=== PATIENT | female | born 1940 | race Caucasian/White ===

== ENCOUNTER 2019-08-22 09:25 | Emergency (ER) | payer MEDICARE, SELFPAY ==
[2019-08-22 09:26] VITALS: BP 141/68; PULSE 72; RESP 21; TEMP 36.4; O2SAT 98; BMI 25.1
[2019-08-22 10:13] LABS: Anion Gap 8 (5-15); BUN 19 mg/dL (7-18); BUN/Creat Ratio 20.7 RATIO (10-20); Calcium,Total 8.7 mg/dL (8.5-10.1); Chloride 103 mmol/L (98-107); Creatinine, Serum 0.92 mg/dL (0.55-1.02); EST Glomerular Filtration Rate 63 mL/min (>60); Est Glom Filt Rate - Afr Amer 77 mL/min (>60); Estimated Creatinine Clearance 42.36 ml/min; Glucose 95 mg/dL (74-106); Magnesium 2.3 mg/dL (1.6-2.6); Sodium Level 139 mmol/L (136-145)
--- NOTE | 2019-08-22 10:24 | ED.VIS.GEN ---
History of Present Illness Informant: Patient Narrative: 79-year-old female presents with bilateral lower extremities cramping. Patient states that today she was at a car repair store and she had cramping in her left groin. This then radiated to her right groin. She tried to stand up but was unable to. States that she laid on the ground and EMS was called. States that on transport with EMS symptoms resolved. At this time she is totally asymptomatic. She states that she does have a history of muscle cramping but this was in a new location for her. Denies any chest pain, dyspnea, nausea vomiting or diarrhea. States that she has not been drinking well recently. Does state that she has a history of chronic UTIs. She is on Bactrim daily. She was on her way to follow-up with her urologist to have a urine culture obtained. She does not want a urinalysis obtained in the ED at this time <Marcel Tapia - Last Filed: 08/22/19 16:03> <Etelvina Hall - Last Filed: 08/22/19 16:07> Chief Complaint: Dizziness Past Medical History Past Medical History: - - Gastroparesis, chronic UTIs Smoking Status: Never smoker <Marcel Tapia - Last Filed: 08/22/19 16:03> <Etelvina Hall - Last Filed: 08/22/19 16:07> - Allergies and Home Meds Allergies/Adverse Reactions: Allergies No Known Allergies Allergy (Verified 08/22/16 07:11) Primary Care Physician: Ferny Sprague III, MD [Primary Care Provider] - 3-5 Days Review of Systems General: Denies: Chills, Fever, Sweats Eyes: Denies: Visual changes - bilaterally, Diplopia ENT: Denies: Rhinorrhea, Sore throat Cardiovascular: Denies: Chest pain, Palpitations Respiratory: Denies: Dyspnea, Cough, Dyspnea on exertion Gastrointestinal: Denies: Abdominal pain, Nausea, Vomiting, Diarrhea, Melena, Hematochezia Genitourinary: Denies: Dysuria, Hematuria, Frequency Musculoskeletal: Reports: Extremity Pain - Lateral lower extremity cramping. Denies: Back pain Skin: Denies: Rash, Wounds Neurological: Denies: Headache, Weakness, Numbness <Marcel Tapia - Last Filed: 08/22/19 16:03> Physical Exam Vital Signs/Narrative: Vital Signs Temp Pulse Resp BP Pulse Ox 08/22/19 09:26 97.6 F L 72 21 H 141/68 H 98 Inital Vital Signs reviewed: Yes General: Well nourished, Well developed, No Acute Distress Head: Normocephalic, Atraumatic Eyes: Perrl, EOMI ENT: Moist mucous membranes, No rhinorrhea Neck: Supple, Nontender Cardiovascular: Regular rate, Regular rhythm, No murmurs Respiratory: No distress, CTA bilaterally, Chest nontender Abdomen: Soft, Nontender, Nondistended, Normal bowel sounds Back: Nontender, Normal Inspection Extremities: No edema, - - She has mild tenderness over the inner thigh bilaterally. No bruising or ecchymosis. Distal pulses intact, DP and PT pulses intact. Appropriate motor lower extremities bilaterally. Skin: Normal color, No rash Neurological: Alert, Oriented x3, Cranial nerves II-XII grossly intact, Normal Strength, Normal Sensation Psychological: Normal affect, Normal Mood <Marcel Tapia - Last Filed: 08/22/19 16:03> Diagnostic/Tx/Re-eval - Medical Decision Making Evaluated for bilateral lower extremity cramping. Symptoms have resolved. She is asymptomatic at this time. Also missed a recent dysuria. Urinalysis was offered but patient declined due to she was about to have an outpatient urine culture obtained today. Patient was given 1 L of IV fluid. BMP was obtained was unremarkable. Patient had a normal magnesium. Patient remained asymptomatic. Patient will be instructed to follow-up with her primary care provider. Patient agreed with the plan discharged home <Marcel Tapia - Last Filed: 08/22/19 16:03> Laboratory Results 08/22/19 09:30 Sodium 139 Potassium 4.0 Chloride 103 Carbon Dioxide 28.0 Anion Gap 8 BUN 19 H Creatinine 0.92 Estim Creat Clear Calc 42.36 Est GFR (MDRD) Af Amer 77 Est GFR (MDRD) Non-Af 63 BUN/Creatinine Ratio 20.7 H Glucose 95 Calcium 8.7 Magnesium 2.3 - Medical Decision Making Patient seen and evaluated with resident. Patient states she was at a local car repair shop this morning when she developed severe cramping in both lower extremities. She states she has had similar in the past, but never quite in this location of the severe. EMS was called and they started IV fluids. At the time of arrival to the emergency room patient states her symptoms have completely resolved. She denies any recent injury or falls. Patient sitting upright in bed no acute distress. Head and neck examination normal. Heart is regular rate and rhythm. Lung sounds are clear. Abdomen soft nontender. Neuro exam is unremarkable. She is normal strength and sensation on testing. She has strong distal pulses throughout. Chemistry studies are reviewed and unremarkable. Magnesium level is normal. Patient has had no further symptoms while in the emergency room. She will be discharged at this time will increase fluids at home. <Etelvina Hall - Last Filed: 08/22/19 16:07> ED Disposition <Marcel Tapia - Last Filed: 08/22/19 16:03> <Etelvina Hall - Last Filed: 08/22/19 16:07> - Plan for ED Patient: Disposition: Home or Assisted Living Diagnosis: Leg cramping Instructions: Muscle Spasm Referrals: Ferny Sprague III, MD [Primary Care Provider] - 3-5 Days
[2019-08-22 11:13] VITALS: BP 150/92; PULSE 75; RESP 16
== END 2019-08-22 11:14 | disposition home or self-care (01) ==
PROVIDERS: Emergency Provider Emergency Medicine; Family Provider Family Medicine; PCP Family Medicine
DX: R25.2 Cramp and spasm (principal); Z87.440 Personal history of urinary (tract) infections; Z79.2 Long term (current) use of antibiotics
CPT/HCPCS: 80048; 83735; 99284; J7030

== ENCOUNTER 2020-09-27 05:37 | Emergency (ER) | payer MEDICARE, SELFPAY ==
[2020-09-27 05:38] VITALS: BP 144/70; PULSE 77; RESP 16; TEMP 36.7; O2SAT 98; BMI 26.9
--- NOTE | 2020-09-27 05:45 | ED.VIS.GEN ---
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 She is postoperative day 6 from an ERCP where they performed a sphincterotomy and plastic biliary stent. She tells me she is not having abdominal pain. She did eat macaroni and cheese and hot chocolate yesterday. She has been having bowel movements. She states that since surgery she has been nauseated. Is not relieved with her Zofran. She states that she talk to her doctor's office the other day and they mentioned pancreatitis. She would like blood work done specifically pancreatitis testing. I informed her that be pretty odd to have a significant case of pancreatitis and not be having abdominal pain. No fevers but she states she feels warm when she gets really nauseated. She has not called her doctors and mention that the Zofran is not working. She called EMS this morning because the nausea is persisting. Her surgery was performed at [facility]. Past Medical History - Allergies and Home Meds Allergies/Adverse Reactions: Allergies cyclobenzaprine [From Flexeril] Adverse Reaction (Verified 09/27/20 05:44) Upset Stomach erythromycin base Adverse Reaction (Verified 09/27/20 05:44) Upset Stomach metoclopramide [From Reglan] Adverse Reaction (Verified 09/27/20 05:44) Upset Stomach naproxen Adverse Reaction (Verified 09/27/20 05:44) Upset Stomach nitrofurantoin [From Macrobid] Adverse Reaction (Verified 09/27/20 05:44) Upset Stomach Primary Care Physician: Ferny Sprague III, MD [Primary Care Provider] - As Needed Surgical History: cholecystectomy, - - ERCP Smoking Status: Never smoker Drugs: None Review of Systems General: Denies: Chills, Fever, Sweats Eyes: Denies: Visual changes - bilaterally, Diplopia ENT: Denies: Rhinorrhea, Sore throat Cardiovascular: Denies: Chest pain, Palpitations Respiratory: Denies: Dyspnea, Cough, Dyspnea on exertion Gastrointestinal: Reports: Nausea. Denies: Abdominal pain, Vomiting, Diarrhea, Melena, Hematochezia Genitourinary: Denies: Dysuria, Hematuria, Frequency Musculoskeletal: Denies: Back pain, Extremity Pain Skin: Denies: Rash, Wounds Neurological: Denies: Headache, Weakness, Numbness Physical Exam Vital Signs/Narrative: Vital Signs Temp Pulse Resp BP Pulse Ox 09/27/20 05:38 98.1 F 77 16 144/70 H 98 Inital Vital Signs reviewed: Yes General: Well nourished, Well developed, No Acute Distress Head: Normocephalic, Atraumatic Eyes: Perrl, EOMI ENT: Moist mucous membranes, No rhinorrhea Neck: Supple, Nontender Cardiovascular: Regular rate, Regular rhythm, No murmurs Respiratory: No distress, CTA bilaterally, Chest nontender Abdomen: Soft, Nontender, Nondistended, Normal bowel sounds Back: Nontender, Normal Inspection Extremities: Nontender, No edema Skin: Normal color, No rash Neurological: Alert, Oriented x3, Cranial nerves II-XII grossly intact, Normal Strength, Normal Sensation Psychological: - - Patient appears anxious Diagnostic/Tx/Re-eval Laboratory Last Values WBC 5.1 K/mm3 (4.4-11.0) 09/27/20 05:45 RBC 4.46 M/mm3 (4.2-5.4) 09/27/20 05:45 Hgb 13.4 g/dL (12.0-15.0) 09/27/20 05:45 Hct 40.6 % (37-47) 09/27/20 05:45 MCV 91.0 fL (81-99) 09/27/20 05:45 MCH 30.0 pg (27.0-32.0) 09/27/20 05:45 MCHC 33.0 g/dL (32-36) 09/27/20 05:45 RDW Std Deviation 42.3 fl (35.1-43.9) 09/27/20 05:45 RDW Coeff of Kirit 12.6 % (11.6-14.6) 09/27/20 05:45 Plt Count 299 K/mm3 (150-450) 09/27/20 05:45 MPV 8.8 fl (6.2-12.0) 09/27/20 05:45 Immature Gran % (Auto) 0.200 % (0.0-0.9) 09/27/20 05:45 Neut % (Auto) 53.5 % (47-70) 09/27/20 05:45 Lymph % (Auto) 35.4 % (19-41) 09/27/20 05:45 [place] % (Auto) 8.7 % (0-10) 09/27/20 05:45 Eos % (Auto) 1.4 % (0-5) 09/27/20 05:45 Baso % (Auto) 0.8 % (0-1) 09/27/20 05:45 Absolute Neuts (auto) 2.7 X10^3/uL (2.0-7.7) 09/27/20 05:45 Absolute Lymphs (auto) 1.79 X10^3/uL (0.83-4.51) 09/27/20 05:45 Nucleated RBC % 0 % (0-5) 09/27/20 05:45 Sodium 133 mmol/L (136-145) L 09/27/20 05:45 Potassium 4.2 mmol/L (3.5-5.1) 09/27/20 05:45 Chloride 101 mmol/L (98-107) 09/27/20 05:45 Carbon Dioxide 25.0 mmol/L (21.0-32.0) 09/27/20 05:45 Anion Gap 7 (5-15) 09/27/20 05:45 BUN 14 mg/dL (7-18) 09/27/20 05:45 Creatinine 0.94 mg/dL (0.55-1.02) 09/27/20 05:45 Estim Creat Clear Calc 39.01 ml/min 09/27/20 05:45 Est GFR (MDRD) Af Amer 74 mL/min (>60) 09/27/20 05:45 Est GFR (MDRD) Non-Af 61 mL/min (>60) 09/27/20 05:45 BUN/Creatinine Ratio 14.8 RATIO (10-20) 09/27/20 05:45 Glucose 130 mg/dL (74-106) H 09/27/20 05:45 Calcium 8.7 mg/dL (8.5-10.1) 09/27/20 05:45 Total Bilirubin 0.50 mg/dL (0.20-1.00) 09/27/20 05:45 Direct Bilirubin 0.11 mg/dL (0.00-0.30) 09/27/20 05:45 AST 20 U/L (15-37) 09/27/20 05:45 ALT 75 U/L (13-56) H 09/27/20 05:45 Alkaline Phosphatase 110 U/L (45-117) 09/27/20 05:45 Total Protein 7.4 g/dL (6.4-8.2) 09/27/20 05:45 Albumin 3.9 g/dL (3.2-5.0) 09/27/20 05:45 Globulin 3.5 g/dL (2.2-4.2) 09/27/20 05:45 Lipase 131 U/L (73-393) 09/27/20 05:45 - Medical Decision Making Patient received 6.25 mg of Phenergan. She ran out on her call light stating that she is feeling shaky but her nausea was better. She then called out and stated that she was going to throw up. Patient received some Benadryl. Certainly do not feel comfortable giving her Compazine or Phenergan if she is developing a potential akathisia. I went to recommend that she contact her conference translator for any further advice on nausea medicines. However she is eating and drinking. I do not see any evidence of an emergent condition. ED Disposition - Plan for ED Patient: Disposition: Home or Assisted Living Diagnosis: Nausea Instructions: After Endoscopic Retrograde Cholangiopancreatography (ERCP) Referrals: Ferny Sprague III, MD [Primary Care Provider] - As Needed Additional Instructions: Please call your doctor and discuss your nausea. You may inform them that today you had a normal white blood cell count. Your hemoglobin was normal. Your liver enzymes are normal and your lipase level is normal.
[2020-09-27] MEDS: proMETHazine 25 MG/ML Syringe 6.25 MG IV (05:50)
[2020-09-27 05:51] LABS: Absolute Lymphocyte Count 1.79 X10^3/uL (0.83-4.51); Absolute Neutrophil Count 2.7 X10^3/uL (2.0-7.7); Basophil# 0.04 X10^3/uL; Basophil% 0.8 % (0-1); Eosinophil# 0.07 X10^3/uL; Eosinophils% 1.4 % (0-5); Hematocrit 40.6 % (37-47); Hemoglobin 13.4 g/dL (12.0-15.0); Lymphocyte # 1.79 X10^3/ul (4.0); Lymphocyte % 35.4 % (19-41); Mean Platelet Vol. 8.8 fl (6.2-12.0); Monocyte# 0.44 X10^3/uL; Monocyte% 8.7 % (0-10); NRBC Flagged by Analyzer 0 % (0-5); Neutrophil % 53.5 % (47-70); Platelet Count 299 K/mm3 (150-450); RBC Distribution Width CV 12.6 % (11.6-14.6); RBC Distribution Width SD 42.3 fl (35.1-43.9); Red Blood Count 4.46 M/mm3 (4.2-5.4); White Blood Count 5.1 K/mm3 (4.4-11.0)
[2020-09-27] MEDS: 0.9% Normal Saline 1,000 ML 999 ML IV (05:51)
[2020-09-27 06:13] LABS: AST(SGOT) 20 U/L (15-37); Alanine Aminotransfer ALT/SGPT 75 U/L (13-56); Albumin, Serum 3.9 g/dL (3.2-5.0); Alkaline Phosphatase 110 U/L (45-117); Anion Gap 7 (5-15); BUN 14 mg/dL (7-18); BUN/Creat Ratio 14.8 RATIO (10-20); Bilirubin, Direct 0.11 mg/dL (0.00-0.30); Calcium,Total 8.7 mg/dL (8.5-10.1); Chloride 101 mmol/L (98-107); Creatinine, Serum 0.94 mg/dL (0.55-1.02); EST Glomerular Filtration Rate 61 mL/min (>60); Est Glom Filt Rate - Afr Amer 74 mL/min (>60); Estimated Creatinine Clearance 39.01 ml/min; Globulin 3.5 g/dL (2.2-4.2); Glucose 130 mg/dL (74-106); Lipase 131 U/L (73-393); Potassium 4.2 mmol/L (3.5-5.1); Protein, Total 7.4 g/dL (6.4-8.2); Sodium Level 133 mmol/L (136-145)
[2020-09-27] MEDS: DiphenhydrAMINE 50 MG/ML Syringe 12.5 MG IV (06:28)
[2020-09-27 07:14] VITALS: BP 131/69; PULSE 72; RESP 15; O2SAT 98
== END 2020-09-27 07:16 | disposition home or self-care (01) ==
PROVIDERS: Emergency Provider Emergency Medicine; PCP Family Medicine
DX: R11.0 Nausea (principal)
CPT/HCPCS: 80048; 80076; 83690; 85025; 96361; 96374; 96375; 99285; J7030; A4216

== ENCOUNTER 2020-10-05 17:28 | Observation (INO) | payer MEDICARE, SELFPAY ==
[2020-10-05] VITALS (7 sets, daily range): BP systolic 147–157; BP diastolic 72–88; PULSE 67–75; RESP 16–18; TEMP 35.9–36.6; O2SAT 98–99; BMI 25.7; BMI 24.7
--- NOTE | 2020-10-05 18:04 | CT_ITS ---
STUDY: CT BRAIN WITHOUT CONTRAST REASON FOR EXAM: Female, 80 years old. ACUTE OCCIPITAL HEADACHE WITH NAUSEA AND VERTIGO. RADIATION DOSAGE (If Supplied By Facility): CTDIvol = ( 44.99 ) mGy, DLP = ( 745.49 ) mGycm TECHNIQUE: Transaxial CT imaging of the brain was performed without administration of intravenous contrast material. Individualized dose optimization techniques were used for this CT. COMPARISON: No relevant priors. FINDINGS: Normal soft tissue structures. Normal calvarium. Normal size ventricles and extra-axial spaces for the patient''s age. Normal white matter tracts of the cerebral hemispheres. Normal basal ganglia and thalami. Normal brainstem. Normal cerebellum. There is no intracranial hemorrhage. There are no findings of an acute ischemic infarction. Normal visualized paranasal sinuses. CT/Brain/Head without Contrast IMPRESSION: Normal unenhanced CT scan of the brain. Electronically Signed: Regina Cardona MD at 19:08 EST , Service support ,
--- NOTE | 2020-10-05 18:08 | ED.VIS.GEN ---
History of Present Illness Chief Complaint: Headache Detail of Chief Complaint: Both occipital headache and positional vertigo Informant: Patient Onset: Hours - Onset 0900 Context: Sudden Onset Timing: Continuous Quality: Pain Location: Occiput Current Severity: Mild Maximum Severity: Severe Worsened by: Nothing Relieved by: Nothing Associated Symptoms: Chronic nausea for the past 1 to 2 weeks Narrative: Patient is a 80-year-old woman who had obstruction of her biliary duct requiring ERCP with placement of stent. She was discharged from [facility] September 20. She developed a fever with nausea and was seen at [place] emergency room. The cause of her fever was unknown. She was discharged home. On September 30 she was contacted by staff at [facility] and instructed that she needed to return because her blood cultures were positive. She was treated with IV antibiotics and discharged to home on ciprofloxacin. She denies photophobia. Denies neck pain or neck stiffness. She denies paresthesia, anesthesia or motor weakness. She denies double vision, blurred vision loss of vision. She states she has been followed by ophthalmology for increased ocular pressure. She does not have diagnosis of glaucoma. She is on no medication. She denies problems with speech or swallowing. She denies problems with walking. She states if she leans back she becomes dizzy . When asked to define what she means by dizzy she informed me that she is/room is spinning. She presently is not dizzy. The dizziness is transient and positional based on her description. Doctor sent her in to be tested for Covid. Prior similar symptoms: No Recent Illness/Hospitalization: Yes - Past Medical History (1) Biliary obstruction requiring placement Status: Resolved (2) Bacteremia Status: Acute Past Medical History - Allergies and Home Meds Allergies/Adverse Reactions: Allergies cyclobenzaprine [From Flexeril] Adverse Reaction (Verified 09/27/20 05:44) Upset Stomach erythromycin base Adverse Reaction (Verified 09/27/20 05:44) Upset Stomach metoclopramide [From Reglan] Adverse Reaction (Verified 09/27/20 05:44) Upset Stomach naproxen Adverse Reaction (Verified 09/27/20 05:44) Upset Stomach nitrofurantoin [From Macrobid] Adverse Reaction (Verified 09/27/20 05:44) Upset Stomach Primary Care Physician: Ferny Sprague III, MD [Primary Care Provider] - Prior records reviewed: No Surgical History: cholecystectomy, - - ERCP Lives: Alone Smoking Status: Never smoker Alcohol: None Drugs: None Review of Systems General: Denies: Chills, Fever, Malaise, Sweats Eyes: Reports: - - He denies photophobia.. Denies: Visual changes - bilaterally, Blurred Vision - bilaterally, Diplopia ENT: Denies: Bilateral ear pain, Rhinorrhea, Sore throat Cardiovascular: Denies: Chest pain, Palpitations Respiratory: Denies: Dyspnea, Cough, Dyspnea on exertion Gastrointestinal: Reports: Nausea. Denies: Abdominal pain, Vomiting, Diarrhea, Constipation, Melena, Hematochezia, -, - Genitourinary: Denies: Dysuria, Hematuria, Frequency Musculoskeletal: Denies: Myalgias, Arthralgias, Neck pain, Back pain, Swelling, Extremity Pain Skin: Denies: Rash Neurological: Reports: Headache, - - Dizziness as described in the HPI.. Denies: Weakness, Parasthesia, Numbness Hematologic: Denies: Easy bruising, Easy bleeding Physical Exam Vital Signs/Narrative: Vital Signs Temp Pulse Resp BP Pulse Ox 10/05/20 17:31 96.7 F L 75 16 157/88 H 99 10/05/20 17:29 96.7 F L 72 16 157/88 H 98 Inital Vital Signs reviewed: Yes General: Well nourished, Well developed, No Acute Distress Head: Normocephalic, Atraumatic Eyes: Perrl, EOMI, - - There is no APD. There is no papilledema.. Negative for: Pale conjunctiva, Scleral icterus ENT: Moist mucous membranes, No rhinorrhea Neck: Supple, Nontender, No lymphadenopathy, No JVD Cardiovascular: Regular rate, Regular rhythm, No murmurs Respiratory: No distress, CTA bilaterally, Chest nontender Abdomen: Soft, Nontender, Nondistended, Normal bowel sounds Back: Nontender, Normal Inspection. Negative for: CVA tenderness Extremities: Nontender, No edema. Negative for: Calf Tenderness Skin: Normal color, No rash, No Trauma. Negative for: Cyanosis, Diaphoresis, Jaundice, Pallor, Rash, Trauma Neurological: Alert, Oriented x3, Cranial nerves II-XII grossly intact, Normal Strength, Normal Sensation, Normal DTR, - - Cerebellar testing is normal. Psychological: Normal affect, Normal Mood Diagnostic/Tx/Re-eval Impressions Brain CT 10/05/20 18:04 IMPRESSION: Normal unenhanced CT scan of the brain. Electronically Signed: Regina Cardona MD at 19:08 EST , Service support , 10/05/20 18:04 Brain/Head without Contrast [CT] Stat 10/05/20 18:10 Mucosa - Nose SARS-CoV-2 Antigen (Rapid) - Final Laboratory Results 10/05/20 10/05/20 18:15 18:15 WBC 6.3 RBC 4.13 L Hgb 12.1 Hct 37.2 MCV 90.1 MCH 29.3 MCHC 32.5 RDW Std Deviation 39.1 RDW Coeff of Kirit 12.0 Plt Count 365 MPV 8.3 Immature Gran % (Auto) 1.000 H Neut % (Auto) 51.9 Lymph % (Auto) 34.1 [place] % (Auto) 9.4 Eos % (Auto) 2.6 Baso % (Auto) 1.0 Absolute Neuts (auto) 3.3 Absolute Lymphs (auto) 2.14 Nucleated RBC % 0 ESR 20 Sodium 134 L Potassium 3.5 Chloride 101 Carbon Dioxide 28.0 Anion Gap 5 BUN 9 Creatinine 0.72 Estim Creat Clear Calc 36.67 Est GFR (MDRD) Af Amer 101 Est GFR (MDRD) Non-Af 83 BUN/Creatinine Ratio 12.5 Glucose 102 Calcium 8.7 C-React Prot Ext Range 19.70 H Since there is no evidence of acute subarachnoid hemorrhage Lorenzo-Hallpike maneuver was performed. Patient reported symptoms with head to the left. There was no nystagmus noted. Kezia maneuver was performed. When patient was on her left side since she reported symptoms when her head was to the left during the Sutherland-Hallpike she reports diplopia. There is no nystagmus. Since patient is reporting diplopia doubt this is benign paroxysmal positional vertigo. This may represent a central process and MRI is indicated to complete her work-up. - Medical Decision Making Cute headache in an elderly woman need to evaluate for vasculitis, subarachnoid hemorrhage, viral illness. Appropriate blood work was ordered as well as CAT scan of the head. If CAT scan head does not reveal any abnormality will perform Sutherland-Hallpike maneuver and Kezia maneuver for her positional dizziness . ED Disposition - Plan for ED Patient: Disposition: Acute Care Hospital [facility] Diagnosis: Vertigo, Diplopia, Cephalgia Referrals: Ferny Sprague III, MD [Primary Care Provider] -
[2020-10-05 18:30] LABS: Absolute Lymphocyte Count 2.14 X10^3/uL (0.83-4.51); Absolute Neutrophil Count 3.3 X10^3/uL (2.0-7.7); Basophil# 0.06 X10^3/uL; Eosinophil# 0.16 X10^3/uL; Eosinophils% 2.6 % (0-5); Hematocrit 37.2 % (37-47); Hemoglobin 12.1 g/dL (12.0-15.0); Lymphocyte # 2.14 X10^3/ul (4.0); Lymphocyte % 34.1 % (19-41); Mean Corp Hgb Conc 32.5 g/dL (32-36); Mean Corpuscular Hgb 29.3 pg (27.0-32.0); Mean Corpuscular Volume 90.1 fL (81-99); Mean Platelet Vol. 8.3 fl (6.2-12.0); Monocyte# 0.59 X10^3/uL; Monocyte% 9.4 % (0-10); NRBC Flagged by Analyzer 0 % (0-5); Neutrophil # 3.26 X10^3/uL (2.7-7.7); Neutrophil % 51.9 % (47-70); Platelet Count 365 K/mm3 (150-450); RBC Distribution Width SD 39.1 fl (35.1-43.9); Red Blood Count 4.13 M/mm3 (4.2-5.4); White Blood Count 6.3 K/mm3 (4.4-11.0)
[2020-10-05 18:42] LABS: Anion Gap 5 (5-15); BUN 9 mg/dL (7-18); BUN/Creat Ratio 12.5 RATIO (10-20); Calcium,Total 8.7 mg/dL (8.5-10.1); Chloride 101 mmol/L (98-107); Creatinine, Serum 0.72 mg/dL (0.55-1.02); EST Glomerular Filtration Rate 83 mL/min (>60); Est Glom Filt Rate - Afr Amer 101 mL/min (>60); Estimated Creatinine Clearance 36.67 ml/min; Glucose 102 mg/dL (74-106); Potassium 3.5 mmol/L (3.5-5.1); Sodium Level 134 mmol/L (136-145)
[2020-10-05 18:43] LABS: Erythrocyte Sedimentation Rate 20 mm/hr (0-30)
--- NOTE | 2020-10-05 19:51 | HP.PCM_ITS ---
Problem List (1) Vertigo Status: Acute (2) Cephalgia Status: Acute Qualifiers: Headache type: unspecified Headache chronicity pattern: unspecified pattern (3) Diplopia Status: Acute (4) HTN (hypertension) Status: Chronic Qualifiers: Hypertension type: essential hypertension Qualified Code(s): I10 - Essential (primary) hypertension (5) HLD (hyperlipidemia) Status: Chronic Qualifiers: Hyperlipidemia type: unspecified Qualified Code(s): E78.5 - Hyperlipidemia, unspecified (6) Hypothyroidism Status: Chronic Qualifiers: Hypothyroidism type: unspecified Qualified Code(s): E03.9 - Hypothyroidism, unspecified (7) Biliary obstruction requiring placement Status: Resolved (8) Bacteremia Status: Chronic History of Present Illness Date of Admission: 10/05/20 Chief Complaint: Vertigo The patient is a 80 y/o F w/ PMHx: HTN, HLD, Hypothyroidism, Recent biliary stent placement (ERCP ) with history of bacteremia with recent admissi on [facility], discharged on 09/20/20 with ongoing treatment with oral ciprofloxacin started 2 days prior to current presentation with the duration of treatment for approximately 10 days per discussion with her via infectious disease who presents to the [facility] ED on with history of onset suddenly this a.m. at approximately 9 AM onset of severe diffuse headache described as a constant aching with no light or sound sensitivity specifically rated at that time a 9 of 10 in severity and upon current presentation improved to 2 out of 10 now primarily focused in the posterior occiput and neck region with then onset sensation of dizziness and when she attempted to get up and ambulate onset of a spinning vertiginous sensation, not improving with associated significant nausea without emesis with no recent fevers or chills following recent evaluation and start on antibiotic therapy for bacteremia following recent biliary stent placement prompting ED evaluation. In the ED Inez-Hallpike maneuver elicited nausea and dizziness when the head was turned to the left but there is no evident nystagmus with attempted Kezia maneuver with onset double vision specifically when turning head to the left. Double vision has resolved upon evaluation of patient following ED evaluation. Work-up in the ED included T 96.7, heart rate 72, BP 157/88, respiratory rate 16, 98% on room air, CBC with WBC 6.3, hemoglobin 12.1, platelet 365 with out marked shift however patient with immature increased granulocytes, MP with sodium 134, CRP 19.70, rapid antigen Covid testing negative, CT of the brain with no acute intracranial findings. Past Medical History Past Medical History (Chronic Problems): Chronic Problems Bacteremia (Chronic) HTN (hypertension) (Chronic) HLD (hyperlipidemia) (Chronic) Hypothyroidism (Chronic) Allergies cyclobenzaprine [From Flexeril] Adverse Reaction (Verified 09/27/20 05:44) Upset Stomach erythromycin base Adverse Reaction (Verified 09/27/20 05:44) Upset Stomach metoclopramide [From Reglan] Adverse Reaction (Verified 09/27/20 05:44) Upset Stomach naproxen Adverse Reaction (Verified 09/27/20 05:44) Upset Stomach nitrofurantoin [From Macrobid] Adverse Reaction (Verified 09/27/20 05:44) Upset Stomach Home Medications: Ambulatory Orders Medication Instructions Recorded Levothyroxine [Synthroid] 25 mcg PO DAILY 04/22/16 Estradiol 1 applicatio VAGINAL QHS 09/27/20 Lactobacillus Acidophilus 1 ea PO DAILY 09/27/20 [Probiotic] Potassium (Otc) [Potassium Otc] 2 tab PO DAILY 09/27/20 Ciprofloxacin [Cipro] 500 mg PO BID 10/05/20 Surgical History: cholecystectomy, - - ERCP with recent biliary stent placement, remote cholecystectomy, hysterectomy, appendectomy, pelvic floor surgery intervention. 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 Denies: Chills, Fever, Weight Change HEENT: Reports: Head Aches, Visual Changes. Denies: Sinus Congestion, Sinus Drainage Cardiovascular: Denies: Chest Pain, Palpitations Respiratory: Denies: Cough, Shortness of breath at rest, Sputum production Gastrointestinal: Reports: Nausea. Denies: Abdominal Pain, Vomiting Genitourinary: Denies: Dysuria Musculoskeletal: Denies: Joint Pain, Joint Tenderness Skin: Denies: Rash, Wounds Neurological: Reports: Double vision, - - Vertigo.. Denies: Focal weakness, Numbness, Tingling Psychiatric: Denies: Anxiety, Depression, Homicidal Ideations, Suicidal Ideations Hematologic/ Lymphatic: Denies: Easy Bruising, Easy Bleeding VTE Information - Inpt Only VTE Present on Admission: No VTE Mechan Device Prophylaxis: SCD's VTE Pharm Prophylaxis ordered?: Yes Patient Problems: Active and Suspected Problems Vertigo (Acute) Diplopia (Acute) Cephalgia (Acute) Subjective: Patient seated upright in the ED bed, fatigued appearance otherwise no acute distress, denies any further left sided double vision changes. Objective: Physical Examination: General: awake, alert, oriented x 3 and cooperative, seated upright in bed, fatigued appearance, notes headache has localized to the neck and occiput region but improved, 1210 in severity, no double vision currently, vertiginous symptoms only with certain positional changes to the left. Skin: normal color, turgor, no icterus, cyanosis. HEENT: AT/NC, EOMI, no obvious nystagmus even with left head turn, PERRLA, dry MM, no carotid bruits or JVD noted. Lungs: Diminished breath sounds, greater bases, moderate decrease BL bases, no rales, ronchi or wheezing. Heart: Regular rate and rhythm; no gallop, rub audible. Abdomen: soft, NTTP, ND, normal BS, no HSM. Extremities: no cyanosis, clubbing, or edema. Neurological: patient awake, alert, oriented as noted; cognitive function intact; pupils equally reactive to light and accomodation; cranial nerves II-XII grossly normal, moving all 4 extremities, no focal deficits, strength difficult to assess given significant malaise and fatigue and vertiginous symptoms, appears preserved, negative [id number] and [id number], negative Babinski, unable to elicit nystagmus with evaluation. Psychiatric: affect appears fatigued otherwise normal, no acute evidence of depressive or anxiety feelings. - Physical Exam Vitals/I&O's: Vital Signs Temp Pulse Resp BP Pulse Ox 96.7 F L 75 16 157/88 H 99 10/05/20 17:31 10/05/20 17:31 10/05/20 17:31 10/05/20 17:31 10/05/20 17:31 Oxygen Delivery Method Room Air Weight: 140 lb 10.479 oz Body Mass Index (BMI) 25.7 Microbiology Past 72 Hours 10/05/20 18:10 Mucosa - Nose SARS-CoV-2 Antigen (Rapid) - Final Laboratory Results 10/05/20 18:15: WBC 6.3, RBC 4.13 L, Hgb 12.1, Hct 37.2, MCV 90.1, MCH 29.3, MCHC 32.5, RDW Std Deviation 39.1, RDW Coeff of Kirit 12.0, Plt Count 365, MPV 8.3, Immature Gran % (Auto) 1.000 H, Neut % (Auto) 51.9, Lymph % (Auto) 34.1, Mo no % (Auto) 9.4, Eos % (Auto) 2.6, Baso % (Auto) 1.0, Absolute Neuts (auto) 3.3, Absolute Lymphs (auto) 2.14, Nucleated RBC % 0, ESR 20 10/05/20 18:15: Sodium 134 L, Potassium 3.5, Chloride 101, Carbon Dioxide 28.0, Anion Gap 5, BUN 9, Creatinine 0.72, Estim Creat Clear Calc 36.67, Est GFR (MDRD) Af Amer 101, Est GFR (MDRD) Non-Af 83, BUN/Creatinine Ratio 12.5, Glucose 102, Calcium 8.7, C-React Prot Ext Range 19.70 H Assessment/Plan All Active Problems Biliary obstruction requiring placement (Resolved) Vertigo (Acute) Diplopia (Acute) Cephalgia (Acute) The patient is a 80 y/o F w/ PMHx: HTN, HLD, Hypothyroidism, Recent biliary stent placement (ERCP ) with history of bacteremia with recent admission [facility], discharged on 09/20/20 with ongoing treatment with oral ciprofloxacin started 2 days prior to current presentation with the duration of treatment for approximately 10 days per discussion with her via infectious disease who presents to the [facility] ED on with history of onset severe headache with associated vertiginous sensation not improving. 1. Vertigo with vision changes, atypical presentation, possible BPPV versus acute CVA: Will admit to PCU, will obtain MRI Brain, MRA Head and Neck, ECHO, PT/OT/Speech/Nutrition evaluation per protocol. Will plan consultation with Neurology for evaluation once imaging obtained. Will allow permissive HTN given acute presentation pending MRI brain, maintain on asa, add statin w/ AM FLP, fall precautions. Mag, TSH, FLP, HgbA1c pending. CRP is elevated 19.70 but patient with recent infection as noted #2. 2. Recent biliary stent placement with bacteremia: Records requested, will continue ciprofloxacin regimen with noted plan for 10-day duration, currently on second day of treatment per patient discussion. 3. Hypothyroidism: Continue home synthroid regimen, TSH and free T4 pending. 4. Hypertension: As noted allowing permissive hypertension, add regimen back once appropriate, as needed agents. 5. Hyperlipidemia: Not on regimen, will add moderate dose statin given age, FLP in AM. 6. DVT prophylaxis: SCDs, Lovenox. 7. CODE status: Patient ABDIRIZAK is her daughter Siena Hay and living will is currently in place. Discussed CODE status at length including difference between FULL code, DNR-CCA and DNR-CC status. Following discussions about the differences in these status, requested DNR-CCA, no intubation status. Advanced Care Planning Face to Face Time: 16 minutes. OBSV E&M: 72129 Initial observation care L3 Procedures: 19686 Advncd Care Plan 30 Min
--- NOTE | 2020-10-05 20:48 | ECHOD_ITS ---
Reason For Study: CVA Procedure This was a 2D Doppler, Color Flow transthoracic echocardiogram. Exam performed portable in patient room. Left Ventricle Normal LV size. The estimated ejection fraction is 70 %. No evidence for diastolic dysfunction. No regional wall motion abnormalities noted. Right Ventricle Normal RV size. Normal systolic function. Atria Normal left atrium. Normal right atrium. No doppler evidence for ASD. Bubble contrast study negative for right to left interatrial shunt. Mitral Valve There is no mitral valve stenosis. No mitral valve insufficiency. Tricuspid Valve There is no tricuspid stenosis. Trivial tricuspid valve insufficiency. Pulmonary artery systolic pressure is 25-30 mmHg. Aortic Valve Trisinus/trileaflet aortic valve. There is no aortic stenosis. No aortic valve insufficiency. Pulmonic Valve There is no pulmonic valvular stenosis. No pulmonic valve insufficiency. Medication Performed a rapid injection of agitated mix of 9 cc saline and 1cc air to assess for atrial septal defect. MMode/2D Measurements & Calculations LVIDd: 4.0 cm IVSd: 0.68 cm Ao root diam: 2.5 cm LVIDs: 2.5 cm LVPWd: 0.63 cm RVDd: 2.7 cm FS: 37.4 % LAV(MOD-bp): 41.4 ml LVAd ap4: 23.9 cm2 SV(MOD-sp4): 38.7 ml LAV(MOD-bp) Indexed: 25.4 ml/m2 EDV(MOD-sp4): 60.1 ml LAV(MOD-sp2): 41.8 ml EDV(sp4-el): 61.8 ml LAV(MOD-sp4): 31.9 ml LVAs ap4: 12.4 cm2 ESV(MOD-sp4): 21.4 ml ESV(sp4-el): 21.5 ml EF(MOD-sp4): 64.4 % EF(sp4-el): 65.3 % SV(sp4-el): 40.3 ml LA dimension(2D): 3.0 cm LA A4 area: 12.7 cm2 RA A4 area: 12.8 cm2 Time Measurements MV dec time: 0.21 sec Doppler Measurements & Calculations MV E max jung: 79.0 cm/sec Lat Peak E' Jung: 10.3 cm/sec Med Peak E' Jung: 6.4 cm/sec MV A max jung: 88.8 cm/sec E/E' lat: 7.6 E/E' med: 12.4 MV E/A: 0.89 Ao V2 max: 130.9 cm/sec LV V1 max: 102.3 cm/sec PA V2 max: 103.8 cm/sec Ao max P.9 mmHg LV V1 max P.2 mmHg TR max jung: 243.5 cm/sec TR max P.7 mmHg Interpretation Summary The estimated ejection fraction is 70 %. No evidence for diastolic dysfunction. Ordering Physician: Gisele Victor Referring Physician: JILL VILLEGAS III Performed By: Shayla Swanson, KOREY, RVT
[2020-10-05 21:16] LABS: Magnesium 2.1 mg/dL (1.6-2.6)
[2020-10-05] MEDS: Ondansetron 4 MG/2 ML Vial IV (22:10)
[2020-10-05] MEDS: Acetaminophen 325 MG Tablet 650 MG PO (22:10)
[2020-10-05] MEDS: Ciprofloxacin 500 MG Tablet PO (22:10)
[2020-10-05] MEDS: 0.9% Saline Lock 10 ML Syringe IV (22:11)
[2020-10-05] MEDS: Meclizine 12.5 MG Tablet PO (22:11)
[2020-10-05] MEDS: 0.9% Normal Saline 1,000 ML 100 ML IV (22:11)
[2020-10-06] VITALS (17 sets, daily range): BP systolic 115–160; BP diastolic 56–103; PULSE 65–81; RESP 14–19; TEMP 36.3–36.9; O2SAT 95–100
[2020-10-06] MEDS: proCHLORPERazine 10 MG/2 ML Vial 5 MG IV (01:19)
[2020-10-06] MEDS: Levothyroxine 25 MCG TABLET PO (04:59)
[2020-10-06] MEDS: Meclizine 12.5 MG Tablet PO ×3 (04:59→22:29)
[2020-10-06 05:39] LABS: Absolute Lymphocyte Count 1.71 X10^3/uL (0.83-4.51); Absolute Neutrophil Count 2.8 X10^3/uL (2.0-7.7); Basophil# 0.06 X10^3/uL; Basophil% 1.1 % (0-1); Eosinophil# 0.14 X10^3/uL; Eosinophils% 2.6 % (0-5); Hematocrit 35.8 % (37-47); Hemoglobin 11.6 g/dL (12.0-15.0); Lymphocyte # 1.71 X10^3/ul (4.0); Lymphocyte % 31.8 % (19-41); Mean Corp Hgb Conc 32.4 g/dL (32-36); Mean Corpuscular Volume 89.5 fL (81-99); Mean Platelet Vol. 8.1 fl (6.2-12.0); Monocyte# 0.61 X10^3/uL; Monocyte% 11.3 % (0-10); NRBC Flagged by Analyzer 0 % (0-5); Neutrophil # 2.82 X10^3/uL (2.7-7.7); Neutrophil % 52.5 % (47-70); Platelet Count 364 K/mm3 (150-450); RBC Distribution Width SD 39.5 fl (35.1-43.9); White Blood Count 5.4 K/mm3 (4.4-11.0)
[2020-10-06 06:06] LABS: ALB/GLOB Ratio 0.9 RATIO (0.9-2.4); AST(SGOT) 12 U/L (15-37); Alanine Aminotransfer ALT/SGPT 24 U/L (13-56); Albumin, Serum 3.1 g/dL (3.2-5.0); Alkaline Phosphatase 91 U/L (45-117); Anion Gap 6 (5-15); BUN 10 mg/dL (7-18); BUN/Creat Ratio 13.2 RATIO (10-20); Calcium,Total 8.4 mg/dL (8.5-10.1); Chloride 106 mmol/L (98-107); Cholesterol 174 mg/dL (200); Creatinine, Serum 0.76 mg/dL (0.55-1.02); EST Glomerular Filtration Rate 79 mL/min (>60); Est Glom Filt Rate - Afr Amer 95 mL/min (>60); Estimated Creatinine Clearance 36.67 ml/min; Globulin 3.3 g/dL (2.2-4.2); Glucose 102 mg/dL (74-106); High Density Lipoprotein 41 mg/dL; Protein, Total 6.4 g/dL (6.4-8.2); Sodium Level 138 mmol/L (136-145); T4 Free Direct 1.02 ng/dL (0.76-1.46); Triglycerides 92 mg/dL; Very Low Density Lipoprotein 18 mg/dL (5-40)
[2020-10-06 07:09] LABS: Hemoglobin A1c 5.9 % (3.8-5.6)
--- NOTE | 2020-10-06 08:10 | RAD_ITS ---
STUDY: X-RAY CHEST REASON FOR EXAM: Female, 80 years old. SCREENING FOR MRI, SANCHEZ, VERTIGO TECHNIQUE: Single AP portable view of the chest. COMPARISON: None. FINDINGS: The lungs are clear and expanded. There is no demonstrated pleural abnormality. Normal size heart. Normal mediastinum and saurabh. Normal visualized pulmonary arteries. Normal visualized aortic arch and descending thoracic aorta. Normal visualized thoracic spine. There is degenerative osteoarthritis of the bilateral shoulders. There is no demonstrated abnormality of the visualized soft tissue structures of the upper abdomen. RAD/Chest 1 View (Portable) IMPRESSION: Degenerative changes, as described above. No demonstrated acute cardiopulmonary process. Electronically Signed: Brissa Goddard, at 8:21 EST Tel , Service support ,
[2020-10-06] MEDS: Aspirin 81 MG TAB.CHEW PO (08:26)
[2020-10-06] MEDS: LORazepam 2 MG/ML Syringe 0.5 MG IV (08:51)
[2020-10-06] MEDS: 0.9% Saline Lock 10 ML Syringe IV (08:52)
--- NOTE | 2020-10-06 09:00 | MRI_ITS ---
STUDY: MRA OF THE HEAD WITHOUT CONTRAST REASON FOR EXAM: Female, 80 years old. vertigo, diplopia,h/a TECHNIQUE: 3-D [id number] (TOF) imaging was performed with MIPs. The study was performed unenhanced. COMPARISON: None. FINDINGS: Normal bilateral petrous carotid arteries. Normal right cavernous carotid artery with a normal supraclinoid bifurcation. Normal left cavernous carotid artery with a normal supraclinoid bifurcation. Normal right A1 segments of the anterior cerebral artery. Normal left A1 segments of the anterior cerebral artery. Normal intact anterior communicating artery (ACOM). Normal bilateral A2 segments of the anterior cerebral arteries. Normal right M1 and M2 segments of the middle cerebral arteries, with a normal M1 bifurcation. Normal left M1 and M2 segments of the middle cerebral arteries, with a normal M1 bifurcation. There is non-visualization of the right posterior communicating artery (PCOM). 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 Normal bilateral vertebral arteries. Normal basilar artery with a normal basilar bifurcation. The visualized bilateral superior cerebellar (SCA) arteries are normal. Normal bilateral P1, P2 and visualized P3 segments of the posterior cerebral arteries. There is no demonstrated aneurysm of the ione of Matta. There is no major vessel occlusion or hemodynamically significant stenosis. There is no demonstrated abnormality of the visualized brain. MRI/MRA Head ONLY without Contrast IMPRESSION: Normal MRA of the head Electronically Signed: Brissa Goddard, at 11:24 EST Tel , Service support ,
--- NOTE | 2020-10-06 09:00 | MRI_ITS ---
We are attempting to reach an attending provider to discuss findings. An addendum with communication details will be sent when the communication is complete. STUDY: MRI BRAIN WITHOUT CONTRAST REASON FOR EXAM: Female, 80 years old. cva, diplopia, vertigo TECHNIQUE: Standardized multiplanar fat and water weighted pulse sequences were obtained. COMPARISON: 10/05/2020 FINDINGS: Normal size of the ventricles and extra-axial spaces for the patient''s age. There are a limited number of small white matter hyperintensities, distributed throughout the deep white matter tracts of the cerebral hemispheres, consistent with mild chronic white matter ischemic changes. There is a small new right subdural hematoma measuring 3 mm in maximum thickness overlying the right cerebellar hemisphere. Normal bilateral basal ganglia. Normal thalami. There is no extra-axial fluid accumulation. Normal flow voids within the major intracranial circulation suggesting patency by spin echo criteria. Normal sella turcica, pituitary gland, infundibular stalk, optic chiasm and hypothalamus. Normal tectal plate and pineal gland. Normal midbrain, filomena and medulla. Normal cerebellum. Normal basal cisterns. Normal bilateral temporal bones. Normal bilateral internal auditory canals. No demonstrated orbital abnormality, within the constraints of a routine brain study. Normal visualized paranasal sinuses. Normal calvarium and skull base. Normal visualized soft tissue structures. Normal visualized upper cervical spine. MRI/Brain without Contrast IMPRESSION: There is a small new right subdural hematoma measuring 3 mm in maximum thickness overlying the right cerebellar hemisphere. Electronically Signed: Brissa Goddard, at 11:23 EST Tel , Service support ,
--- NOTE | 2020-10-06 09:00 | MRI_ITS ---
STUDY: MRA NECK WITHOUT CONTRAST REASON FOR EXAM: Female, 80 years old. cva, diplopia, vertigo TECHNIQUE: Source images were obtained, MIPs were performed. The study was performed unenhanced. COMPARISON: None. FINDINGS: RIGHT CAROTID ARTERIES: Normal right common carotid artery (CCA). Normal right common carotid bulb. Normal origin of the right internal carotid (ICA) artery without a hemodynamically significant stenosis. Normal visualized cervical portion of the right internal carotid artery. Normal origin of the right external carotid artery (ECA). LEFT CAROTID ARTERIES: Normal left common carotid artery (CCA). Normal left common carotid bulb. Normal origin of the left internal carotid (ICA) artery without a hemodynamically significant stenosis. Normal visualized cervical portion of the left internal carotid artery. Normal origin of the left external carotid artery (ECA). VERTEBRAL ARTERIES: Normal antegrade flow within the bilateral vertebral artery without a hemodynamically significant stenosis. MRI/MRA Neck without Contrast IMPRESSION: Normal bilateral cervical carotid and vertebral arteries. Electronically Signed: Brissa Goddard, at 11:25 EST Tel , Service support ,
[2020-10-06] MEDS: Famotidine 20 MG Tablet PO (10:56)
[2020-10-06] MEDS: Ciprofloxacin 500 MG Tablet PO ×2 (10:56→22:29)
--- NOTE | 2020-10-06 12:11 | TELEMED_ITS ---
[facility] Telemed has confirmed receipt of a request for visit. This document confirms receipt of the order initiating the consult. To find the results of the consultation, please view the patient's reports for the scanned Telemed Consult.
--- NOTE | 2020-10-06 12:15 | CASEMGMT ---
Pt Living will and HCPOA is in pt echart. Documents printed and placed on chart. SW spoke with pt who states first listed HCPOA Steve Santana is and the second and third alternates Aileen Lau and Siena Weber are the HCPOA. GIA Francois
--- NOTE | 2020-10-06 12:20 | CASEMGMT ---
Social Work SW to room to meet with patient for initial transition planning/care coordination assessment. SW introduced self and role at [facility]. Pt voices understanding and consents to assessment at this time. Pt resting in bed in no distress at this time. Pt is A/O x3 and answers all questions appropriately. PCP: Ferny Sprague III Specialists: Blades - gastro, Gopar - ID, Poraso - hardware engineering manager/urologist Preferred Pharmacy: [facility] Insurance: [employer] [facility] Prescription Benefit: Yes Living Will/HPOA: Pt spouse Steve listed as HCPOA however he is . Alternates listed are Aileen Lau and Siena Hay and pt confirms they are the HCPOA. Pt does have a living will. Documents printed from [facility] and placed on chart. LNOK: Daughters Aileen Lau, Siena Hay and Aletha Santana Living Arrangements: Pt lives home alone in a split level home. Pt has had no difficulty navigating steps in home and is independent with all care needs and IADLS. Pt dgt is available for assistance if needed, however pt has been completely independent and active. Transportation: Pt states drives self and states no transportation concerns at this time. Dgt Aileen to transport home. DME: Denies using any DME and denies needs. HHC/SNF: No Pt wishes to return home and states has no concerns with going home at time of discharge. Pt is independent and does not feel she will need any assitance at home. Pt MRI was positive for stroke. SW completed PHQ9 depression screen. Pt score of 0/29 indicating no depression at this time. SW will remain available should any needs arise. GIA Marie
--- NOTE | 2020-10-06 12:29 | PN_ITS ---
Patient Problems: Active and Suspected Problems Vertigo (Acute) Diplopia (Acute) Cephalgia (Acute) Subjective: Feels much better today, dizziness has resolved. She does relate episodes of feeling like she has head pressure and her blood pressure is not sure why. CT scan on admission was normal. Vitals/I&O's: Vital Signs Temp Pulse Resp BP Pulse Ox 98.1 F 70 16 137/96 H 95 10/06/20 12:23 10/06/20 12:23 10/06/20 12:23 10/06/20 12:23 10/06/20 12:23 Oxygen Delivery Method Room Air Weight: 136 lb 10.986 oz Body Mass Index (BMI) 24.7 Intake and Output for Last 24 Hours 10/04/20 10/05/20 10/06/20 23:59 23:59 23:59 Intake Total 1360 / 1360 Balance 1360 / 1360 General: Alert, Oriented x3, Cooperative, No apparent distress HEENT: Atraumatic, PERRLA, EOMI, Normocephalic Oral: Moist Mucosa Neck: Supple, No JVD Lungs: Normal air movement, No rhonchi, No wheeze, No rales, Diminished Cardiovascular: Regular rate, Regular Rhythm, Normal S1, Normal S2, No murmurs Abdomen: Soft, Non Tender, Non-Distended, No Hepato-splenomegaly Extremities: No edema, Capillary Refill Less than 3 Seconds Skin: No rashes, No breakdown Neurological: Cranial nerves II-XII grossly intact, Neuro grossly intact, Motor Exam 5/5 strength throughout, Sensory exam intact to light touch and pain, - - No nystagmus or ataxia Psych/Mental Status: Normal Affect, Appropriate Microbiology Past 72 Hours 10/05/20 18:10 Mucosa - Nose SARS-CoV-2 Antigen (Rapid) - Final Laboratory Results 10/05/20 18:15: WBC 6.3, RBC 4.13 L, Hgb 12.1, Hct 37.2, MCV 90.1, MCH 29.3, MCHC 32.5, RDW Std Deviation 39.1, RDW Coeff of Kirit 12.0, Plt Count 365, MPV 8.3, Immature Gran % (Auto) 1.000 H, Neut % (Auto) 51.9, Lymph % (Auto) 34.1, Wheeler % (Auto) 9.4, Eos % (Auto) 2.6, Baso % (Auto) 1.0, Absolute Neuts (auto) 3.3, Absolute Lymphs (auto) 2.14, Nucleated RBC % 0, ESR 20 10/05/20 18:15: Sodium 134 L, Potassium 3.5, Chloride 101, Carbon Dioxide 28.0, Anion Gap 5, BUN 9, Creatinine 0.72, Estim Creat Clear Calc 36.67, Est GFR (MDRD) Af Amer 101, Est GFR (MDRD) Non-Af 83, BUN/Creatinine Ratio 12.5, Glucose 102, Calcium 8.7, C-React Prot Ext Range 19.70 H 10/05/20 18:15: Magnesium 2.1 10/06/20 05:15: WBC 5.4, RBC 4.00 L, Hgb 11.6 L, Hct 35.8 L, MCV 89.5, MCH 29.0, MCHC 32.4, RDW Std Deviation 39.5, RDW Coeff of Kirit 12.0, Plt Count 364, MPV 8.1, Immature Gran % (Auto) 0.700, Neut % (Auto) 52.5, Lymph % (Auto) 31.8, Wheeler % (Auto) 11.3 H, Eos % (Auto) 2.6, Baso % (Auto) 1.1 H, Absolute Neuts (auto) 2.8, Absolute Lymphs (auto) 1.71, Nucleated RBC % 0 10/06/20 05:15: Sodium 138, Potassium 4.0, Chloride 106, Carbon Dioxide 26.0, Anion Gap 6, BUN 10, Creatinine 0.76, Estim Creat Clear Calc 36.67, Est GFR (MDRD) Af Amer 95, Est GFR (MDRD) Non-Af 79, BUN/Creatinine Ratio 13.2, Glucose 102, Calcium 8.4 L, Total Bilirubin 0.30, AST 12 L, ALT 24, Alkaline Phosphatase 91, Total Protein 6.4, Albumin 3.1 L, Globulin 3.3, Albumin/Globulin Ratio 0.9, Triglycerides 92, Cholesterol 174, LDL Cholesterol 115, VLDL Cholesterol 18, HDL Cholesterol 41, TSH 3.70, Free T4 1.02 10/06/20 05:15: Hemoglobin A1c 5.9 H Current Medications Acetaminophen (Acetaminophen 325 Mg Tablet) 650 mg PO Q6H PRN PRN PRN Reason: Pain Score 1-10/Temp > 100.7 F Last Admin: 10/05/20 22:10 Dose: 650 mg Documented by: Al Hydroxide/Mg Hydroxide (Mag Hydrox/Al Hydrox/Simeth 30 Ml Udc) 30 ml PO Q6H PRN PRN PRN Reason: Gastric Burning Albuterol Sulfate (Albuterol 2.5 Mg/3 Ml Vial.Neb.) 2.5 mg INHALATION Q2H PRN PRN PRN Reason: Dyspnea, wheezing Atorvastatin Calcium (Atorvastatin Calcium 40 Mg Tablet) 40 mg PO QHS [facility] Last Admin: 10/05/20 22:11 Dose: Not Given Documented by: Ciprofloxacin HCl (Ciprofloxacin 500 Mg Tablet) 500 mg PO BID [facility] Last Admin: 10/06/20 10:56 Dose: 500 mg Documented by: Famotidine (Famotidine 20 Mg Tablet) 20 mg PO DAILY [facility] Last Admin: 10/06/20 10:56 Dose: 20 mg Documented by: Guaifenesin (Guaifenesin 10 Ml Udc (200mg/10ml)) 20 ml PO Q4H PRN PRN PRN Reason: COUGH Hydralazine HCl (Hydralazine 20 Mg/Ml Vial) 5 mg IV Q30M PRN PRN Reason: to maintain BP goals Sodium Chloride () 1,000 mls @ 100 mls/hr IV .Q10H [facility] Last Admin: 10/06/20 08:30 Dose: Not Given Documented by: Labetalol HCl (Labetalol (Prefilled) 20 Mg/4 Ml) 10 - 20 mg IV Q10M PRN PRN PRN Reason: to Maintain BP Goals Levothyroxine Sodium (Levothyroxine 25 Mcg Tablet) 25 mcg PO DAILY@0600 [facility] Last Admin: 10/06/20 04:59 Dose: 25 mcg Documented by: Magnesium Hydroxide (Magnesium Hydroxide 30 Ml Udc) 30 ml PO DAILY PRN PRN PRN Reason: Constipation Meclizine HCl (Meclizine 12.5 Mg Tablet) 12.5 mg PO Q8 [facility] Last Admin: 10/06/20 04:59 Dose: 12.5 mg Documented by: Melatonin (Melatonin 3 Mg Tablet) 3 mg PO QHS PRN PRN PRN Reason: INSOMNIA Nitroglycerin (Nitroglycerin (Inpatient Use) 0.4 Mg Tab.Subl) 0.4 mg SUBLINGUAL Q5M PRN PRN Reason: CARDIAC/CHEST PAIN Ondansetron HCl (Ondansetron 4 Mg/2 Ml Vial) 4 mg IV Q8H PRN PRN PRN Reason: NAUSEA/VOMITING Last Admin: 10/05/20 22:10 Dose: 4 mg Documented by: Prochlorperazine Edisylate (Prochlorperazine 10 Mg/2 Ml Vial) 5 mg IV Q4H PRN PRN PRN Reason: Breakthrough Nausea/Vomiting Last Admin: 10/06/20 01:19 Dose: 5 mg Documented by: Psyllium Hydrophilic Mucilloid (Psyllium 1 Packet) 1 packet PO DAILY PRN PRN PRN Reason: Constipation Senna/Docusate Sodium (Senna/Docusate Sodium 1 Tablet) 2 tablet PO BID PRN PRN PRN Reason: Constipation Sodium Chloride (0.9% Saline Lock 10 Ml Syringe) 10 - 40 ml IV UD PRN PRN Reason: SALINE FLUSH Last Admin: 10/06/20 08:52 Dose: 10 ml Documented by: Throat Lozenges (Benzocaine/Menthol 1 Lozenge) 1 lozenge MUCOUS MEM Q2H PRN PRN PRN Reason: SORE THROAT STROKE Vital Signs/Narrative: Vital Signs Temp Pulse Resp BP Pulse Ox 10/06/20 12:23 98.1 F 70 16 137/96 H 95 10/06/20 11:11 68 10/06/20 10:30 75 17 157/68 H 99 10/06/20 10:18 69 15 153/67 H 98 10/06/20 10:03 67 14 142/68 H 97 10/06/20 09:46 71 16 141/69 H 96 10/06/20 09:30 73 17 160/79 H 98 Medical Necessity - Tobacco Use Smoking Status: Never smoker Tobacco Use: Non-smoker Assessment/Plan All Active Problems Biliary obstruction requiring placement (Resolved) Vertigo (Acute) Diplopia (Acute) Cephalgia (Acute) 1. Vertigo versus CVA/subdural hematoma -Symptoms are completely resolved today, denies headache -MRI was negative for stroke however it did show a right cerebellar 3 mm subdural hematoma. This was new from the brain CT -We will consult teleneurology and discontinue her aspirin and Lovenox. She is asymptomatic from this and did not have any trauma. The MRIs of her head and neck were unremarkable, she will likely need be monitored for another 12 to [address] of the brain in the morning and if that is unchanged can be discharged home 2. Gram-negative luis bacteremia secondary to biliary stent placement -She had biliary stent placed on 09/20/2020 and then had gone to the hospital because she was not feeling well at [place], and was found to have a gram- negative luis bacteremia and started on ciprofloxacin. Which will be continued. -We will continue on Cipro here as well on discharge 3. HTN/HLD -Blood pressure is stable, will continue to monitor closely secondary to her subdural hematoma -Her hyperlipidemia and hypertension are both diet controlled, and she is active walks about 3 miles a day -We will discontinue her aspirin and Lovenox secondary to the head bleed and will monitor -LDL is 115 given her age would recommend continuing Lipitor on discharge 4. Hypothyroidism -Stable -Continue with Synthroid DVT: SCDs Inpatient E&M: 80008 Subs Hosp L2
--- NOTE | 2020-10-06 16:41 | CASEMGMT ---
Introduced role of CM to patient and ROBERTS form explained re: Observation status for treatment of vertigo. Explained hospitalization will be paid per insurance policy for outpatient billing and condition will continue to be evaluated for inpt necessity. Also provided pt with contact information for [facility] if questions arise. Discussed pharmacy section and self-administered medication guideline. Pt verbalizes understanding and does not have further questions. Form signed and placed in chart, copy to patient. Priyank Mosley RN CM
--- NOTE | 2020-10-06 17:04 | CASEMGMT ---
Addendum entered and electronically signed by Verna Mosley RN 10/07/20 08:03: [facility] is also an in-network facility. Original Note: In-network tertiary facilities in case of transfer: [facility] main and including [place] and [facility]; facilities; and [facility]. Priyank Mosley RN CM
--- NOTE | 2020-10-06 19:00 | PCS.PANDOC ---
PANDEMIC DOCUMENTATION INITIATED: Date: 10/05/20 Time: 20:38
[2020-10-07] VITALS (10 sets, daily range): BP systolic 125–154; BP diastolic 70–78; PULSE 63–84; RESP 15–17; TEMP 36.5–36.9; O2SAT 97–100
[2020-10-07] MEDS: Acetaminophen 325 MG Tablet 650 MG PO ×2 (04:59→11:59)
[2020-10-07] MEDS: Levothyroxine 25 MCG TABLET PO (05:10)
[2020-10-07] MEDS: Meclizine 12.5 MG Tablet PO ×2 (05:10→14:21)
--- NOTE | 2020-10-07 05:55 | MRI_ITS ---
STUDY: EXAMINATION - MRV BRAIN WITHOUT CONTRAST REASON FOR EXAM: Female, 80 years old. F/U ABNORMAL MRI BRAIN TECHNIQUE: 3D [id number] (TOF) imaging was performed in a 1.5 mamadou MRI scanner. COMPARISON: MRI 10/06/2020 FINDINGS: Normal flow within the superior sagittal sinus. Normal flow within the superficial cortical veins. Normal flow within the paired internal cerebral veins, vein of Jaswinder and straight sinus. Normal flow within the bilateral transverse and sigmoid sinuses. Normal flow within the bilateral jugular bulbs. MRI/MRV Head Without Contrast IMPRESSION: Normal unenhanced MRV of the brain. Electronically Signed: Roosevelt Tran MD at 13:54 EST Tel , Service support ,
[2020-10-07] MEDS: Famotidine 20 MG Tablet PO (10:18)
[2020-10-07] MEDS: Ciprofloxacin 500 MG Tablet PO (10:18)
[2020-10-07] MEDS: Ondansetron 4 MG/2 ML Vial IV (10:23)
[2020-10-07] MEDS: 0.9% Saline Lock 10 ML Syringe IV (10:24)
[2020-10-07] MEDS: LORazepam 2 MG/ML Syringe 0.5 MG IV (10:25)
--- NOTE | 2020-10-07 15:36 | NURSING ---
SPoke with Dr Rousseau, asked for this RN to cancel SOC consult because he was able to speak with radiologist. Called SOC and spoke with Rep who cancelled consult. Dr Rousseau plans to d/c patient today.
--- NOTE | 2020-10-07 16:20 | DCINST_ITS ---
- Discharge Diagnoses Current Active Problems: Current Active and Chronic Problems Bacteremia (Chronic) Vertigo (Acute) Diplopia (Acute) Cephalgia (Acute) HTN (hypertension) (Chronic) HLD (hyperlipidemia) (Chronic) Hypothyroidism (Chronic) You will use the following diet at home:: Regular Your food should be the consistency of: Regular Your liquids should be the consistency of: Regular/Thin Discharge Activity: Return to Normal Activity Call your doctor if you observe: Fever of 101 or Higher, Shortness of breath, Dizziness, Fainting spells, Swelling in the ankles, Chest pain, Increased palpitations (irregular heartbeat) Instructions: ED Vertigo, Unspecified Allergies/Adverse Reactions: Allergies cyclobenzaprine [From Flexeril] Adverse Reaction (Verified 10/05/20 20:17) Upset Stomach erythromycin base Adverse Reaction (Verified 10/05/20 20:17) Upset Stomach metoclopramide [From Reglan] Adverse Reaction (Verified 10/05/20 20:17) Upset Stomach naproxen Adverse Reaction (Verified 10/05/20 20:17) Upset Stomach nitrofurantoin [From Macrobid] Adverse Reaction (Verified 10/05/20 20:17) Upset Stomach Medications to take at Discharge Levothyroxine [Synthroid] 25 mcg PO DAILY 04/22/16 Estradiol 1 applicatio VAGINAL QHS 09/27/20 Lactobacillus Acidophilus [Probiotic] 1 ea PO DAILY 09/27/20 Potassium (Otc) [Potassium Otc] 2 tab PO DAILY 09/27/20 Ciprofloxacin [Cipro] 500 mg PO BID 10/05/20 Primary Care Physician: Ferny Sprague III, MD [Primary Care Provider] - Please follow up with your Primary Care Physician in: 3-5 days Test Results: Test results from this visit will be discussed in further detail at your follow- up appointment, if applicable. Please Follow Up With: Neurology
--- NOTE | 2020-10-07 16:42 | PCM.DC.SUM ---
Discharge Date and Diagnosis - Problem List Patient Problems: Active and Suspected Problems Vertigo (Acute) Diplopia (Acute) Cephalgia (Acute) Date of Admission: 10/05/20 Date of Discharge: 10/07/20 - Primary Discharge Diagnosis Acute Problems: Active Problems Vertigo (Acute) Diplopia (Acute) Cephalgia (Acute) - Secondary Discharge Diagnosis Chronic Problems: Chronic Problems Bacteremia (Chronic) HTN (hypertension) (Chronic) HLD (hyperlipidemia) (Chronic) Hypothyroidism (Chronic) Hospital Course and Treatment Imaging Results: Clinical Impression(s) from Imaging Studies Brain CT 10/05/20 18:04 IMPRESSION: Normal unenhanced CT scan of the brain. Electronically Signed: Regina Cardona MD at 19:08 EST , Service support , Chest X-Ray 10/06/20 08:10 IMPRESSION: Degenerative changes, as described above. No demonstrated acute cardiopulmonary process. Electronically Signed: Brissa Goddard, at 8:21 EST Tel , Service support , Brain MRI 10/06/20 09:00 IMPRESSION: There is a small new right subdural hematoma measuring 3 mm in maximum thickness overlying the right cerebellar hemisphere. Electronically Signed: Brissa Goddard, at 11:23 EST Tel , Service support , ADDENDUM: 10/06/20 1838 IMPRESSION: There is a small new right subdural hematoma measuring 3 mm in maximum thickness overlying the right cerebellar hemisphere. N.B. : The above information has been verbally conveyed by Brissa Goddard to Dr. Ralph MD, on 10/06/2020 18:31:46 (ET). Electronically Signed: Brissa Goddard at 11:23 EST Tel , Service support , Head MRA 10/06/20 09:00 IMPRESSION: Normal MRA of the head Electronically Signed: Brissa Goddard at 11:24 EST Tel , Service support , Neck MRA 10/06/20 09:00 IMPRESSION: Normal bilateral cervical carotid and vertebral arteries. Electronically Signed: Brissa Goddard, at 11:25 EST Tel , Service support , Brain MRI 10/07/20 05:55 IMPRESSION: Normal unenhanced MRV of the brain. Electronically Signed: Roosevelt Tran MD at 13:54 EST Tel , Service support , ADDENDUM: 10/07/20 1542 COMPARISON: MRI of the brain without contrast 10/06/2020. FINDINGS: 1. 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 2. When correlated with the MRI of the brain done yesterday, there is no evidence of magnetic susceptibility on the gradient echo sequence. This is not subdural hematoma and there are no mass effects. Etiology of meningeal thickening of the dura overlying the cerebral hemispheres is unknown at this time. Baseline MRI of the brain with intravenous contrast will be helpful for further evaluation. Echo: Interpretation Summary The estimated ejection fraction is 70 %. No evidence for diastolic dysfunction. Consults: Neurology Operations: None Procedures: None Summary of Care Provided: PEr HPI:The patient is a 80 y/o F w/ PMHx: HTN, HLD, Hypothyroidism, Recent biliary stent placement (ERCP ) with history of bacteremia with recent admission [facility], discharged on 09/20/20 with ongoing treatment with oral ciprofloxacin started 2 days prior to current presentation with the duration of treatment for approximately 10 days per discussion with her via infectious disease who presents to the [facility] ED on with history of onset suddenly this a.m. at approximately 9 AM onset of severe diffuse headache described as a constant aching with no light or sound sensitivity specifically rated at that time a 9 of 10 in severity and upon current presentation improved to 2 out of 10 now primarily focused in the posterior occiput and neck region with then onset sensation of dizziness and when she attempted to get up and ambulate onset of a spinning vertiginous sensation, not improving with associated significant nausea without emesis with no recent fevers or chills following recent evaluation and start on antibiotic therapy for bacteremia following recent biliary stent placement prompting ED evaluation. In the ED Hope Hull-Hallpike maneuver elicited nausea and dizziness when the head was turned to the left but there is no evident nystagmus with attempted Kezia maneuver with onset double vision specifically when turning head to the left. Double vision has resolved upon evaluation of patient following ED evaluation. Work-up in the ED included T 96.7, heart rate 72, BP 157/88, respiratory rate 16, 98% on room air, CBC with WBC 6.3, hemoglobin 12.1, platelet 365 with out marked shift however patient with immature increased granulocytes, MP with sodium 134, CRP 19.70, rapid antigen Covid testing negative, CT of the brain with no acute intracranial findings. Hospital Course: 1. Vertigo versus CVA/subdural hematoma -Symptoms are completely resolved today, though she did have another headache today -MRI was negative for stroke however it did show a right cerebellar 3 mm subdural hematoma. This was new from the brain CT -Telemetry neurology was consulted, and recommended a follow-up MRV of the brain since she had an atraumatic mechanism if felt that this would be able to elicit if she had a arteriovenous malformation. MRV of the brain was negative. In discussion with radiology second opinion from radiology was that she does not have a subdural hematoma but just a subdural thickening and at the otherwise MRV was normal. -I discussed these results with neurological recommendation from yesterday with the patient today. We discussed specifically that she has a continued headache but otherwise her vertigo has resolved, she did not have any blurry vision or neck pain or stiffness, or decreased mentation. She is afebrile without a leukocytosis therefore any type of meningitis is extremely unlikely. She has been on antibiotics for over a week now. I discussed with her that she will need to complete her outpatient antibiotics as well when she is discharged and follow-up with her PCP in 3 to 5 days. If she has any worsening of her symptoms, worsening headache, photophobia, neck pain or stiffness, or decreased mentation, she is to return to the hospital for further evaluation. Radiology did recommend an outpatient MRI of the brain with contrast to evaluate baseline brain scan for her dural thickening and to follow-up with neurology as an outpatient which was also discussed with her. She will follow-up with her PCP in 3 to 5 days and obtain a referral at that time. She expressed understanding of the risk and benefits of going home and would like to go home today. She [place] and would be more than willing to come back to the hospital if it was necessary. 2. Gram-negative luis bacteremia secondary to biliary stent placement -She had biliary stent placed on 09/20/2020 and then had gone to the hospital because she was not feeling well at [place], and was found to have a gram-negative luis bacteremia and started on ciprofloxacin. Which will be continued. -We will continue on Cipro here as well on discharge 3. HTN/HLD -Blood pressure is stable, will continue to monitor closely secondary to her subdural hematoma -Her hyperlipidemia and hypertension are both diet controlled, and she is active walks about 3 miles a day -We will discontinue her aspirin and Lovenox secondary to the head bleed and will monitor -LDL is 115 given her age would recommend continuing Lipitor on discharge 4. Hypothyroidism -Stable -Continue with Synthroid Patient Problems: Active and Suspected Problems Vertigo (Acute) Diplopia (Acute) Cephalgia (Acute) - Physical Exam Vitals/I&O's: Vital Signs Temp Pulse Resp BP Pulse Ox 97.8 F 73 16 133/78 H 100 10/07/20 12:55 10/07/20 16:30 10/07/20 12:55 10/07/20 12:55 10/07/20 12:55 Oxygen Delivery Method Room Air Weight: 139 lb 5.314 oz Body Mass Index (BMI) 24.7 Intake and Output for Last 24 Hours 10/05/20 10/06/20 10/07/20 23:59 23:59 23:59 Intake Total 1600 / 1720 570 / 570 Balance 1599 / 1720 570 / 570 General: Alert, Oriented x3, Cooperative, No apparent distress HEENT: Atraumatic, PERRLA, EOMI, Normocephalic Oral: Moist Mucosa Neck: Supple, No JVD Lungs: Normal air movement, No rhonchi, No wheeze, No rales, Diminished Cardiovascular: Regular rate, Regular Rhythm, Normal S1, Normal S2, No murmurs Abdomen: Soft, Non Tender, Non-Distended, No Hepato-splenomegaly Extremities: No edema, Capillary Refill Less than 3 Seconds Skin: No rashes, No breakdown Neurological: Cranial nerves II-XII grossly intact, Neuro grossly intact, Motor Exam 5/5 strength throughout, Sensory exam intact to light touch and pain, - - No nystagmus or ataxia Psych/Mental Status: Normal Affect, Appropriate Microbiology Past 72 Hours 10/05/20 18:10 Mucosa - Nose SARS-CoV-2 Antigen (Rapid) - Final Current Medications Acetaminophen (Acetaminophen 325 Mg Tablet) 650 mg PO Q6H PRN PRN PRN Reason: Pain Score 1-10/Temp > 100.7 F Last Admin: 10/07/20 11:59 Dose: 650 mg Documented by: Al Hydroxide/Mg Hydroxide (Mag Hydrox/Al Hydrox/Simeth 30 Ml Udc) 30 ml PO Q6H PRN PRN PRN Reason: Gastric Burning Albuterol Sulfate (Albuterol 2.5 Mg/3 Ml Vial.Neb.) 2.5 mg INHALATION Q2H PRN PRN PRN Reason: Dyspnea, wheezing Atorvastatin Calcium (Atorvastatin Calcium 40 Mg Tablet) 40 mg PO QHS [facility] Last Admin: 10/06/20 22:29 Dose: Not Given Documented by: Ciprofloxacin HCl (Ciprofloxacin 500 Mg Tablet) 500 mg PO BID [facility] Last Admin: 10/07/20 10:18 Dose: 500 mg Documented by: Famotidine (Famotidine 20 Mg Tablet) 20 mg PO DAILY [facility] Last Admin: 10/07/20 10:18 Dose: 20 mg Documented by: Guaifenesin (Guaifenesin 10 Ml Udc (200mg/10ml)) 20 ml PO Q4H PRN PRN PRN Reason: COUGH Hydralazine HCl (Hydralazine 20 Mg/Ml Vial) 5 mg IV Q30M PRN PRN Reason: to maintain BP goals Labetalol HCl (Labetalol (Prefilled) 20 Mg/4 Ml) 10 - 20 mg IV Q10M PRN PRN PRN Reason: to Maintain BP Goals Levothyroxine Sodium (Levothyroxine 25 Mcg Tablet) 25 mcg PO DAILY@0600 [facility] Last Admin: 10/07/20 05:10 Dose: 25 mcg Documented by: Magnesium Hydroxide (Magnesium Hydroxide 30 Ml Udc) 30 ml PO DAILY PRN PRN PRN Reason: Constipation Meclizine HCl (Meclizine 12.5 Mg Tablet) 12.5 mg PO Q8 [facility] Last Admin: 10/07/20 14:21 Dose: 12.5 mg Documented by: Melatonin (Melatonin 3 Mg Tablet) 3 mg PO QHS PRN PRN PRN Reason: INSOMNIA Nitroglycerin (Nitroglycerin (Inpatient Use) 0.4 Mg Tab.Subl) 0.4 mg SUBLINGUAL Q5M PRN PRN Reason: CARDIAC/CHEST PAIN Ondansetron HCl (Ondansetron 4 Mg/2 Ml Vial) 4 mg IV Q8H PRN PRN PRN Reason: NAUSEA/VOMITING Last Admin: 10/07/20 10:23 Dose: 4 mg Documented by: Prochlorperazine Edisylate (Prochlorperazine 10 Mg/2 Ml Vial) 5 mg IV Q4H PRN PRN PRN Reason: Breakthrough Nausea/Vomiting Last Admin: 10/06/20 01:19 Dose: 5 mg Documented by: Psyllium Hydrophilic Mucilloid (Psyllium 1 Packet) 1 packet PO DAILY PRN PRN PRN Reason: Constipation Senna/Docusate Sodium (Senna/Docusate Sodium 1 Tablet) 2 tablet PO BID PRN PRN PRN Reason: Constipation Sodium Chloride (0.9% Saline Lock 10 Ml Syringe) 10 - 40 ml IV UD PRN PRN Reason: SALINE FLUSH Last Admin: 10/07/20 10:24 Dose: 10 ml Documented by: Throat Lozenges (Benzocaine/Menthol 1 Lozenge) 1 lozenge MUCOUS MEM Q2H PRN PRN PRN Reason: SORE THROAT Discharge Activity: Return to Normal Activity Call your doctor if you observe: Fever of 101 or Higher, Shortness of breath, Dizziness, Fainting spells, Swelling in the ankles, Chest pain, Increased palpitations (irregular heartbeat) Home Medications: Medications to take at Discharge Levothyroxine [Synthroid] 25 mcg PO DAILY 04/22/16 Estradiol 1 applicatio VAGINAL QHS 09/27/20 Lactobacillus Acidophilus [Probiotic] 1 ea PO DAILY 09/27/20 Potassium (Otc) [Potassium Otc] 2 tab PO DAILY 09/27/20 Ciprofloxacin [Cipro] 500 mg PO BID 10/05/20 Primary Care Physician: Ferny Sprague III, MD [Primary Care Provider] - Please follow up with your Primary Care Physician in: 3-5 days Please Follow Up With: Neurology Patient Instructions: ED Vertigo, Unspecified Disposition: Home Minutes spent on discharge:: 35 Patient Condition:: Stable Medical Necessity - Tobacco Use Smoking Status: Never smoker Tobacco Use: Non-smoker Meaningful Use Info Meaningful Use Diagnoses (Choose all that apply): None applicable OBSV E&M: 60748 Observation care discharge
== END 2020-10-07 16:21 | disposition home or self-care (01) ==
LOC: ED 19:53 → PCU 20:08
PROVIDERS: Admitting Provider Family Medicine; Emergency Provider Emergency Medicine; PCP Family Medicine; Visit Provider Family Medicine
DX: R42 Dizziness and giddiness (principal); R51.9 Headache, unspecified; H53.2 Diplopia; Z79.899 Other long term (current) drug therapy; I10 Essential (primary) hypertension; E78.5 Hyperlipidemia, unspecified; E03.9 Hypothyroidism, unspecified; R78.81 Bacteremia; Z98.890 Other specified postprocedural states; I07.1 Rheumatic tricuspid insufficiency
CPT/HCPCS: 70450; 70544; 70547; 70551; 71045; 80048; 80053; 80061; 83036; 83735; 84439; 84443; 85025; 85652; 86140; 87426; 92610; 93306; 94762; 96361; 96374; 96375; 96376; 99218; 99284; J7030; A4216; G0378; J2405

== ENCOUNTER 2020-10-21 06:42 | Emergency (ER) | payer MEDICARE, SELFPAY ==
[2020-10-05 20:54] VITALS: BMI 24.7
[2020-10-21 06:45] VITALS: BP 166/82; PULSE 90; RESP 13; TEMP 36.7; O2SAT 98; BMI 27.1
--- NOTE | 2020-10-21 07:21 | ED.VISSUMM ---
- ER Visit Summary Date of Service: 10/21/20 Chief Complaint: Nausea, vomiting, headache History of Present Illness: The patient is a 80 F who presents with nausea, vomiting, and headache that has been constant over the past 3 days. Patient states she has some discomfort in her epigastric area. Patient describes it as a pounding. Patient states this has been constant. Patient has a pancreatic stent in place that she is scheduled to have removed next week. Patient states that this is stimulating her vagus nerve which is causing her to have the heart pounding and her blood pressure to go up. Patient states she did take her lisinopril this morning. Patient states she also took a Zofran this morning. Patient also states she took Lomotil this morning. Patient has had no relief with any of these. Physical Examination: Vital signs are stable except for slightly elevated blood pressure of 166/82. Patient is afebrile. Patient is in no acute distress. Oral mucosa is pink and moist. Neck is supple. Trachea is midline. There is no JVD. Heart was regular rate and rhythm. Lungs are clear and equal bilaterally. Abdomen is soft. Bowel sounds are normal. There is no tenderness. There is no rebound or guarding noted. Cranial nerves II through XII are intact. There are no focal motor or sensory deficits noted. Test Results: CBC and comprehensive metabolic profile were within normal limits. Lipase was normal. Urinalysis shows evidence of urinary tract infection with 25-50 white blood cells, positive nitrates, and leukocyte esterase of 500. This was unchanged from yesterday's results. Emergency Department Course and Treatment: Patient was given a dose of Ativan here. Patient is feeling better on reevaluation. Patient was given a prescription for a short-term course of Ativan. Patient was instructed to follow-up with her primary care physician in 3 to 5 days. Patient was instructed to follow-up with her stent removal as scheduled. Patient understood and was agreeable with the plan. All questions were answered. Disposition: Discharge home Impression: Nausea This note was generated with [employer] dictation software. It may contain incorrect words, spelling, and punctuation that were not noted in review of the chart prior to signing ED Disposition - Plan for ED Patient: Disposition: Home or Assisted Living Diagnosis: Nausea Instructions: ED Vomiting (Adult) Prescriptions: Lorazepam [Ativan] 0.5 mg PO TID #10 tab Prescription Printed Referrals: Ferny Sprague III, MD [Primary Care Provider] - 3-5 Days
[2020-10-21 07:29] LABS: Absolute Lymphocyte Count 1.36 X10^3/uL (0.83-4.51); Absolute Neutrophil Count 8.7 X10^3/uL (2.0-7.7); Basophil# 0.04 X10^3/uL; Basophil% 0.4 % (0-1); Eosinophil# 0.05 X10^3/uL; Eosinophils% 0.5 % (0-5); Hematocrit 38.1 % (37-47); Hemoglobin 12.4 g/dL (12.0-15.0); Lymphocyte # 1.36 X10^3/ul (4.0); Lymphocyte % 12.7 % (19-41); Mean Corp Hgb Conc 32.5 g/dL (32-36); Mean Corpuscular Hgb 29.7 pg (27.0-32.0); Mean Corpuscular Volume 91.1 fL (81-99); Monocyte# 0.51 X10^3/uL; Monocyte% 4.8 % (0-10); NRBC Flagged by Analyzer 0 % (0-5); Neutrophil # 8.65 X10^3/uL (2.7-7.7); Platelet Count 321 K/mm3 (150-450); RBC Distribution Width CV 12.8 % (11.6-14.6); RBC Distribution Width SD 41.9 fl (35.1-43.9); Red Blood Count 4.18 M/mm3 (4.2-5.4); White Blood Count 10.7 K/mm3 (4.4-11.0)
[2020-10-21] MEDS: LORazepam 2 MG/ML Syringe 0.5 MG IV (07:31)
[2020-10-21 07:37] LABS: Mucous, Urine 0 SEEN /hpf (<or=2+)
[2020-10-21 07:39] LABS: AST(SGOT) 21 U/L (15-37); Alanine Aminotransfer ALT/SGPT 28 U/L (13-56); Albumin, Serum 3.8 g/dL (3.2-5.0); Alkaline Phosphatase 103 U/L (45-117); Anion Gap 4 (5-15); BUN 11 mg/dL (7-18); BUN/Creat Ratio 14.1 RATIO (10-20); Calcium,Total 9.2 mg/dL (8.5-10.1); Chloride 105 mmol/L (98-107); Creatinine, Serum 0.78 mg/dL (0.55-1.02); EST Glomerular Filtration Rate 76 mL/min (>60); Est Glom Filt Rate - Afr Amer 92 mL/min (>60); Estimated Creatinine Clearance 36.67 ml/min; Globulin 3.8 g/dL (2.2-4.2); Glucose 116 mg/dL (74-106); Lipase 131 U/L (73-393); Potassium 3.8 mmol/L (3.5-5.1); Protein, Total 7.6 g/dL (6.4-8.2); Sodium Level 137 mmol/L (136-145)
[2020-10-21 07:45] LABS: Color, Urine Straw (Yellow); Glucose, Dipstick Normal (Normal); Ketone-Dipstick Negative (Negative); Leukocyte Esterase-Dipstick 500 /ul (Negative); Nitrite-Dipstick Positive (Negative); Occult Blood-Urine 10 /ul (Negative); Protein-Dipstick Negative (Negative); Specific Gravity, Urine 1.005 (1.002-1.030); Urine Bilirubin Dipstick Negative (Negative); Urine Clarity Clear (Clear); Urine Urobilinogen Normal (Normal)
[2020-10-21 07:52] LABS: Bacteria 1+ /hpf (None Seen); Red Blood Cells-Urine 0-5 SEEN /hpf (0-5); Squamous Epithelial Cells - UA 0-5 SEEN /hpf (5-10); White Blood Cells 25-50 SEEN /hpf (0-5)
[2020-10-21 09:02] VITALS: BP 132/76; PULSE 79; RESP 15; O2SAT 96
--- NOTE | 2020-10-21 10:47 | ED.RN ---
PT WAS DISCHARGED. WENT TO THE BR AND WAS LEANING OVER PULLING HER PANTS DOWN WHEN SHE JUST FELL OVER. STATED SHE DID NOT HAVE LOC AND GOT HER SELF UP OFF THE FLOOR. PT DOES HAVE A LAC ABOVE RIGHT UPPER EYE. VS ARE STABLE AND PT DENIES ANY OTHER INJURY. DR GAMEZ ASSESSED PT AND DERMABOND WAS USED TO CLOSE LAC. PT WAS OBSERVED AND ENSURED SHE IS STEADY ON HER FEET PRIOR TO BEING DC'D WITH HER DIL.
== END 2020-10-21 09:53 | disposition home or self-care (01) ==
PROVIDERS: Emergency Provider Emergency Medicine; PCP Family Medicine
DX: R11.2 Nausea with vomiting, unspecified (principal); I10 Essential (primary) hypertension; Z79.899 Other long term (current) drug therapy
CPT/HCPCS: 80053; 81001; 83690; 85025; 96374; 99285

== ENCOUNTER 2020-10-22 21:39 | Emergency (ER) | payer MEDICARE, SELFPAY ==
[2020-10-21 06:45] VITALS: BMI 27.1
[2020-10-22 21:40] VITALS: BP 136/71; PULSE 79; RESP 16; TEMP 36.2; O2SAT 97; BMI 25.4
--- NOTE | 2020-10-22 22:09 | ED.RN ---
PT ANXIOUS AND TEARFUL DURING TRIAGE, STATES I JUST KEEP HAVING THESE EPISODES AND NOBODY CAN FIX ME. REASSURANCE PROVIDED, PT STATED MAYBE I SHOULD JUST GO HOME SINCE MY BLOOD PRESSURE IS FINE. ENCOURAGED TO AT LEAST GO BACK TO ED ROOM AND SPEAK TO MD, COULD DECLINE TREATMENT AT ANY TIME. PT VOICED UNDERSTANDING.
--- NOTE | 2020-10-22 22:22 | CT_ITS ---
STUDY: CT FACIAL BONES WITHOUT CONTRAST REASON FOR EXAM: Female, 80 years old. FALL 10/21/20/ELEV BP/LARGE BRUISE RT ORBIT AND FRONTAL RADIATION DOSAGE (If Supplied By Facility): CTDIvol = ( 29.38 ) mGy, DLP = ( 4871.34 ) mGycm TECHNIQUE: The patient was scanned in a multi detector CT scanner. Sagittal and coronal images were reconstructed. Individualized dose optimization techniques were used for this CT. COMPARISON: None. FINDINGS: Nonspecific soft tissue swelling of the right face with bruising over the right cheek and focal 1.5 cm hematoma over the right supraorbital ridge. Normal orbital cadena and orbital contents. Normal nasal bones and anterior nasal spine. Normal facial bones. There is no demonstrated fracture. Normal visualized paranasal sinuses. CT/Sinus/Facial Bone IMPRESSION: Right facial swelling and bruising. No fractures are seen. Electronically Signed: Baltazar Cardoza MD at 23:06 EST , Service support ,
--- NOTE | 2020-10-22 22:22 | CT_ITS ---
STUDY: CT BRAIN WITHOUT CONTRAST REASON FOR EXAM: Female, 80 years old. FALL 10/21//ELEV BP/LARGE BRUISE RT ORBIT AND FRONTAL. Previous small subdural hematoma. RADIATION DOSAGE (If Supplied By Facility): CTDIvol = ( 44.99 ) mGy, DLP = ( 728.62 ) mGycm TECHNIQUE: Transaxial CT imaging of the brain was performed without administration of intravenous contrast material. Individualized dose optimization techniques were used for this CT. COMPARISON: 10/05/2020, also compared to MRI of 10/06/2020 which showed a small right subdural hematoma FINDINGS: Focal 1.5 cm scalp hematoma over the right supraorbital ridge. No fractures. As is best seen on coronal images, the patient has bilateral small subdural hygromas were not present on the CT of 10/05/2020, but can be seen beginning on the MRI of 10/06/2020. There is intermediate density fluid in these subdural bleeding that they are subacute. They are not causing significant mass effect on the underlying cerebral hemispheres. No midline shift. As example, and coronal images 24-52. No other changes or acute abnormalities. Normal size ventricles and extra-axial spaces for the patient''s age. Normal white matter tracts of the cerebral hemispheres. Normal basal ganglia and thalami. Normal brainstem. Normal cerebellum. There are no findings of an acute ischemic infarction. Normal visualized paranasal sinuses. CT/Brain/Head without Contrast IMPRESSION: Right upper facial swelling and scalp hematoma. No fractures. 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 Electronically Signed: Baltazar Cardoza MD at 23:03 EST , Service support ,
--- NOTE | 2020-10-22 22:28 | ED.DCSUM_ITS ---
- ER Visit Summary Date of Service: 10/22/20 Chief Complaint: Elevated blood pressure History of Present Illness: The patient is a 80 F presenting with elevated blood pressure. Patient states she has had blood pressure at home with systolic 170s- 190s. She was seen in the ED yesterday as well. While in the ED she was given Ativan. She states she tried to go to the bathroom, had unsteady gait and fell while in the emergency department. She denies loss of consciousness. She is not currently on anticoagulants. States she has had trouble with her vagus nerve. She is currently being worked up at [facility]. She has a biliary stent in place that is scheduled to be removed this coming Saturday. She is currently on Cipro for UTI. She denies fever. Denies chest pain or shortness of breath. She has mild nausea. She has had headache which is controlled with Tylenol and is currently mild. Denies other complaints. Physical Examination: Vitals are stable. Blood pressure 136/71. Patient is afebrile. Alert no acute distress. Pulse ox 97% on room air HEENT exam right periorbital ecchymosis and hematoma, PERRL, EOMI Neck is nontender Lungs are clear and equal bilaterally. Heart is regular rate and rhythm. Abdomen is soft nontender nondistended. Extremities are unremarkable. Skin is warm and dry. No focal neurologic deficit. Remainder of exam is unremarkable. Emergency Department Course and Treatment: CT head and facial bones was obtained and shows right upper facial swelling and scalp hematoma. No fractures. 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 Repeat BP 168/89. Patient is resting comfortably and is asymptomatic on re-evaluation. She will follow up with her primary care physician and her GI physician. She will monitor BP at home. Advised to return to the ED for worsening complaints. Disposition: Discharge home Impression: Hypertension, recent fall This note was generated with [employer] dictation software. It may contain incorrect words, spelling, and punctuation that were not noted in review of the chart prior to signing ED Disposition - Plan for ED Patient: Disposition: Home or Assisted Living Instructions: ED Facial Contusion, ED Hypertension, Established Referrals: Ferny Sprague III, MD [Primary Care Provider] -
[2020-10-22 23:05] VITALS: BP 168/89; PULSE 78; RESP 18; O2SAT 95
--- NOTE | 2020-10-22 23:47 | ED.DEP ---
ED Disposition - Plan for ED Patient: Instructions: ED Hypertension, Established, ED Facial Contusion Referrals: Ferny Sprague III, MD [Primary Care Provider] -
== END 2020-10-23 00:04 | disposition home or self-care (01) ==
LOC: ED 22:43
PROVIDERS: Emergency Provider Emergency Medicine; PCP Family Medicine
DX: I10 Essential (primary) hypertension (principal); W18.30XD Fall on same level, unspecified, subsequent encounter
CPT/HCPCS: 70450; 70486; 99282

== ENCOUNTER 2020-10-26 09:23 | Emergency (ER) | payer MEDICARE, SELFPAY ==
[2020-10-26 09:23] VITALS: BP 194/93; PULSE 85; RESP 22; TEMP 36.2; O2SAT 100; BMI 25.9
--- NOTE | 2020-10-26 09:48 | CT_ITS ---
STUDY: CT BRAIN WITHOUT CONTRAST REASON FOR EXAM: Female, 80 years old. SEVERE PERSISTENT HEADACHE AFTER FALL INJURY SATURDAY, NAUSEA. RADIATION DOSAGE (If Supplied By Facility): CTDIvol = ( 44.99 ) mGy, DLP = ( 728.62 ) mGycm TECHNIQUE: Transaxial CT imaging of the brain was performed without administration of intravenous contrast material. Individualized dose optimization techniques were used for this CT. COMPARISON: Comparison is made with prior study dated 10/22/2020. FINDINGS: Stable small scalp hematoma overlying the right supraorbital ridge. Normal calvarium. There is mild cerebral atrophy with widening of the extra-axial spaces and ventricular dilatation. Stable bilateral small subdural hygromas. I suspect a tiny residual subdural hematoma underlying the right frontal parietal bone as seen on axial image #23. This as improved as compared to prior study dated October 22 2020. Normal white matter tracts of the cerebral hemispheres. Normal basal ganglia and thalami. Normal brainstem. Normal cerebellum. There are no findings of an acute ischemic infarction. Normal visualized paranasal sinuses. CT/Brain/Head without Contrast IMPRESSION: Stable small bilateral subdural hygromas. I suspect a resolving tiny subdural hematoma overlying the right frontal parietal bone as seen on axial image #23. This has improved as compared to prior study. Stable small scalp hematoma overlying the right supraorbital ridge. Electronically Signed: Luis Toure MD at 10:43 EST , Service support ,
[2020-10-26] MEDS: Ondansetron 4 MG/2 ML Vial IV (10:13)
[2020-10-26] MEDS: Morphine 2 MG/ML Syringe IV (10:13)
[2020-10-26 10:26] LABS: Absolute Lymphocyte Count 1.28 X10^3/uL (0.83-4.51); Absolute Neutrophil Count 2.7 X10^3/uL (2.0-7.7); Basophil# 0.04 X10^3/uL; Basophil% 0.9 % (0-1); Eosinophil# 0.05 X10^3/uL; Eosinophils% 1.1 % (0-5); Hemoglobin 12.6 g/dL (12.0-15.0); Lymphocyte # 1.28 X10^3/ul (4.0); Mean Corp Hgb Conc 32.3 g/dL (32-36); Mean Corpuscular Hgb 29.2 pg (27.0-32.0); Mean Corpuscular Volume 90.3 fL (81-99); Mean Platelet Vol. 8.6 fl (6.2-12.0); Monocyte# 0.37 X10^3/uL; Monocyte% 8.4 % (0-10); NRBC Flagged by Analyzer 0 % (0-5); Neutrophil # 2.66 X10^3/uL (2.7-7.7); Neutrophil % 60.4 % (47-70); Platelet Count 289 K/mm3 (150-450); RBC Distribution Width CV 12.6 % (11.6-14.6); RBC Distribution Width SD 41.5 fl (35.1-43.9); Red Blood Count 4.32 M/mm3 (4.2-5.4); White Blood Count 4.4 K/mm3 (4.4-11.0)
[2020-10-26 10:33] LABS: Anion Gap 5 (5-15); BUN 9 mg/dL (7-18); BUN/Creat Ratio 12.1 RATIO (10-20); Calcium,Total 9.1 mg/dL (8.5-10.1); Chloride 105 mmol/L (98-107); Creatinine, Serum 0.74 mg/dL (0.55-1.02); EST Glomerular Filtration Rate 80 mL/min (>60); Est Glom Filt Rate - Afr Amer 97 mL/min (>60); Estimated Creatinine Clearance 36.67 ml/min; Glucose 100 mg/dL (74-106); Potassium 3.7 mmol/L (3.5-5.1); Sodium Level 137 mmol/L (136-145)
--- NOTE | 2020-10-26 10:51 | ED.DCSUM_ITS ---
History of Present Illness Chief Complaint: Headache Informant: Patient Onset: Weeks Context: Sudden Onset Timing: Intermittent, Waxes and wanes Quality: Pain throbbing Location: Bilateral predominantly central frontal area Current Severity: Moderate Maximum Severity: Severe Worsened by: Nothing Relieved by: Nothing Associated Symptoms: Nausea Narrative: Patient is an elderly woman who was seen the end of September for vertigo. Because she had diplopia with Kezia maneuver she was admitted to the hospital. MRI revealed bilateral frontal subdural/hygroma with subacute bleed noted. She was seen after visit that required admission for vertigo. She had a fall. CT at that time revealed revealed no apparent abnormality. Per my review patient had evidence of bilateral subdural hygromas with question of a subacute/acute bleed. MRI revealed subacute subdural with bilateral small hygromas. Patient presents today because of headache and nausea. She is taken Tylenol with no benefit. 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 She had recent removal of biliary stent. She tolerated procedure and had no complications. She denies double vision, blurred vision loss of vision. She denies ringing or ears. Denies trouble with speech or swallowing. She denies paresthesia, anesthesia medics. She denies problems with balance. Prior similar symptoms: Yes Recent Illness/Hospitalization: Yes - Read HPI - Past Medical History (1) Subdural hygroma Status: Acute (2) Vertigo Status: Acute (3) HLD (hyperlipidemia) Status: Chronic (4) HTN (hypertension) Status: Chronic (5) Hypothyroidism Status: Chronic (6) Biliary obstruction requiring placement Status: Resolved Past Medical History - Allergies and Home Meds Allergies/Adverse Reactions: Allergies cyclobenzaprine [From Flexeril] Adverse Reaction (Verified 10/22/20 21:44) Upset Stomach erythromycin base Adverse Reaction (Verified 10/22/20 21:44) Upset Stomach metoclopramide [From Reglan] Adverse Reaction (Verified 10/22/20 21:44) Upset Stomach naproxen Adverse Reaction (Verified 10/22/20 21:44) Upset Stomach nitrofurantoin [From Macrobid] Adverse Reaction (Verified 10/22/20 21:44) Upset Stomach Primary Care Physician: Ferny Sprague III, MD [Primary Care Provider] - Prior records reviewed: Yes Surgical History: cholecystectomy, - - ERCP with recent biliary stent placement, remote cholecystectomy, hysterectomy, appendectomy, pelvic floor surgery intervention. Lives: Alone Smoking Status: Never smoker Alcohol: None Drugs: None - Family History Maternal Family History: Reports: Heart Disease Paternal Family History: Reports: Heart Disease Review of Systems General: Denies: Chills, Fever, Malaise, Subjective, Sweats Eyes: Denies: Visual changes - bilaterally, Blurred Vision - bilaterally ENT: Denies: Rhinorrhea, Sore throat Cardiovascular: Denies: Chest pain, Palpitations Respiratory: Denies: Dyspnea, Cough, Dyspnea on exertion Gastrointestinal: Reports: Nausea. Denies: Abdominal pain, Vomiting, Diarrhea, Melena, Hematochezia Musculoskeletal: Denies: Myalgias, Arthralgias, Neck pain, Back pain, Swelling, Extremity Pain Skin: Denies: Rash, Wounds Neurological: Reports: Headache. Denies: Weakness, Parasthesia Psych: Denies: Depression, Anxiety Endocrine: Denies: Polyuria, Polydipsia Hematologic: Denies: Easy bruising, Easy bleeding Physical Exam Vital Signs/Narrative: Vital Signs Temp Pulse Resp BP Pulse Ox 10/26/20 09:23 97.2 F L 85 22 H 194/93 H 100 Inital Vital Signs reviewed: Yes General: Well nourished, Well developed, No Acute Distress Head: Normocephalic, Trauma - Prior trauma noted with ecchymosis and subcutaneous hematoma superior and lateral right brow Eyes: Perrl, EOMI. Negative for: Pale conjunctiva, Scleral icterus ENT: Moist mucous membranes, No rhinorrhea, TM's clear. Negative for: Sinus tenderness Neck: Supple, Nontender, No lymphadenopathy Cardiovascular: Regular rate, Regular rhythm, No murmurs, Normal S1, Normal S2 Respiratory: No distress, CTA bilaterally, Chest nontender Abdomen: Soft, Nontender, Nondistended, Normal bowel sounds Rectal: Deferred Back: Nontender, Normal Inspection Extremities: Nontender, No edema Skin: Normal color, No rash, Trauma Neurological: Alert, Oriented x3, Cranial nerves II-XII grossly intact, Normal Strength, Normal Sensation, Normal DTR Psychological: Depressed Diagnostic/Tx/Re-eval Impressions Brain CT 10/26/20 09:48 IMPRESSION: Stable small bilateral subdural hygromas. I suspect a resolving tiny subdural hematoma overlying the right frontal parietal bone as seen on axial image #23. This has improved as compared to prior study. Stable small scalp hematoma overlying the right supraorbital ridge. Electronically Signed: Luis Toure MD at 10:43 EST , Service support , 10/26/20 09:48 Brain/Head without Contrast [CT] Stat Laboratory Results 10/26/20 10/26/20 10:10 10:10 WBC 4.4 RBC 4.32 Hgb 12.6 Hct 39.0 MCV 90.3 MCH 29.2 MCHC 32.3 RDW Std Deviation 41.5 RDW Coeff of Kirit 12.6 Plt Count 289 MPV 8.6 Immature Gran % (Auto) 0.200 Neut % (Auto) 60.4 Lymph % (Auto) 29.0 [place] % (Auto) 8.4 Eos % (Auto) 1.1 Baso % (Auto) 0.9 Absolute Neuts (auto) 2.7 Absolute Lymphs (auto) 1.28 Nucleated RBC % 0 Sodium 137 Potassium 3.7 Chloride 105 Carbon Dioxide 27.0 Anion Gap 5 BUN 9 Creatinine 0.74 Estim Creat Clear Calc 36.67 Est GFR (MDRD) Af Amer 97 Est GFR (MDRD) Non-Af 80 BUN/Creatinine Ratio 12.1 Glucose 100 Calcium 9.1 - Medical Decision Making With history of subdural hygromas with subacute bleed noted earlier this month and report of nausea with worsening headache will obtain CT to evaluate for acute bleed. Patient was medicated with Zofran. CBC was obtained to assess white count and platelet count. Basic metabolic panel was obtained to assess electrolytes and renal function. CT was reviewed and agree there is bifrontal hygromas and agree with radiologist interpretation of resolving subacute subdural noted on image 23. It is my belief and professional opinion that patient's headache and nausea is due to the bifrontal hygromas with resolving subacute subdural hematoma. Since patient is elderly and has contraindication to NSAIDs and allergic do not recommend. Will treat with opiate analgesia. Patient requested a disc of her CAT scan. ED Disposition - Plan for ED Patient: Disposition: Home or Assisted Living Diagnosis: Subacute subdural hematoma, Cephalgia Instructions: ED Head Injury (Adult) Prescriptions: Lorazepam [Ativan] 0.5 mg PO TID 3 Days #10 tablet Transmission Status: Received by [facility]/pharmacy #[id number] Ondansetron [Zofran Odt] 4 mg PO Q8H PRN PRN #10 tab PRN Reason: Nausea Transmission Status: Pending to [facility]/pharmacy #[id number] Referrals: Ferny Sprague III, MD [Primary Care Provider] - 10-14 Days if not better
[2020-10-26 11:07] VITALS: BP 166/86; PULSE 74; RESP 16; O2SAT 96
--- NOTE | 2020-10-28 14:57 | ED.RN ---
Speaking to pt as patient advocate and she requested I add blood thinners and aspirin to her allergy list as an adverse reaction.
== END 2020-10-26 11:24 | disposition home or self-care (01) ==
PROVIDERS: Emergency Provider Emergency Medicine; PCP Family Medicine
DX: I62.00 Nontraumatic subdural hemorrhage, unspecified (principal); G96.08 Other cranial cerebrospinal fluid leak; E78.5 Hyperlipidemia, unspecified; I10 Essential (primary) hypertension; E03.9 Hypothyroidism, unspecified; Z79.899 Other long term (current) drug therapy
CPT/HCPCS: 70450; 80048; 85025; 96374; 96375; 99284; A4216; J2405

== ENCOUNTER 2020-12-11 09:02 | Emergency (ER) | payer MEDICARE, SELFPAY ==
[2020-12-11 09:02] VITALS: BP 164/102; PULSE 96; RESP 16; TEMP 36.6; BMI 25.4
--- NOTE | 2020-12-11 09:23 | CT_ITS ---
STUDY: CT BRAIN WITHOUT CONTRAST REASON FOR EXAM: Female, 80 years old. Pain RADIATION DOSAGE (If Supplied By Facility): CTDIvol = ( 44.99 ) mGy, DLP = ( 728.62 ) mGycm TECHNIQUE: Transaxial CT imaging of the brain was performed without administration of intravenous contrast material. Individualized dose optimization techniques were used for this CT. COMPARISON: 10/26/2020 FINDINGS: Normal soft tissue structures. Normal calvarium. Normal size ventricles and extra-axial spaces for the patient''s age. Normal white matter tracts of the cerebral hemispheres. Normal basal ganglia and thalami. Normal brainstem. Normal cerebellum. There is no intracranial hemorrhage. There are no findings of an acute ischemic infarction. Normal visualized paranasal sinuses. CT/Brain/Head without Contrast IMPRESSION: Normal unenhanced CT scan of the brain. Electronically Signed: Roosevelt Tran MD at 10:53 EST Tel , Service support ,
--- NOTE | 2020-12-11 09:29 | CT_ITS ---
STUDY: CT CERVICAL SPINE WITHOUT CONTRAST REASON FOR EXAM: Female, 80 years old. neck pain RADIATION DOSAGE (If Supplied By Facility): CTDIvol = ( 12.89 ) mGy, DLP = ( 242.28 ) mGycm TECHNIQUE: High resolution transaxial imaging was performed without contrast material. Sagittal and coronal images were reconstructed. Individualized dose optimization techniques were used for this CT. COMPARISON: None FINDINGS: Normal craniovertebral junction. There are degenerative changes of the anterior atlantoaxial articulation. Normal odontoid process. Normal cervical lordosis. Normal vertebral bodies and posterior osseous elements. C2-3: Moderate right facet hypertrophy and right uncovertebral hypertrophy produces moderate right neural foraminal stenosis. No central spinal stenosis. C3-4: Moderate left facet hypertrophy and left uncovertebral hypertrophy produces moderate left neural foraminal stenosis. No central spinal stenosis. C4-5: Mild bilobed disc osteophyte complex and bilateral uncovertebral hypertrophy produces mild spinal stenosis and mild bilateral neural foraminal stenosis. C5-6: Mild broad disc osteophyte complex produces mild spinal stenosis and mild bilateral neural foraminal stenosis. C6-7: Mild broad disc osteophyte complex and bilateral uncovertebral hypertrophy produces mild spinal stenosis and mild bilateral neural foraminal stenosis. C7-T1: Normal endplates. Normal disc height and morphology. Normal central canal and intervertebral neuroforamina. Normal visualized soft tissue structures. CT/Spine Cervical without Contras IMPRESSION: Multilevel degenerative changes, as described above. Electronically Signed: Roosevelt Tran MD at 10:57 EST Tel , Service support ,
--- NOTE | 2020-12-11 09:29 | ED.VIS.GEN ---
History of Present Illness Chief Complaint: Headache Informant: Patient Narrative: 80-year-old female presenting with headache. She states she has a history of elevated intracranial pressure. She also has history of subdural hematomas. She states currently she was told that she has a CSF leak and she is scheduled for an MRI. She sees a neurosurgeon at [facility]. She states that nothing helps her headache pain. She is not had a fever. She does complain of some posterior occipital pain and neck pain. She denies any new trauma since October. She is not lightheaded or dizzy. She has some mild intermittent nausea. Patient also states she has recurrent UTI. She is currently be treated with Keflex outpatient from her primary care doctor. 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 (3) HLD (hyperlipidemia) Status: Chronic (4) HTN (hypertension) Status: Chronic (5) Hypothyroidism Status: Chronic Past Medical History - Allergies and Home Meds Allergies/Adverse Reactions: Allergies cyclobenzaprine [From Flexeril] Adverse Reaction (Verified 12/11/20 09:42) Upset Stomach erythromycin base Adverse Reaction (Verified 12/11/20 09:42) Upset Stomach metoclopramide [From Reglan] Adverse Reaction (Verified 12/11/20 09:42) Upset Stomach naproxen Adverse Reaction (Verified 12/11/20 09:42) Upset Stomach nitrofurantoin [From Macrobid] Adverse Reaction (Verified 12/11/20 09:42) Upset Stomach No blood thinners or aspirin Adverse Reaction (Uncoded 12/11/20 09:42) Bleeding Primary Care Physician: Ferny Sprague III, MD [Primary Care Provider] - Prior records reviewed: Yes Past Medical History: - - Reviewed in problem list Surgical History: cholecystectomy, - - ERCP with recent biliary stent placement, remote cholecystectomy, hysterectomy, appendectomy, pelvic floor surgery intervention. Lives: Alone Smoking Status: Never smoker - Family History Maternal Family History: Reports: Heart Disease Paternal Family History: Reports: Heart Disease Review of Systems General: Denies: Chills, Fever, Sweats Eyes: Denies: Visual changes - bilaterally, Diplopia ENT: Denies: Rhinorrhea, Sore throat Cardiovascular: Denies: Chest pain, Palpitations Respiratory: Denies: Dyspnea, Cough, Dyspnea on exertion Gastrointestinal: Reports: Nausea. Denies: Abdominal pain, Vomiting Genitourinary: Reports: Dysuria. Denies: Hematuria Musculoskeletal: Reports: Neck pain. Denies: Back pain, Extremity Pain Skin: Denies: Rash, Wounds Neurological: Reports: Headache. Denies: Weakness, Parasthesia, Numbness Psych: Denies: Depression, Anxiety Endocrine: Denies: Polyuria, Polydipsia Physical Exam Vital Signs/Narrative: Vital Signs Temp Pulse Resp BP 12/11/20 09:02 97.9 F 96 16 164/102 H Inital Vital Signs reviewed: Yes General: Well nourished, No Acute Distress Head: Normocephalic, Atraumatic Eyes: Perrl, EOMI ENT: Moist mucous membranes, Sinus tenderness Cardiovascular: Regular rate, Regular rhythm Respiratory: No distress, CTA bilaterally Extremities: Nontender, No edema Skin: Normal color, No rash Neurological: Alert, Oriented x3, Cranial nerves II-XII grossly intact Psychological: Normal affect, Normal Mood Diagnostic/Tx/Re-eval Clinical Impression(s) from Imaging Studies Brain CT 12/11/20 09:23 IMPRESSION: Normal unenhanced CT scan of the brain. Electronically Signed: Roosevelt Tran MD at 10:53 EST Tel , Service support , Cervical Spine CT 12/11/20 09:29 IMPRESSION: Multilevel degenerative changes, as described above. Electronically Signed: Roosevelt Tran MD at 10:57 EST Tel , Service support , Laboratory Data 12/11/20 12/11/20 12/11/20 09:35 09:35 10:25 WBC 5.4 RBC 4.72 Hgb 14.2 Hct 41.9 MCV 88.8 MCH 30.1 MCHC 33.9 RDW Std Deviation 39.3 RDW Coeff of Kirit 12.1 Plt Count 293 MPV 8.7 Immature Gran % (Auto) 0.600 Neut % (Auto) 59.2 Lymph % (Auto) 30.3 [place] % (Auto) 8.4 Eos % (Auto) 0.6 Baso % (Auto) 0.9 Absolute Neuts (auto) 3.2 Absolute Lymphs (auto) 1.62 Nucleated RBC % 0 Sodium 134 L Potassium 3.8 Chloride 97 L Carbon Dioxide 27.0 Anion Gap 10 BUN 8 Creatinine 0.74 Estim Creat Clear Calc 36.67 Est GFR (MDRD) Af Amer 98 Est GFR (MDRD) Non-Af 81 BUN/Creatinine Ratio 10.8 Glucose 118 H Calcium 9.2 Total Bilirubin 0.50 AST 15 ALT 18 Alkaline Phosphatase 92 Total Protein 7.6 Albumin 4.0 Globulin 3.6 Albumin/Globulin Ratio 1.1 Urine Color Yellow Urine Clarity Clear Urine pH 7.0 Ur Specific Bascom 1.005 Urine Protein Negative Urine Glucose (UA) Normal Urine Ketones Negative Urine Occult Blood 10 H Urine Nitrite Negative Urine Bilirubin Negative Urine Urobilinogen Normal Ur Leukocyte Esterase Negative Urine RBC 0-5 SEEN Urine WBC 0 SEEN Ur Squamous Epith Cells 0 SEEN Urine Bacteria 0 SEEN Urine Mucus 0 SEEN - Medical Decision Making Patient presenting with headache which she has had fairly chronically. She has history of brain bleed as well as well. Patient had CT of the brain and cervical spine given her pain and these were both negative for acute findings. Patient refused migraine cocktail. She did not want any opioids for pain. She already takes caffeine at home outpatient. In review of the medical record it looks as if she has an MRI scheduled as well as a follow-up appointment on the . After further discussion patient does not want to be transferred to [facility] and states that she will go home and follow-up as an outpatient. She is given return precautions. Impression: 1. Headache ED Disposition - Plan for ED Patient: Disposition: Home or Assisted Living Instructions: ED Headache Unspecified Referrals: Ferny Sprague III, MD [Primary Care Provider] -
[2020-12-11] MEDS: Ondansetron 4 MG/2 ML Vial IV (09:42)
[2020-12-11 09:47] LABS: Absolute Lymphocyte Count 1.62 X10^3/uL (0.83-4.51); Absolute Neutrophil Count 3.2 X10^3/uL (2.0-7.7); Basophil# 0.05 X10^3/uL; Basophil% 0.9 % (0-1); Eosinophil# 0.03 X10^3/uL; Eosinophils% 0.6 % (0-5); Hematocrit 41.9 % (37-47); Hemoglobin 14.2 g/dL (12.0-15.0); Lymphocyte # 1.62 X10^3/ul (4.0); Lymphocyte % 30.3 % (19-41); Mean Corp Hgb Conc 33.9 g/dL (32-36); Mean Corpuscular Hgb 30.1 pg (27.0-32.0); Mean Corpuscular Volume 88.8 fL (81-99); Mean Platelet Vol. 8.7 fl (6.2-12.0); Monocyte# 0.45 X10^3/uL; Monocyte% 8.4 % (0-10); NRBC Flagged by Analyzer 0 % (0-5); Neutrophil # 3.17 X10^3/uL (2.7-7.7); Neutrophil % 59.2 % (47-70); Platelet Count 293 K/mm3 (150-450); RBC Distribution Width CV 12.1 % (11.6-14.6); RBC Distribution Width SD 39.3 fl (35.1-43.9); Red Blood Count 4.72 M/mm3 (4.2-5.4); White Blood Count 5.4 K/mm3 (4.4-11.0)
[2020-12-11 10:10] LABS: ALB/GLOB Ratio 1.1 RATIO (0.9-2.4); AST(SGOT) 15 U/L (15-37); Alanine Aminotransfer ALT/SGPT 18 U/L (13-56); Alkaline Phosphatase 92 U/L (45-117); Anion Gap 10 (5-15); BUN 8 mg/dL (7-18); BUN/Creat Ratio 10.8 RATIO (10-20); Calcium,Total 9.2 mg/dL (8.5-10.1); Chloride 97 mmol/L (98-107); Creatinine, Serum 0.74 mg/dL (0.55-1.02); EST Glomerular Filtration Rate 81 mL/min (>60); Est Glom Filt Rate - Afr Amer 98 mL/min (>60); Estimated Creatinine Clearance 36.67 ml/min; Globulin 3.6 g/dL (2.2-4.2); Glucose 118 mg/dL (74-106); Potassium 3.8 mmol/L (3.5-5.1); Protein, Total 7.6 g/dL (6.4-8.2); Sodium Level 134 mmol/L (136-145)
[2020-12-11 10:29] LABS: Bacteria 0 SEEN /hpf (None Seen); Mucous, Urine 0 SEEN /hpf (<or=2+); Squamous Epithelial Cells - UA 0 SEEN /hpf (5-10); White Blood Cells 0 SEEN /hpf (0-5)
[2020-12-11 10:33] LABS: Color, Urine Yellow (Yellow); Glucose, Dipstick Normal (Normal); Ketone-Dipstick Negative (Negative); Leukocyte Esterase-Dipstick Negative /ul (Negative); Nitrite-Dipstick Negative (Negative); Occult Blood-Urine 10 /ul (Negative); Protein-Dipstick Negative (Negative); Specific Gravity, Urine 1.005 (1.002-1.030); Urine Bilirubin Dipstick Negative (Negative); Urine Clarity Clear (Clear); Urine Urobilinogen Normal (Normal)
[2020-12-11 10:39] VITALS: BP 149/81; PULSE 73; RESP 16; O2SAT 100
[2020-12-11 10:47] LABS: Red Blood Cells-Urine 0-5 SEEN /hpf (0-5)
== END 2020-12-11 11:59 | disposition home or self-care (01) ==
PROVIDERS: Emergency Provider Student in an Organized Health Care Education/Training Program; PCP Family Medicine
DX: R51.9 Headache, unspecified (principal); N39.0 Urinary tract infection, site not specified; E78.5 Hyperlipidemia, unspecified; I10 Essential (primary) hypertension; E03.9 Hypothyroidism, unspecified; Z79.2 Long term (current) use of antibiotics; Z79.899 Other long term (current) drug therapy
CPT/HCPCS: 70450; 72125; 80053; 81001; 85025; 87086; 96374; 99284; A4216; J2405

== ENCOUNTER 2021-01-25 11:50 | Emergency (ER) | payer MEDICARE, SELFPAY ==
[2021-01-25 11:54] VITALS: BP 182/84; PULSE 84; PULSE 86; RESP 16; TEMP 36.8; O2SAT 98; O2SAT 99; BMI 25.5
[2021-01-25 11:58] VITALS: BP 184/82; PULSE 82; RESP 14; TEMP 36.8; O2SAT 96
--- NOTE | 2021-01-25 12:26 | EKG12_ITS ---
Test Reason : Blood Pressure : / mmHG Vent. Rate : 074 BPM Atrial Rate : 074 BPM P-R Int : 160 ms QRS Dur : 088 ms QT Int : 380 ms P-R-T Axes : 071 047 073 degrees QTc Int : 421 ms Normal sinus rhythm Normal ECG Confirmed by TAMEKA MORRISSEY, CHRIS ([id number]), news copy editor MALKA SORENSON ([id number]) on 01/27/2021 8:11:32 AM Referred By: Confirmed By:SUSAN ENGLISH MD
[2021-01-25 13:17] LABS: Bacteria 0 SEEN /hpf (None Seen); Color, Urine Yellow (Yellow); Glucose, Dipstick Normal (Normal); Ketone-Dipstick Negative (Negative); Leukocyte Esterase-Dipstick Negative /ul (Negative); Mucous, Urine 0 SEEN /hpf (<or=2+); Nitrite-Dipstick Positive (Negative); Occult Blood-Urine Negative /ul (Negative); Protein-Dipstick Negative (Negative); Red Blood Cells-Urine 0 SEEN /hpf (0-5); Specific Gravity, Urine 1.005 (1.002-1.030); Squamous Epithelial Cells - UA 0 SEEN /hpf (5-10); Urine Bilirubin Dipstick Negative (Negative); Urine Clarity Clear (Clear); Urine Urobilinogen Normal (Normal); White Blood Cells 0 SEEN /hpf (0-5)
[2021-01-25 13:18] LABS: Absolute Lymphocyte Count 1.86 X10^3/uL (0.83-4.51); Absolute Neutrophil Count 3.3 X10^3/uL (2.0-7.7); Basophil# 0.06 X10^3/uL; Eosinophil# 0.04 X10^3/uL; Eosinophils% 0.7 % (0-5); Hematocrit 42.4 % (37-47); Hemoglobin 13.9 g/dL (12.0-15.0); Lymphocyte # 1.86 X10^3/ul (0.83-4.51); Lymphocyte % 31.8 % (19-41); Mean Corp Hgb Conc 32.8 g/dL (32-36); Mean Corpuscular Volume 88.5 fL (81-99); Mean Platelet Vol. 8.4 fl (6.2-12.0); Monocyte# 0.59 X10^3/uL; Monocyte% 10.1 % (0-10); NRBC Flagged by Analyzer 0 % (0-5); Neutrophil # 3.28 X10^3/uL (2.7-7.7); Neutrophil % 56.2 % (47-70); Platelet Count 358 K/mm3 (150-450); RBC Distribution Width SD 38.9 fl (35.1-43.9); Red Blood Count 4.79 M/mm3 (4.2-5.4); White Blood Count 5.8 K/mm3 (4.4-11.0)
[2021-01-25 13:35] LABS: AST(SGOT) 14 U/L (15-37); Alanine Aminotransfer ALT/SGPT 20 U/L (13-56); Alkaline Phosphatase 89 U/L (45-117); Anion Gap 4 (5-15); BUN 8 mg/dL (7-18); BUN/Creat Ratio 10.6 RATIO (10-20); Calcium,Total 9.3 mg/dL (8.5-10.1); Chloride 100 mmol/L (98-107); Creatinine, Serum 0.75 mg/dL (0.55-1.02); EST Glomerular Filtration Rate 79 mL/min (>60); Est Glom Filt Rate - Afr Amer 96 mL/min (>60); Estimated Creatinine Clearance 36.67 ml/min; Globulin 3.9 g/dL (2.2-4.2); Glucose 103 mg/dL (74-106); Potassium 3.8 mmol/L (3.5-5.1); Protein, Total 7.9 g/dL (6.4-8.2); Sodium Level 133 mmol/L (136-145)
[2021-01-25 13:47] LABS: Lactic Acid 1.4 mmol/L (0.4-1.9)
--- NOTE | 2021-01-25 14:07 | ED.DEP ---
ED Disposition - Plan for ED Patient: Instructions: ED Bladder Infection, Female (Adult) Prescriptions: Cephalexin [Keflex] 500 mg PO Q6 #40 capsule Prescription Printed Referrals: Ferny Sprague III, MD [Primary Care Provider] -
--- NOTE | 2021-01-25 14:17 | ED.DCSUM_ITS ---
- ER Visit Summary Date of Service: 01/25/21 Chief Complaint: Concern for UTI History of Present Illness: The patient is a 80 F presenting to the ED due to concern of UTI. Patient finished a course of Keflex on Saturday for urinary tract infection. She states she started to have dysuria, urgency, urinary frequency again. She is concerned that her UTI may be returning. She complains of low back pain which has been ongoing for several weeks. She states she had CSF leak in multiples areas treated with a blood patch in December 2020. She was advised to lay flat for 8 weeks. She has been compliant with this. She states her back pain is no worse than usual. She denies fever. Denies numbness or weakness. Denies other complaints. Physical Examination: Vitals are stable. Patient is afebrile. Alert no acute distress. HEENT exam is unremarkable. Neck is supple. Lungs are clear and equal bilaterally. Heart is regular rate and rhythm. Abdomen is soft nontender nondistended. No guarding or rebound Back: Nontender Extremities are unremarkable. Skin is warm and dry. No focal neurologic deficit. Normal strength and sensation Remainder of exam is unremarkable. Emergency Department Course and Treatment: Patient was given IV fluids. CBC, chemistries unremarkable. Urinalysis shows positive nitrite, 0 white blood cell, 0 red blood cells. Troponin is negative. Lactic acid is normal. Urine culture was sent. Covid is negative. Patient declined chest x-ray. She is resting comfortably on reevaluation. She states her urinary tract symptoms are returning and she does have positive nitrites in her urine. She will be restart ed on Keflex pending her urine culture results. She has multiple allergies. She was given Tylenol. She declined further pain medication. She will follow- up with her primary care physician. She is advised return to ED for worsening complaints. Disposition: Discharge home Impression: Dysuria This note was generated with [employer] dictation software. It may contain incorrect words, spelling, and punctuation that were not noted in review of the chart prior to signing ED Disposition - Plan for ED Patient: Instructions: ED Bladder Infection, Female (Adult) Prescriptions: Cephalexin [Keflex] 500 mg PO Q6 #40 capsule Prescription Printed Referrals: Ferny Sprague III, MD [Primary Care Provider] -
[2021-01-25] MEDS: Cephalexin 250 MG Capsule 500 MG PO (14:23)
[2021-01-25] MEDS: Acetaminophen 500 MG Tablet 1000 MG PO (14:23)
== END 2021-01-25 14:40 | disposition home or self-care (01) ==
LOC: ED 12:31
PROVIDERS: Emergency Provider Emergency Medicine; PCP Family Medicine
DX: R30.0 Dysuria (principal); I10 Essential (primary) hypertension; Z79.899 Other long term (current) drug therapy
CPT/HCPCS: 80053; 81001; 83605; 84484; 85025; 87040; 87086; 87426; 93005; 96360; 99285; J7040; A4216

== ENCOUNTER 2021-03-02 04:13 | Emergency (ER) | payer MEDICARE, SELFPAY ==
[2021-03-02 04:14] VITALS: BP 164/90; PULSE 88; RESP 16; TEMP 36.6; O2SAT 100; BMI 26.2
--- NOTE | 2021-03-02 04:43 | ED.VIS.BACK ---
HPI History of Present Illness Chief Complaint: Back Narrative Narrative: Stated that she has had back pain for last 2-1/2 weeks. Located in her left lower back. She stated a week ago she had an outpatient MRI done at [facility]. She stated that she is going to need a nerve block on this area. She followed up and went to a chiropractor yesterday who adjusted her. It seems to have not helped her pain and has flooded her this morning with nausea. She woke up this morning with severe nausea. She has not vomited. She stated that this is happened in the past when she has a dural leak. She stated in December she had a blood patch done on a dural leak between her cervical and thoracic spine. She stated she had this type of nausea at that time. She thinks she might have caused a new dural leak in her lower lumbar spine as flooding her with nausea or she has exacerbated her current dural leak. [facility] Medical History Brain bleed Spinal cord injury Home Medications levothyroxine 25 mcg PO DAILY 04/22/16 [History Last Taken Unknown] Lactobacillus acidophilus 1 ea PO DAILY 09/27/20 [History Last Taken Unknown] estradiol 1 applicatio VAGINAL QHS 09/27/20 [History Last Taken Unknown] lisinopril 10 mg PO DAILY 10/21/20 [History Last Taken Unknown] cephalexin 500 mg PO Q6 #40 capsule 01/25/21 [Rx Last Taken Unknown] lorazepam 0.5 mg PO BID PRN 03/02/21 [History Last Taken Unknown] methocarbamol 500 mg PO TID 03/02/21 [History Last Taken Unknown] ondansetron HCl [Zofran] 4 mg PO Q6H PRN PRN 03/02/21 [History Last Taken Unknown] promethazine 12.5 mg PO Q6H PRN PRN 03/02/21 [History Last Taken Unknown] Allergy/AdvReac Type Severity Reaction Status Date / Time cyclobenzaprine AdvReac Upset Verified 03/02/21 04:18 [From Flexeril] Stomach erythromycin base AdvReac Upset Verified 03/02/21 04:18 Stomach metoclopramide [From Reglan] AdvReac Upset Verified 03/02/21 04:18 Stomach naproxen AdvReac Upset Verified 03/02/21 04:18 Stomach nitrofurantoin AdvReac Upset Verified 03/02/21 04:18 [From Macrobid] Stomach No blood thinners or aspirin AdvReac Bleeding Uncoded 03/02/21 04:18 Surgical History H/O: hysterectomy History of bladder suspension procedure Hx of cholecystectomy Social History Smoking Status: Never smoker ROS ROS ED ROS Narrative ROS General: Denies fever, chills, sweats Eyes: Denies visual changes, blurred vision, double vision ENT: Denies ear pain, rhinorrhea, sore throat Cardiovascular: Denies chest pain, palpitations, heart racing Respiratory: Denies dyspnea, cough, sputum, dyspnea on exertion, orthopnea,PND GI: See HPI : Denies dysuria, hematuria, frequency Musculoskeletal: See HPI Skin: Denies rash, abscess, abrasions Neuro: Denies headache, weakness, paresthesia Psych: Denies depression, anxiety Endo: Denies polyuria, polydipsia, polyphagia Heme: Denies easy bruising, easy bleeding, lymphadenopathy Allergy: Denies hives, swelling EXAM Physical Exam Narrative Exam Narrative: Vital signs reviewed General: Well-nourished well-developed Head: Normocephalic atraumatic Eyes: Pupils equal round and reactive to light extraocular movements intact ENT: TMs clear no hemotympanum no trauma Neck: Nontender full range of motion Cardiovascular: Regular rate rhythm no murmurs normal S1-S2 Respiratory: No distress clear to auscultation bilaterally chest nontender Abdomen: Soft nontender nondistended normal bowel sounds no masses Back: Tender to palpation left lower lumbar where it meets the iliac crest of the pelvis. It is para midline. No swelling or deformity. Decreased range of motion secondary to pain. Extremities: Nontender active range of motion ?4 extremities no trauma Skin: Normal color no trauma Neuro alert oriented cranial nerves II through XII intact normal strength sensation reflexes Const Vital Signs: 03/02/21 04:14 Temperature 97.9 F Temperature Source Oral Pulse Rate 88 Respiratory Rate 16 Blood Pressure 164/90 H Blood Pressure Mean 114 Pulse Ox 100 MDM MDM Lab Data Labs: Laboratory Results - last 24 hr 03/02/21 03/02/21 04:45 04:45 WBC 5.9 RBC 4.09 L Hgb 12.3 Hct 36.9 L MCV 90.2 MCH 30.1 MCHC 33.3 RDW Std Deviation 40.2 RDW Coeff of Kirit 12.2 Plt Count 324 MPV 7.8 Immature Gran % (Auto) 0.500 Neut % (Auto) 50.5 Lymph % (Auto) 37.6 [place] % (Auto) 9.2 Eos % (Auto) 1.7 Baso % (Auto) 0.5 Absolute Neuts (auto) 3.0 Absolute Lymphs (auto) 2.20 Nucleated RBC % 0 Sodium 133 L Potassium 3.9 Chloride 98 Carbon Dioxide 29.0 Anion Gap 6 BUN 8 Creatinine 0.77 Estim Creat Clear Calc 36.67 Est GFR (MDRD) Af Amer 93 Est GFR (MDRD) Non-Af 77 BUN/Creatinine Ratio 10.4 Glucose 112 H Calcium 9.0 Radiography Diagnostic Testing: Patient given IV fluids and Zofran for nausea. Lab work obtained. She has no loss of bowel or bladder function. Work unremarkable including CBC and BMP. Given second dose of nausea medicine felt better after dose of morphine for her backache she then requested Tylenol 3 as this seems to help. Patient will undergo an MRI with contrast to rule out dural leak and acute abnormality. This will be signed out to the oncoming physician for final disposition Discharge Plan Triage Chief Complaint: Back ED Provider: George Ritter Dx/Rx/DC Orders Prescriptions: No Action levothyroxine 25 MCG tablet 25 mcg PO DAILY RF: 0 estradiol 42.5 GM cream 1 applicatio VAGINAL QHS RF: 0 Lactobacillus acidophilus 1 EACH capsule 1 ea PO DAILY RF: 0 lisinopril 5 MG tablet 10 mg PO DAILY RF: 0 cephalexin 500 MG capsule 500 mg PO Q6 Qty: 40 RF: 0 methocarbamol 500 mg Tablet 500 mg PO TID RF: 0 ondansetron HCl [Zofran] 4 mg tablet 4 mg PO Q6H PRN PRN (Reason: Nausea) RF: 0 lorazepam 0.5 mg tablet 0.5 mg PO BID PRN (Reason: Anxiety) RF: 0 promethazine 25 mg tablet 12.5 mg PO Q6H PRN PRN (Reason: Nausea) RF: 0 Primary Care Provider: Adi Berry
[2021-03-02] MEDS: Ondansetron 4 MG/2 ML Vial IV ×2 (04:45→06:01)
[2021-03-02 04:53] LABS: Basophil# 0.03 X10^3/uL; Basophil% 0.5 % (0-1); Eosinophils% 1.7 % (0-5); Hematocrit 36.9 % (37-47); Hemoglobin 12.3 g/dL (12.0-15.0); Lymphocyte % 37.6 % (19-41); Mean Corp Hgb Conc 33.3 g/dL (32-36); Mean Corpuscular Hgb 30.1 pg (27.0-32.0); Mean Corpuscular Volume 90.2 fL (81-99); Mean Platelet Vol. 7.8 fl (6.2-12.0); Monocyte# 0.54 X10^3/uL; Monocyte% 9.2 % (0-10); NRBC Flagged by Analyzer 0 % (0-5); Neutrophil # 2.95 X10^3/uL (2.7-7.7); Neutrophil % 50.5 % (47-70); Platelet Count 324 K/mm3 (150-450); RBC Distribution Width CV 12.2 % (11.6-14.6); RBC Distribution Width SD 40.2 fl (35.1-43.9); Red Blood Count 4.09 M/mm3 (4.2-5.4); White Blood Count 5.9 K/mm3 (4.4-11.0)
[2021-03-02] MEDS: Morphine 4 MG/ML Syringe IV (04:54)
[2021-03-02 05:09] LABS: Anion Gap 6 (5-15); BUN 8 mg/dL (7-18); BUN/Creat Ratio 10.4 RATIO (10-20); Chloride 98 mmol/L (98-107); Creatinine, Serum 0.77 mg/dL (0.55-1.02); EST Glomerular Filtration Rate 77 mL/min (>60); Est Glom Filt Rate - Afr Amer 93 mL/min (>60); Estimated Creatinine Clearance 36.67 ml/min; Glucose 112 mg/dL (74-106); Potassium 3.9 mmol/L (3.5-5.1); Sodium Level 133 mmol/L (136-145)
--- NOTE | 2021-03-02 05:15 | MRI_ITS ---
STUDY: MRI LUMBAR SPINE WITHOUT CONTRAST REASON FOR EXAM: Female, 80 years old. Low back pain. TECHNIQUE: Standardized fat and water weighted pulse sequences were obtained in the sagittal and axial planes. COMPARISON: None FINDINGS: Normal lumbar lordosis. There is no substantial scoliosis. Normal conus medullaris that terminates at the L1 L1-2: There is minimal disc space narrowing and endplate spondylosis. There is no significant disc herniation, central canal or foraminal stenosis. Mild facet arthropathy L2-3: There is minimal disc space narrowing and endplate spondylosis. There is no significant disc herniation, central canal or foraminal stenosis. Mild facet arthropathy L3-4: There is mild disc space narrowing and endplates spondylosis. Mild disc bulge and facet arthropathy with severe central canal stenosis. Mild right and mild left foraminal stenosis. There is minimal anterolisthesis. L4-5: There is mild disc space narrowing and endplates spondylosis. Severe facet arthropathy with grade 1 anterolisthesis and disc bulge and severe central canal stenosis. Mild right and mild left foraminal stenosis. L5-S1: There is moderate disc space narrowing and endplates spondylosis. Mild disc osteophyte and facet arthropathy with mild central canal stenosis. Mild right and mild left foraminal stenosis. Normal visualized sacral ala. MRI/Spine Lumbar (Routine) IMPRESSION: L3/L4: Severe central canal stenosis. L4/L5: Severe facet arthropathy. Grade 1 anterolisthesis. Electronically Signed: Anya Collazo MD at 8:55 EDT Tel , Service support ,
[2021-03-02] MEDS: 0.9% Normal Saline 1,000 ML 250 ML IV (05:43)
[2021-03-02 08:00] VITALS: BP 162/74; PULSE 76; RESP 18; O2SAT 96
--- NOTE | 2021-03-02 08:57 | ED.RN ---
PT TAKES HER MORNING LISINOPRIL OF [address] VAUGHAN
[2021-03-02 10:35] VITALS: BP 134/79; PULSE 74; RESP 18; O2SAT 99
--- NOTE | 2021-03-02 10:37 | ED.RN ---
THIS NURSE REVIEWED D/C INSTRUCTIONS WITH PT. PT VERBALIZED UNDERSTANDING OF INSTRUCTIONS. IV D/C. PT DENIES FURTHER NEEDS OR QUESTIONS AT THIS TIME. PT AMBULATES FROM ROOM ON OWN WITHOUT ASSISTANCE FROM STAFF
== END 2021-03-02 10:38 | disposition home or self-care (01) ==
PROVIDERS: Emergency Provider Emergency Medicine; PCP Family Medicine
DX: M48.061 Spinal stenosis, lumbar region without neurogenic claudication (principal)
CPT/HCPCS: 72148; 80048; 85025; 96361; 96374; 96375; 96376; 99285; J7030; A4216; J2405

== ENCOUNTER 2021-03-07 02:08 | Emergency (ER) | payer MEDICARE, SELFPAY ==
[2021-03-07 02:10] VITALS: BP 177/88; PULSE 81; RESP 18; TEMP 36.4; O2SAT 97; BMI 25.2
[2021-03-07] MEDS: Ondansetron ODT 4 MG Tablet PO (02:30)
[2021-03-07] MEDS: Acetaminophen/Codeine #3 Tablet 1 TABLET PO (02:30)
[2021-03-07 03:14] VITALS: BP 172/89; PULSE 89; RESP 16; O2SAT 99
--- NOTE | 2021-03-07 06:02 | EX.ED.DYSGE1 ---
HPI History of Present Illness Chief Complaint: Headache Informant: patient and family Narrative Narrative: 80-year-old female presenting by EMS with headache and nausea. She tells me that she has spontaneous spinal fluid leakage from her dura. She states that this started in October and December she had a blood patch done through the [facility]. She states that she has been told to lie flat since December by her doctors. She states that she was supposed to go last week for another blood patch but because she was having such pain in her back they did not do it and advised her to get the pain under control with pain management. However she has not gotten with pain management and she has not gotten back any response from her increase from her doctors. So pino she called EMS to bring her to the hospital because she would like to go to [facility]. Patient is able to sit up and walk around. She was in the emergency room several days ago had low back pain and believe that she had spinal fluid leaking out of the lumbar area. She had a lumbar MRI that was negative. Tonmario she now tells me that they MRI the wrong area that this should have MRI her thoracic or her cervical spine. [facility] Medical History Brain bleed Spinal cord injury Home Medications levothyroxine 25 mcg PO DAILY 04/22/16 [History Last Taken Unknown] Lactobacillus acidophilus 1 ea PO DAILY 09/27/20 [History Last Taken Unknown] estradiol 1 applicatio VAGINAL QHS 09/27/20 [History Last Taken Unknown] lisinopril 10 mg PO DAILY 10/21/20 [History Last Taken Unknown] cephalexin 500 mg PO Q6 #40 capsule 01/25/21 [Rx Last Taken Unknown] acetaminophen-codeine 1 tab PO Q6H PRN #12 tab 03/02/21 [Rx Last Taken Unknown] lorazepam 0.5 mg PO BID PRN 03/02/21 [History Last Taken Unknown] methocarbamol 500 mg PO TID 03/02/21 [History Last Taken Unknown] ondansetron 4 mg PO Q8H PRN PRN #10 tab 03/02/21 [Rx Last Taken Unknown] ondansetron HCl [Zofran] 4 mg PO Q6H PRN PRN 03/02/21 [History Last Taken Unknown] promethazine 12.5 mg PO Q6H PRN PRN 03/02/21 [History Last Taken Unknown] Allergy/AdvReac Type Severity Reaction Status Date / Time cyclobenzaprine AdvReac Upset Verified 03/07/21 02:12 [From Flexeril] Stomach erythromycin base AdvReac Upset Verified 03/07/21 02:12 Stomach metoclopramide [From Reglan] AdvReac Upset Verified 03/07/21 02:12 Stomach naproxen AdvReac Upset Verified 03/07/21 02:12 Stomach nitrofurantoin AdvReac Upset Verified 03/07/21 02:12 [From Macrobid] Stomach No blood thinners or aspirin AdvReac Bleeding Uncoded 03/07/21 02:12 Surgical History H/O: hysterectomy History of bladder suspension procedure Hx of cholecystectomy Social History (Updated 03/07/21 @ 06:[address] Bon Mariano DO) Smoking Status: Never smoker substance use type: does not use ROS ROS ED Constitutional Constitutional ED: Denies chills or weight loss Eyes Eyes: Denies change in vision or diplopia ENT ENT ED: Denies ear pain, rhinorrhea or sore throat Cardiovascular Cardiovascular: Denies chest pain, orthopnea, palpitations or racing heartbeat Respiratory/Chest Respiratory/Chest: Denies cough, dyspnea or orthopnea Gastrointestinal Gastrointestinal: Reports nausea; Denies abdominal pain, diarrhea or vomiting Genitourinary Genitourinary ED: Denies dysuria, hematuria or urinary frequency Musculoskeletal Musculoskeletal: Reports back pain; Denies arthralgias or myalgias Integumentary Denies abscess or rash Neurologic Neurologic: Reports headache(s); Denies weakness Psychiatric Psychiatric: Denies anxiety, depression, suicidal ideation or suicidal thoughts Endocrine Endocrinology: Denies polydipsia, polyphagia or polyuria Allergic/Immunologic Allergic/Immunologic ED: Denies mouth swelling, tongue swelling or urticaria EXAM Physical Exam Const Vital Signs: 03/07/21 02:10 03/07/21 03:14 Temperature 97.6 F L Temperature Source Oral Pulse Rate 81 89 Respiratory Rate 18 16 Blood Pressure 177/88 H 172/89 H Blood Pressure Mean 117 Pulse Ox 97 99 Oxygen Delivery Method Room Air Positive well nourished and well developed General Appearance ED: well developed HEENT Reports normocephalic, head/scalp atraumatic and moist mucous membranes Eyes PERRL and EOMs intact bilaterally Neck no lymphadenopathy, supple and no JVD Resp normal respiratory effort and clear to auscultation bilaterally Cardio regular rate, regular rhythm and no murmurs GI normal to inspection, nondistended, normoactive bowel sounds and non-tender Palpation: soft Back/Spine no CVA tenderness and normal ROM Extremity normal to inspection General Extremety ED: Negative for edema General Extremity: Negative for edema Neuro oriented x3 and CN's II-XII intact bilaterally Sensorium / Orientation: alert Motor Exam: strength 5/5 throughout Psych Psych Narrative: Patient's psychiatric exam is very labile. One moment she is crying and anxious the next moment she is smiling and searching through her back. Mood & Affect: depressed, anxious and tearful Skin no rashes or lesions noted and no wounds MDM MDM MDM Narrative Medical decision making narrative: Patient story is quite odd. Her exam is not consistent with a spinal headache. I informed the patient that I would need to get some information from the [facility] as to exactly what is going on because the way she is telling me this is not medically makes sense. Informed her that this may take a while but if I can piece it together I can certainly call the [facility] and speak with one of their excepting doctors to see if we can transfer her. I asked her why she would come to the emergency department here in [place] if she gets all of her care at another facility. She states she has no way to get there. She begins crying and tells me that she is all alone. I asked how she would get to her appointments in [place] normally and she tells me that she would have a friend or her son-in-law. Patient asked me for some Tylenol with codeine and Zofran. I gave her this. She then apparently called her son-in-law requesting that he come get her and take her to [place]. Before her son-in-law went to the room I spoke with him in private. I have voiced concerns that the patient may be clinically depressed with significant anxiety disorder. He stated he would agree with this. Her about 6 years ago. He states that for the past couple days when he spoke with her she was inquiring about the cost of a helicopter ride from [place] to [place] and about an ambulance cost from [place] to [place]. He states that her daughters informed her that she did not need to emergently go there that she should wait and speak with her doctors today. She is actually supposed to have an appointment with one of her doctors today. Patient is choosing to leave the emergency department and go to [place]. I called [facility] to speak with their attending emergency physician. I did not want this to give the appearance that I was forcing her to leave here and go there to start EMTALA. [place] also informed the son in law the same thing. It is their choice to leave but I informed him I was more than willing to work through her chart and see if we could transfer her that way. Discharge Plan Triage Chief Complaint: Headache ED Provider: Bon Mariano Dx/Rx/DC Orders Clinical Impression: Headache Instructions: ED Headache Unspecified Prescriptions: No Action levothyroxine 25 MCG tablet 25 mcg PO DAILY RF: 0 estradiol 42.5 GM cream 1 applicatio VAGINAL QHS RF: 0 Lactobacillus acidophilus 1 EACH capsule 1 ea PO DAILY RF: 0 lisinopril 5 MG tablet 10 mg PO DAILY RF: 0 cephalexin 500 MG capsule 500 mg PO Q6 Qty: 40 RF: 0 methocarbamol 500 mg Tablet 500 mg PO TID RF: 0 ondansetron HCl [Zofran] 4 mg tablet 4 mg PO Q6H PRN PRN (Reason: Nausea) RF: 0 lorazepam 0.5 mg tablet 0.5 mg PO BID PRN (Reason: Anxiety) RF: 0 promethazine 25 mg tablet 12.5 mg PO Q6H PRN PRN (Reason: Nausea) RF: 0 ondansetron 4 mg tablet,disintegrating 4 mg PO Q8H PRN PRN (Reason: Nausea) Qty: 10 RF: 0 acetaminophen-codeine 300-15 mg tablet 1 tab PO Q6H PRN (Reason: pain) Qty: 12 RF: 0 Primary Care Provider: Adi Berry Referrals: Adi Berry MD [Primary Care Provider] - As Needed Disposition Disposition: Home, self care Discharge Date/Time: 03/07/21 03:15
== END 2021-03-07 03:15 | disposition home or self-care (01) ==
PROVIDERS: Emergency Provider Emergency Medicine; PCP Family Medicine
DX: R51.9 Headache, unspecified (principal)
CPT/HCPCS: 99285

== ENCOUNTER 2021-04-01 14:18 | Inpatient (IN) | payer MEDICARE, SELFPAY ==
[2021-04-01 14:19] VITALS: BP 156/78; PULSE 96; RESP 14; TEMP 36.4; O2SAT 97; BMI 23.8
--- NOTE | 2021-04-01 15:05 | EKG12_ITS ---
Test Reason : Blood Pressure : / mmHG Vent. Rate : 084 BPM Atrial Rate : 084 BPM P-R Int : 144 ms QRS Dur : 084 ms QT Int : 350 ms P-R-T Axes : 074 048 069 degrees QTc Int : 413 ms Normal sinus rhythm Normal ECG Confirmed by HAI MORRISSEY, RANI ([id number]), scientific editor MALKA SORENSON ([id number]) on 04/04/2021 8:49:49 AM Referred By: CL Confirmed By:RANI VALLES MD
--- NOTE | 2021-04-01 15:05 | CT_ITS ---
STUDY: CT BRAIN WITHOUT CONTRAST REASON FOR EXAM: Female, 80 years old. Change in Mental Status RADIATION DOSAGE (If Supplied By Facility): CTDIvol = ( 44.99 ) mGy, DLP = ( 745.49 ) mGycm TECHNIQUE: Transaxial CT imaging of the brain was performed without administration of intravenous contrast material. Individualized dose optimization techniques were used for this CT. COMPARISON: 12/11/2020 FINDINGS: Normal soft tissue structures. Normal calvarium. Normal size ventricles and extra-axial spaces for the patient''s age. Normal white matter tracts of the cerebral hemispheres. Normal basal ganglia and thalami. Normal brainstem. Normal cerebellum. There is no intracranial hemorrhage. There are no findings of an acute ischemic infarction. Normal visualized paranasal sinuses. CT/Brain/Head without Contrast IMPRESSION: No acute intracranial hemorrhage or mass effect. Electronically Signed: Kurtis Montana MD ([place]) at 16:04 EDT , Service support ,
--- NOTE | 2021-04-01 15:06 | EDS_ITS ---
HPI History of Present Illness Chief Complaint: Mental Health Narrative Narrative: 80-year-old female presents with concern for visual hallucinations. Presents with her friend who brought her in as a request of her children who live out of state. States over the past 2 weeks she has been seeing people in her home including [place]. Patient also concerned that she has a urinary tract infection. Took an at home test which stated that she had an infection but denies any dysuria or fever. Denies any head injury. Patient states that she does have a history of dural leaks and that she has been getting a headache just from walking to the mailbox. Denies any vision change, neck pain, fever, chills, nausea, vomiting, chest pain, shortness of breath. [facility] Medical History (Updated 04/01/21 @ 16:57 by Leo BREEN) Brain bleed Spinal cord injury Home Medications levothyroxine 25 mcg PO DAILY 04/22/16 [History Last Taken Unknown] estradiol 1 applicatio VAGINAL QHS 09/27/20 [History Last Taken Unknown] lisinopril 10 mg PO DAILY 10/21/20 [History Last Taken Unknown] ondansetron HCl [Zofran] 4 mg PO Q6H PRN PRN 03/02/21 [History Last Taken Unk nown] buspirone 15 mg BID 04/01/21 [History Last Taken Unknown] dexlansoprazole [Dexilant] 60 mg PO DAILY 04/01/21 [History Last Taken Unknown] pantoprazole 40 mg PO BID 04/01/21 [History Last Taken Unknown] sucralfate 1 mg TID 04/01/21 [History Last Taken Unknown] Allergy/AdvReac Type Severity Reaction Status Date / Time cephalexin [From Keflex] Allergy NEEDS Verified 04/01/21 14:24 FOLLOW-UP ciprofloxacin [From Cipro] AdvReac NEEDS Verified 04/01/21 14:24 FOLLOW-UP cyclobenzaprine AdvReac Upset Verified 03/07/21 02:12 [From Flexeril] Stomach erythromycin base AdvReac Upset Verified 03/07/21 02:12 Stomach metoclopramide [From Reglan] AdvReac Upset Verified 03/07/21 02:12 Stomach naproxen AdvReac Upset Verified 03/07/21 02:12 Stomach nitrofurantoin AdvReac Upset Verified 03/07/21 02:12 [From Macrobid] Stomach No blood thinners or aspirin AdvReac Bleeding Uncoded 03/07/21 02:12 Surgical History H/O: hysterectomy History of bladder suspension procedure Hx of cholecystectomy Social History Smoking Status: Never smoker substance use type: does not use ROS ROS ED Constitutional Constitutional ED: Denies chills, fever(s) or sweats Eyes Eyes: Denies blurry vision, change in vision or diplopia ENT ENT ED: Denies rhinorrhea or sore throat Cardiovascular Cardiovascular: Denies chest pain, orthopnea, palpitations or racing heartbeat Respiratory/Chest Respiratory/Chest: Denies cough, dyspnea, dyspnea on exertion, orthopnea or sputum Gastrointestinal Gastrointestinal: Denies abdominal pain, constipation, diarrhea, melena, nausea or vomiting Genitourinary Genitourinary ED: Denies dysuria, hematuria or urinary frequency Musculoskeletal Musculoskeletal: Denies arthralgias, myalgias or neck pain Integumentary Denies rash Neurologic Neurologic: Denies headache(s), paresthesias or weakness Psychiatric Psychiatric: Reports other Details: Visual hallucinations ; Denies anxiety or depression Hematologic/Lymphatic Hematologic/Lymphatic: Denies easy bleeding or easy bruising Allergic/Immunologic Allergic/Immunologic ED: Denies mouth swelling or tongue swelling EXAM Physical Exam Const Vital Signs: 04/01/21 14:19 Temperature 97.5 F L Temperature Source Temporal Pulse Rate 96 Respiratory Rate 14 Blood Pressure 156/78 H Blood Pressure Mean 104 Pulse Ox 97 Oxygen Delivery Method Room Air Positive well nourished and well developed General Appearance ED: well developed HEENT Reports TM's clear and moist mucous membranes normocephalic and atraumatic Tympanic Membrane ED: Yes TM's clear Eyes PERRL and EOMs intact bilaterally Neck no lymphadenopathy, supple and no JVD Chest Wall inspection of chest normal Resp normal respiratory effort and clear to auscultation bilaterally Cardio regular rate, S1 normal heart sound, S2 normal heart sound and no murmurs Peripheral Pulses: pulses 2+ throughout GI soft to palpation, non-tender and non-distended Back/Spine no CVA tenderness and no thoracic nor lumbar tenderness Extremity normal to inspection General Extremety ED: Negative for edema or tenderness General Extremity: Negative for edema Neuro oriented x3, CN's II-XII intact bilaterally and no sensory deficits noted Sensorium / Orientation: alert Motor Exam: strength 5/5 throughout Psych mental status grossly normal Skin no rashes or lesions noted MDM MDM MDM Narrative Medical decision making narrative: Patient appears well and nontoxic. Vital signs within normal limits. Evidence of urinary tract infection. Sent for culture. CT brain negative. Patient given Rocephin. Admitted to the hospital for UTI with encephalopathy. Stable at time of admission. Lab Data Attestation: I reviewed the patient's lab results. Labs: Laboratory Results - last 24 hr 04/01/21 04/01/21 04/01/21 15:12 15:12 15:20 WBC 6.3 RBC 3.97 L Hgb 12.1 Hct 35.5 L MCV 89.4 MCH 30.5 MCHC 34.1 RDW Std Deviation 39.8 RDW Coeff of Kirit 12.2 Plt Count 361 MPV 8.2 Immature Gran % (Auto) 0.500 Neut % (Auto) 64.6 Lymph % (Auto) 23.8 [place] % (Auto) 10.3 H Eos % (Auto) 0.3 Baso % (Auto) 0.5 Absolute Neuts (auto) 4.1 Absolute Lymphs (auto) 1.50 Nucleated RBC % 0 Sodium Potassium Chloride Carbon Dioxide Anion Gap BUN Creatinine Estim Creat Clear Calc Est GFR (MDRD) Af Amer Est GFR (MDRD) Non-Af BUN/Creatinine Ratio Glucose Calcium Urine Color Straw Urine Clarity Cloudy Urine pH 7.0 Ur Specific [place] 1.010 Urine Protein Negative Urine Glucose (UA) Normal Urine Ketones 5 H Urine Occult Blood 25 H Urine Nitrite Negative Urine Bilirubin Negative Urine Urobilinogen Normal Ur Leukocyte Esterase 500 H Urine RBC 0-5 SEEN Urine WBC >100 SEEN Ur Squamous Epith Cells 0 SEEN Urine Bacteria 1+ Urine Mucus 0 SEEN Urine Opiates Screen NEGATIVE Urine Methadone Screen NEGATIVE Ur Barbiturates Screen NEGATIVE Ur Phencyclidine Scrn NEGATIVE Ur Amphetamines Screen NEGATIVE U Methamphetamin-MDMA NEGATIVE U Benzodiazepines Scrn NEGATIVE Urine Cocaine Screen NEGATIVE U Cannabinoids Screen NEGATIVE Ur Drug Screen Comment Ethyl Alcohol 04/01/21 04/01/21 15:20 15:20 WBC RBC Hgb Hct MCV MCH MCHC RDW Std Deviation RDW Coeff of Kirit Plt Count MPV Immature Gran % (Auto) Neut % (Auto) Lymph % (Auto) [place] % (Auto) Eos % (Auto) Baso % (Auto) Absolute Neuts (auto) Absolute Lymphs (auto) Nucleated RBC % Sodium 128 L Potassium 4.1 Chloride 93 L Carbon Dioxide 27.0 Anion Gap 8 BUN 7 Creatinine 0.73 Estim Creat Clear Calc 36.67 Est GFR (MDRD) Af Amer 100 Est GFR (MDRD) Non-Af 82 BUN/Creatinine Ratio 9.6 L Glucose 115 H Calcium 9.1 Urine Color Urine Clarity Urine pH Ur Specific [place] Urine Protein Urine Glucose (UA) Urine Ketones Urine Occult Blood Urine Nitrite Urine Bilirubin Urine Urobilinogen Ur Leukocyte Esterase Urine RBC Urine WBC Ur Squamous Epith Cells Urine Bacteria Urine Mucus Urine Opiates Screen Urine Methadone Screen Ur Barbiturates Screen Ur Phencyclidine Scrn Ur Amphetamines Screen U Methamphetamin-MDMA U Benzodiazepines Scrn Urine Cocaine Screen U Cannabinoids Screen Ur Drug Screen Comment Ethyl Alcohol < 3.0 Radiography Diagnostic Testing: Radiology Impression Brain CT 04/01/21 15:05 IMPRESSION: No acute intracranial hemorrhage or mass effect. Electronically Signed: Kurtis Montana MD ([place]) at 16:04 EDT , Service support , Rhythm Strip Rhythm Strip: Sinus Rhythm Rate: 84 Ectopy: None EKG Initial EKG: Attestation: I personally reviewed and interpreted this EKG as follows: Interpretation: Sinus Rhythm Comments: Normal sinus rhythm at 84 bpm. W[place] interval 144 ms. QTC of 413 ms. No evidence of acute ischemia at this time. Discharge Plan Triage Chief Complaint: Mental Health ED Provider: Finesse Mccain Dx/Rx/DC Orders Clinical Impression: Acute UTI, Encephalopathy Primary Care Provider: Adi Berry Disposition Disposition: Acute Care Hospital [facility]
[2021-04-01] MEDS: Ondansetron ODT 4 MG Tablet PO (15:35)
[2021-04-01 15:42] LABS: Amphetamine Urine VISTA NEGATIVE (<1000 ng/mL); Barbiturate Urine VISTA NEGATIVE (< 200 ng/mL); Benzodiazepine Urine VISTA NEGATIVE (< 200 ng/mL); Cocaine Urine VISTA NEGATIVE (< 300 ng/mL); Ecstacy Urine VISTA NEGATIVE (< 500 ng/mL); Methadone Urine VISTA NEGATIVE (< 300 ng/mL); PCP Urine VISTA NEGATIVE (< 25 ng/mL); THC Urine VISTA NEGATIVE (< 50 ng/mL); Vista UDS pH Range 7
[2021-04-01 15:51] LABS: Mucous, Urine 0 SEEN /hpf (<or=2+); Squamous Epithelial Cells - UA 0 SEEN /hpf (5-10)
[2021-04-01 15:51] LABS: Absolute Neutrophil Count 4.1 X10^3/uL (2.0-7.7); Basophil# 0.03 X10^3/uL; Basophil% 0.5 % (0-1); Eosinophil# 0.02 X10^3/uL; Eosinophils% 0.3 % (0-5); Hematocrit 35.5 % (37-47); Hemoglobin 12.1 g/dL (12.0-15.0); Lymphocyte % 23.8 % (19-41); Mean Corp Hgb Conc 34.1 g/dL (32-36); Mean Corpuscular Hgb 30.5 pg (27.0-32.0); Mean Corpuscular Volume 89.4 fL (81-99); Mean Platelet Vol. 8.2 fl (6.2-12.0); Monocyte# 0.65 X10^3/uL; Monocyte% 10.3 % (0-10); NRBC Flagged by Analyzer 0 % (0-5); Neutrophil # 4.07 X10^3/uL (2.7-7.7); Neutrophil % 64.6 % (47-70); Platelet Count 361 K/mm3 (150-450); RBC Distribution Width CV 12.2 % (11.6-14.6); RBC Distribution Width SD 39.8 fl (35.1-43.9); Red Blood Count 3.97 M/mm3 (4.2-5.4); White Blood Count 6.3 K/mm3 (4.4-11.0)
[2021-04-01 15:53] LABS: Color, Urine Straw (Yellow); Glucose, Dipstick Normal (Normal); Ketone-Dipstick 5 mg/dl (Negative); Leukocyte Esterase-Dipstick 500 /ul (Negative); Nitrite-Dipstick Negative (Negative); Occult Blood-Urine 25 /ul (Negative); Protein-Dipstick Negative (Negative); Urine Bilirubin Dipstick Negative (Negative); Urine Clarity Cloudy (Clear); Urine Urobilinogen Normal (Normal)
[2021-04-01 16:00] LABS: Anion Gap 8 (5-15); BUN 7 mg/dL (7-18); BUN/Creat Ratio 9.6 RATIO (10-20); Calcium,Total 9.1 mg/dL (8.5-10.1); Chloride 93 mmol/L (98-107); Creatinine, Serum 0.73 mg/dL (0.55-1.02); EST Glomerular Filtration Rate 82 mL/min (>60); Est Glom Filt Rate - Afr Amer 100 mL/min (>60); Estimated Creatinine Clearance 36.67 ml/min; Glucose 115 mg/dL (74-106); Potassium 4.1 mmol/L (3.5-5.1); Sodium Level 128 mmol/L (136-145)
[2021-04-01 16:01] LABS: Bacteria 1+ /hpf (None Seen)
[2021-04-01 16:02] LABS: Red Blood Cells-Urine 0-5 SEEN /hpf (0-5); White Blood Cells >100 SEEN /hpf (0-5)
[2021-04-01 16:04] LABS: Alcohol, Blood (Medical)-Serum < 3.0 mg/dL
--- NOTE | 2021-04-01 16:41 | HP.PCM.HOS_ITS ---
Documented by User: Leo BREEN 04/01/21 17:07 HPI - General General Date of Admission: 04/01/21 HPI Narrative Patient is a 80-year-old female presents the ED at [facility] on 04/01 at 2020 with a chief complaint of hallucinations x3 days. Patient reports that for the past 3 days she has been experiencing visual hallucinations at her house that range from seeing Bismark Ortez with a small child in her bedroom to most recently seeing demons last night. Patient only reports visual hallucinations and does not report that these hallucinations are trying to command her to do anything. Patient denies any recent illness or having any sic k contacts. Of note, patient has been acutely depressed as she has been bedridden since December 2020 due to a cerebral spinal fluid leak, which she is having managed by the [facility]. Patient endorses a 14 pound unintentional weight loss in the past 3 months, which she relates to being bedridden and not eating much. Patient denies any chest pain, shortness of breath, palpitations, hemoptysis, sputum production, fever, chills, N/V/D. Past medical history is significant for GERD, hypothyroidism and high blood pressure. Patient denies any psychiatric history, however is on buspirone. Past surgical history is significant for hysterectomy, cholecystectomy and insertion of a bladder mesh. Patient denies any tobacco or alcohol use. Patient denies any illicit or prescription drug abuse. Patient reports that she is not vaccinated for COVID-19, however has been quarantining in her home and only going to medical appointments. Blood pressure is elevated ranging from 180/92 currently 156/78. Otherwise, vital signs stable and patient is afebrile. Brain CT obtained in the ED demonstrates no acute intracranial hemorrhage or mass-effect and is otherwise unremarkable. CBC is unremarkable. BMP demonstrates hyponatremia with a sodium of 128. UA demonstrates cloudy urine with positive ketones and occult blood, 500 leukocyte esterase and 1+ urine bacteria. Urine tox screen is negative. Ethyl alcohol less than 3.0. Patient was initiated on Bactrim and Zofran in the ED. [facility] Medical History (Updated 04/01/21 @ 16:57 by Leo BREEN) Brain bleed Spinal cord injury Home Medications levothyroxine 25 mcg PO DAILY 04/22/16 [History Last Taken Unknown] estradiol 1 applicatio VAGINAL QHS 09/27/20 [History Last Taken Unknown] lisinopril 10 mg PO DAILY 10/21/20 [History Last Taken Unknown] ondansetron HCl [Zofran] 4 mg PO Q6H PRN PRN 03/02/21 [History Last Taken Unkno wn] buspirone 15 mg BID 04/01/21 [History Last Taken Unknown] dexlansoprazole [Dexilant] 60 mg PO DAILY 04/01/21 [History Last Taken Unknown] pantoprazole 40 mg PO BID 04/01/21 [History Last Taken Unknown] sucralfate 1 mg TID 04/01/21 [History Last Taken Unknown] Allergy/AdvReac Type Severity Reaction Status Date / Time cephalexin [From Keflex] Allergy NEEDS Verified 04/01/21 14:24 FOLLOW-UP ciprofloxacin [From Cipro] AdvReac NEEDS Verified 04/01/21 14:24 FOLLOW-UP cyclobenzaprine AdvReac Upset Verified 03/07/21 02:12 [From Flexeril] Stomach erythromycin base AdvReac Upset Verified 03/07/21 02:12 Stomach metoclopramide [From Reglan] AdvReac Upset Verified 03/07/21 02:12 Stomach naproxen AdvReac Upset Verified 03/07/21 02:12 Stomach nitrofurantoin AdvReac Upset Verified 03/07/21 02:12 [From Macrobid] Stomach No blood thinners or aspirin AdvReac Bleeding Uncoded 03/07/21 02:12 Surgical History H/O: hysterectomy History of bladder suspension procedure Hx of cholecystectomy Social History Smoking Status: Never smoker substance use type: does not use ROS Constitutional Constitutional: Reports change in weight; Denies anorexia, chills, fatigue, fever(s), malaise, night sweats, weakness or other Eyes Eyes: Denies blurry vision, change in eye color, change in vision, discharge from eye(s), double vision, erythema, eye pain, loss of vision or other ENT HEENT: Denies abnormal hearing, dysphagia, ear pain, epistaxis, headache(s), hearing loss, nasal congestion, nasal discharge, post nasal drip, sinus pressure, sore throat or other Cardiovascular Cardiovascular: Denies chest pain, claudication, dyspnea on exertion, edema, lightheadedness, orthopnea, palpitations, paroxysmal nocturnal dyspnea, rapid heart rate, syncope or other Respiratory/Chest Respiratory/Chest: Denies cough, dyspnea, excessive phlegm production, hemoptysis, productive cough, shortness of breath at rest, shortness of breath with exertion, wheezing or other Gastrointestinal Gastrointestinal: Denies abdominal pain, coffee ground emesis, constipation, diarrhea, dyspepsia, hematemesis, hematochezia, loose stools, melena, nausea, vomiting or other Genitourinary Genitourinary: Reports other Details: Denies any urinary symptoms however reports that a home urinalysis test told her she had a UTI. ; Denies burning urination, difficulty urinating, dysuria, hematuria, nocturia, urinary frequency, urinary hesitancy, urinary incontinence or urinary urgency Musculoskeletal Musculoskeletal: Reports arthralgias and back pain; Denies joint pain, joint stiffness, joint swelling, myalgias, neck pain or other Neurologic Neurologic: Denies abnormal gait, abnormal speech, confusion, disequilibrium, dizziness, focal weakness, headache(s), numbness, paresthesias, seizure-like activity, seizures, syncope, tingling, tremor(s) or other Psychiatric Psychiatric: Denies anxiety, depression, homicidal ideation, suicidal ideation or other Endocrine Endocrinology: Denies change in body appearance, cold intolerance, excessive sweating, heat intolerance, polydipsia, polyuria or other Hematologic/Lymphatic Hematologic/Lymphatic: Denies anemia, easy bleeding, easy bruising, lymphadenopathy or other Allergic/Immunologic Allergic/Immunologic: Denies rhinitis, hives, eczemia, asthma or other Vital Signs Vital Signs Vital Signs: 04/01/21 14:19 Temperature 97.5 F L Temperature Source Temporal Pulse Rate 96 Respiratory Rate 14 Blood Pressure 156/78 H Blood Pressure Mean 104 Pulse Ox 97 Oxygen Delivery Method Room Air Weight Weight: 130 lb 4.691 oz Body Mass Index (BMI) 23.8 Physical Exam Const alert and oriented x3 General Appearance: cooperative HEENT normocephalic, head/scalp atraumatic and hearing grossly normal bilaterally Eyes EOMs intact bilaterally and conjunctivae normal Neck no lymphadenopathy, supple and no JVD Resp normal respiratory effort, no retractions, no use of accessory muscles and clear to auscultation bilaterally Cardio regular rate, regular rhythm, no murmurs and no JVD GI normal to inspection, nondistended, normoactive bowel sounds, soft to palpation and non-tender Extremity normal to inspection, full ROM and no clubbing, cyanosis or edema Skin no rashes or lesions noted, no wounds, skin turgor normal and no jaundice Neuro CN's II-XII intact bilaterally Psych affect normal Results Lab / Micro Data Result Diagrams: 04/01/21 15:20 04/01/21 15:20 Labs: Laboratory Results - last 24 hr 04/01/21 04/01/21 04/01/21 15:12 15:12 15:20 WBC 6.3 RBC 3.97 L Hgb 12.1 Hct 35.5 L MCV 89.4 MCH 30.5 MCHC 34.1 RDW Std Deviation 39.8 RDW Coeff of Kirit 12.2 Plt Count 361 MPV 8.2 Immature Gran % (Auto) 0.500 Neut % (Auto) 64.6 Lymph % (Auto) 23.8 [place] % (Auto) 10.3 H Eos % (Auto) 0.3 Baso % (Auto) 0.5 Absolute Neuts (auto) 4.1 Absolute Lymphs (auto) 1.50 Nucleated RBC % 0 Sodium Potassium Chloride Carbon Dioxide Anion Gap BUN Creatinine Estim Creat Clear Calc Est GFR (MDRD) Af Amer Est GFR (MDRD) Non-Af BUN/Creatinine Ratio Glucose Calcium Urine Color Straw Urine Clarity Cloudy Urine pH 7.0 Ur Specific [place] 1.010 Urine Protein Negative Urine Glucose (UA) Normal Urine Ketones 5 H Urine Occult Blood 25 H Urine Nitrite Negative Urine Bilirubin Negative Urine Urobilinogen Normal Ur Leukocyte Esterase 500 H Urine RBC 0-5 SEEN Urine WBC >100 SEEN Ur Squamous Epith Cells 0 SEEN Urine Bacteria 1+ Urine Mucus 0 SEEN Urine Opiates Screen NEGATIVE Urine Methadone Screen NEGATIVE Ur Barbiturates Screen NEGATIVE Ur Phencyclidine Scrn NEGATIVE Ur Amphetamines Screen NEGATIVE U Methamphetamin-MDMA NEGATIVE U Benzodiazepines Scrn NEGATIVE Urine Cocaine Screen NEGATIVE U Cannabinoids Screen NEGATIVE Ur Drug Screen Comment Ethyl Alcohol 04/01/21 04/01/21 15:20 15:20 WBC RBC Hgb Hct MCV MCH MCHC RDW Std Deviation RDW Coeff of Kirit Plt Count MPV Immature Gran % (Auto) Neut % (Auto) Lymph % (Auto) [place] % (Auto) Eos % (Auto) Baso % (Auto) Absolute Neuts (auto) Absolute Lymphs (auto) Nucleated RBC % Sodium 128 L Potassium 4.1 Chloride 93 L Carbon Dioxide 27.0 Anion Gap 8 BUN 7 Creatinine 0.73 Estim Creat Clear Calc 36.67 Est GFR (MDRD) Af Amer 100 Est GFR (MDRD) Non-Af 82 BUN/Creatinine Ratio 9.6 L Glucose 115 H Calcium 9.1 Urine Color Urine Clarity Urine pH Ur Specific [place] Urine Protein Urine Glucose (UA) Urine Ketones Urine Occult Blood Urine Nitrite Urine Bilirubin Urine Urobilinogen Ur Leukocyte Esterase Urine RBC Urine WBC Ur Squamous Epith Cells Urine Bacteria Urine Mucus Urine Opiates Screen Urine Methadone Screen Ur Barbiturates Screen Ur Phencyclidine Scrn Ur Amphetamines Screen U Methamphetamin-MDMA U Benzodiazepines Scrn Urine Cocaine Screen U Cannabinoids Screen Ur Drug Screen Comment Ethyl Alcohol < 3.0 Rhythm Strip Rhythm Strip: Sinus Rhythm Rate: 84 Ectopy: None Radiology Impression Brain CT 04/01/21 15:05 IMPRESSION: No acute intracranial hemorrhage or mass effect. Electronically Signed: Kurtis Montana MD (Bro[place]) at 16:04 EDT , Service support , Assessment & Plan Assessment/Plan (1) Acute encephalopathy: (2) Acute cystitis: (3) Spinal stenosis: (4) HTN (hypertension): QUALIFIERS: Hypertension type: essential hypertension Qualified Code(s): I10 - Essential (primary) hypertension (5) HLD (hyperlipidemia): QUALIFIERS: Hyperlipidemia type: unspecified Qualified Code(s): E78.5 - Hyperlipidemia, unspecified (6) Hypothyroidism: QUALIFIERS: Hypothyroidism type: unspecified Qualified Code(s): E03.9 - Hypothyroidism, unspecified (7) Spinal cord injury: (8) Anxiety: PLAN: Patient is a 80-year-old female who presents to the ED at [facility] on 03/2021 with a chief complaint of visual hallucinations x3 days. Patient will be admitted for acute encephalopathy secondary to UTI. 1) Acute encephalopathy secondary to UTI. Patient reports a 3-day history of having visual hallucinations. Brain CT unremarkable. Overall mild infectious presentation. UA demonstrates cloudy urine, positive ketones and occult blood, 500 leukocyte esterase and 1+ bacteria. Patient does not meet SIRS criteria. CBC unremarkable. Vital signs are slightly hypertensive, otherwise are stable and patient is afebrile. Urine tox screen negative. Ethyl alcohol less than 3.0. Plan; admit to [facility] 3, urine cultures ordered and pending, CBC and BMP in a.m, magnesium ordered, procalcitonin ordered and TSH ordered, initiate ceftriaxone, Zofran as needed, Compazine as needed, Tylenol as needed, PT/OT eval ordered. 2) Hypertension Hypertensive on the ED, currently 156/78, not within goal. Plan; TSH ordered, continue lisinopril, hydralazine as needed. 3) hypothyroidism Plan; continue levothyroxine, TSH ordered. 4) anxiety Patient denies any psychiatric history, however takes buspirone. Plan; continue buspirone. 5) hyponatremia Currently 128. Plan; IV fluids ordered, monitor BMP. 6) GERD Continue Protonix, continue sulcal fate, continue Dexilant. DVT prophylaxis -Lovenox CODE STATUS: DNRCC-A, no intubation Patient seen by Leo Shahid PA-C, under the supervision of Dr. Victor. Documented by User: Dr. Giesle Victor MD 04/01/21 17:36 HPI - General General Date of Admission: 04/01/21 [facility] Medical History (Updated 04/01/21 @ 16:57 by Leo BREEN) Brain bleed Spinal cord injury Home Medications levothyroxine 25 mcg PO DAILY 04/22/16 [History Last Taken Unknown] estradiol 1 applicatio VAGINAL QHS 09/27/20 [History Last Taken Unknown] lisinopril 10 mg PO DAILY 10/21/20 [History Last Taken Unknown] ondansetron HCl [Zofran] 4 mg PO Q6H PRN PRN 03/02/21 [History Last Taken Unknown] buspirone 15 mg BID 04/01/21 [History Last Taken Unknown] dexlansoprazole [Dexilant] 60 mg PO DAILY 04/01/21 [History Last Taken Unknown] pantoprazole 40 mg PO BID 04/01/21 [History Last Taken Unknown] sucralfate 1 mg TID 04/01/21 [History Last Taken Unknown] Allergy/AdvReac Type Severity Reaction Status Date / Time cephalexin [From Keflex] Allergy NEEDS Verified 04/01/21 14:24 FOLLOW-UP ciprofloxacin [From Cipro] AdvReac NEEDS Verified 04/01/21 14:24 FOLLOW-UP cyclobenzaprine AdvReac Upset Verified 03/07/21 02:12 [From Flexeril] Stomach erythromycin base AdvReac Upset Verified 03/07/21 02:12 Stomach metoclopramide [From Reglan] AdvReac Upset Verified 03/07/21 02:12 Stomach naproxen AdvReac Upset Verified 03/07/21 02:12 Stomach nitrofurantoin AdvReac Upset Verified 03/07/21 02:12 [From Macrobid] Stomach No blood thinners or aspirin AdvReac Bleeding Uncoded 03/07/21 02:12 Surgical History H/O: hysterectomy History of bladder suspension procedure Hx of cholecystectomy Social History Smoking Status: Never smoker substance use type: does not use Results Lab / Micro Data Result Diagrams: 04/01/21 15:20 04/01/21 15:20
[2021-04-01 17:00] VITALS: BP 159/79; PULSE 84; RESP 16; TEMP 36.4; O2SAT 97
[2021-04-01 17:20] LABS: Thyroid Stim Hormone (TSH) 0.55 uIU/mL (0.358-3.74)
[2021-04-01] MEDS: Smz/Tmp Ds Tablet 1 TABLET PO (17:30)
--- NOTE | 2021-04-01 17:55 | ED.RN ---
Neighbor Della Lozano that brought patient in called and updates on patients admission. Della states she will call her daughters who leave out of state and update them.
[2021-04-01 18:45] VITALS: BMI 22.5
[2021-04-01] MEDS: 0.9% Normal Saline 1,000 ML 100 ML IV (19:09)
[2021-04-01] MEDS: Acetaminophen 325 MG Tablet 650 MG PO ×2 (19:09→23:31)
[2021-04-01 19:33] LABS: Procalcitonin < 0.04 ng/mL (0.00-0.09)
[2021-04-01] MEDS: Sucralfate 1 GM Tablet PO (20:16)
[2021-04-01 20:22] VITALS: BP 119/70; PULSE 83; RESP 16; TEMP 37.1; O2SAT 100
[2021-04-01] MEDS: Pantoprazole Sodium 40 MG Tablet PO (20:24)
[2021-04-01] MEDS: Ondansetron 4 MG/2 ML Vial IV (23:31)
[2021-04-02 03:45] VITALS: BP 124/77; PULSE 74; RESP 18; TEMP 36.7; O2SAT 96
[2021-04-02] MEDS: 0.9% Normal Saline 1,000 ML 100 ML IV (04:37)
[2021-04-02] MEDS: Levothyroxine 25 MCG TABLET PO (05:48)
[2021-04-02] MEDS: Sucralfate 1 GM Tablet PO ×3 (05:48→16:45)
[2021-04-02] MEDS: Acetaminophen 325 MG Tablet 650 MG PO ×3 (05:48→20:11)
[2021-04-02 06:23] LABS: Absolute Lymphocyte Count 1.68 X10^3/uL (0.83-4.51); Absolute Neutrophil Count 2.2 X10^3/uL (2.0-7.7); Basophil# 0.02 X10^3/uL; Basophil% 0.4 % (0-1); Eosinophil# 0.03 X10^3/uL; Eosinophils% 0.7 % (0-5); Hemoglobin 11.6 g/dL (12.0-15.0); Lymphocyte # 1.68 X10^3/ul (0.83-4.51); Lymphocyte % 37.2 % (19-41); Mean Corp Hgb Conc 34.1 g/dL (32-36); Mean Corpuscular Hgb 30.9 pg (27.0-32.0); Mean Corpuscular Volume 90.4 fL (81-99); Mean Platelet Vol. 8.2 fl (6.2-12.0); Monocyte# 0.58 X10^3/uL; Monocyte% 12.8 % (0-10); NRBC Flagged by Analyzer 0 % (0-5); Neutrophil # 2.18 X10^3/uL (2.7-7.7); Neutrophil % 48.2 % (47-70); Platelet Count 314 K/mm3 (150-450); RBC Distribution Width CV 12.5 % (11.6-14.6); RBC Distribution Width SD 40.9 fl (35.1-43.9); Red Blood Count 3.76 M/mm3 (4.2-5.4); White Blood Count 4.5 K/mm3 (4.4-11.0)
[2021-04-02 06:49] LABS: ALB/GLOB Ratio 1.3 RATIO (0.9-2.4); AST(SGOT) 20 U/L (15-37); Alanine Aminotransfer ALT/SGPT 27 U/L (13-56); Albumin, Serum 3.4 g/dL (3.2-5.0); Alkaline Phosphatase 62 U/L (45-117); Anion Gap 8 (5-15); BUN 5 mg/dL (7-18); BUN/Creat Ratio 7.1 RATIO (10-20); Calcium,Total 8.3 mg/dL (8.5-10.1); Chloride 102 mmol/L (98-107); EST Glomerular Filtration Rate 85 mL/min (>60); Est Glom Filt Rate - Afr Amer 103 mL/min (>60); Estimated Creatinine Clearance 36.67 ml/min; Globulin 2.6 g/dL (2.2-4.2); Glucose 98 mg/dL (74-106); Potassium 4.1 mmol/L (3.5-5.1); Sodium Level 134 mmol/L (136-145)
[2021-04-02 07:45] VITALS: O2SAT 98
[2021-04-02 08:02] VITALS: BP 132/79; PULSE 82; RESP 16; TEMP 36.6; O2SAT 100
--- NOTE | 2021-04-02 09:16 | PCM.PN.HOSP ---
Subjective Subjective Doing well, no issues overnight. Still having visual hallucinations, but she recognizes that it is abnormal and that her brain is not functioning. Objective Data Objective Data Vital Signs: Vital Signs Temp Pulse Resp BP Pulse Ox 97.8 F 82 16 132/79 H 100 04/02/21 08:02 04/02/21 08:02 04/02/21 08:02 04/02/21 08:02 04/02/21 08:02 Oxygen Delivery Method Room Air Weight: 131 lb 6.328 oz Body Mass Index (BMI) 22.5 Intake & Output: Intake and Output for Last 24 Hours 04/01/21 04/02/21 04/03/21 03:59 03:59 03:59 Intake Total 300 / 300 1546.67 / 1546.67 Balance 300 / 300 1546.67 / 1546.67 Lab / Micro Data Result Diagrams: 04/02/21 06:10 04/02/21 06:10 Labs: Laboratory Results - last 24 hr 04/01/21 04/01/21 04/01/21 15:12 15:12 15:20 WBC 6.3 RBC 3.97 L Hgb 12.1 Hct 35.5 L MCV 89.4 MCH 30.5 MCHC 34.1 RDW Std Deviation 39.8 RDW Coeff of Kirit 12.2 Plt Count 361 MPV 8.2 Immature Gran % (Auto) 0.500 Neut % (Auto) 64.6 Lymph % (Auto) 23.8 [place] % (Auto) 10.3 H Eos % (Auto) 0.3 Baso % (Auto) 0.5 Absolute Neuts (auto) 4.1 Absolute Lymphs (auto) 1.50 Nucleated RBC % 0 Sodium Potassium Chloride Carbon Dioxide Anion Gap BUN Creatinine Estim Creat Clear Calc Est GFR (MDRD) Af Amer Est GFR (MDRD) Non-Af BUN/Creatinine Ratio Glucose Calcium Magnesium Total Bilirubin AST ALT Alkaline Phosphatase Total Protein Albumin Globulin Albumin/Globulin Ratio Procalcitonin TSH Urine Color Straw Urine Clarity Cloudy Urine pH 7.0 Ur Specific [place] 1.010 Urine Protein Negative Urine Glucose (UA) Normal Urine Ketones 5 H Urine Occult Blood 25 H Urine Nitrite Negative Urine Bilirubin Negative Urine Urobilinogen Normal Ur Leukocyte Esterase 500 H Urine RBC 0-5 SEEN Urine WBC >100 SEEN Ur Squamous Epith Cells 0 SEEN Urine Bacteria 1+ Urine Mucus 0 SEEN Urine Opiates Screen NEGATIVE Urine Methadone Screen NEGATIVE Ur Barbiturates Screen NEGATIVE Ur Phencyclidine Scrn NEGATIVE Ur Amphetamines Screen NEGATIVE U Methamphetamin-MDMA NEGATIVE U Benzodiazepines Scrn NEGATIVE Urine Cocaine Screen NEGATIVE U Cannabinoids Screen NEGATIVE Ur Drug Screen Comment Ethyl Alcohol 04/01/21 04/01/21 04/01/21 15:20 15:20 15:25 WBC RBC Hgb Hct MCV MCH MCHC RDW Std Deviation RDW Coeff of Kirit Plt Count MPV Immature Gran % (Auto) Neut % (Auto) Lymph % (Auto) [place] % (Auto) Eos % (Auto) Baso % (Auto) Absolute Neuts (auto) Absolute Lymphs (auto) Nucleated RBC % Sodium 128 L Potassium 4.1 Chloride 93 L Carbon Dioxide 27.0 Anion Gap 8 BUN 7 Creatinine 0.73 Estim Creat Clear Calc 36.67 Est GFR (MDRD) Af Amer 100 Est GFR (MDRD) Non-Af 82 BUN/Creatinine Ratio 9.6 L Glucose 115 H Calcium 9.1 Magnesium 2.0 Total Bilirubin AST ALT Alkaline Phosphatase Total Protein Albumin Globulin Albumin/Globulin Ratio Procalcitonin TSH 0.55 Urine Color Urine Clarity Urine pH Ur Specific [place] Urine Protein Urine Glucose (UA) Urine Ketones Urine Occult Blood Urine Nitrite Urine Bilirubin Urine Urobilinogen Ur Leukocyte Esterase Urine RBC Urine WBC Ur Squamous Epith Cells Urine Bacteria Urine Mucus Urine Opiates Screen Urine Methadone Screen Ur Barbiturates Screen Ur Phencyclidine Scrn Ur Amphetamines Screen U Methamphetamin-MDMA U Benzodiazepines Scrn Urine Cocaine Screen U Cannabinoids Screen Ur Drug Screen Comment Ethyl Alcohol < 3.0 04/01/21 04/02/21 04/02/21 15:25 06:10 06:10 WBC 4.5 RBC 3.76 L Hgb 11.6 L Hct 34.0 L MCV 90.4 MCH 30.9 MCHC 34.1 RDW Std Deviation 40.9 RDW Coeff of Kirit 12.5 Plt Count 314 MPV 8.2 Immature Gran % (Auto) 0.700 Neut % (Auto) 48.2 Lymph % (Auto) 37.2 [place] % (Auto) 12.8 H Eos % (Auto) 0.7 Baso % (Auto) 0.4 Absolute Neuts (auto) 2.2 Absolute Lymphs (auto) 1.68 Nucleated RBC % 0 Sodium 134 L Potassium 4.1 Chloride 102 Carbon Dioxide 24.0 Anion Gap 8 BUN 5 L Creatinine 0.70 Estim Creat Clear Calc 36.67 Est GFR (MDRD) Af Amer 103 Est GFR (MDRD) Non-Af 85 BUN/Creatinine Ratio 7.1 L Glucose 98 Calcium 8.3 L Magnesium Total Bilirubin 0.50 AST 20 ALT 27 Alkaline Phosphatase 62 Total Protein 6.0 L Albumin 3.4 Globulin 2.6 Albumin/Globulin Ratio 1.3 Procalcitonin < 0.04 TSH Urine Color Urine Clarity Urine pH Ur Specific [place] Urine Protein Urine Glucose (UA) Urine Ketones Urine Occult Blood Urine Nitrite Urine Bilirubin Urine Urobilinogen Ur Leukocyte Esterase Urine RBC Urine WBC Ur Squamous Epith Cells Urine Bacteria Urine Mucus Urine Opiates Screen Urine Methadone Screen Ur Barbiturates Screen Ur Phencyclidine Scrn Ur Amphetamines Screen U Methamphetamin-MDMA U Benzodiazepines Scrn Urine Cocaine Screen U Cannabinoids Screen Ur Drug Screen Comment Ethyl Alcohol Micro: Microbiology 04/01/21 15:13 Urine, Clean Catch Urine Culture - Preliminary GNR Poss Pseudomonas sp 04/01/21 16:30 Mucosa - Nose SARS-CoV-2 Antigen (Rapid) - Final Radiography Diagnostic Testing: Radiology Impression Brain CT 04/01/21 15:05 IMPRESSION: No acute intracranial hemorrhage or mass effect. Electronically Signed: Kurtis Montana MD ([place]) at 16:04 EDT , Service support , Rhythm Strip Rhythm Strip: Sinus Rhythm Rate: 84 Ectopy: None Physical Exam Const alert and no apparent distress General Appearance: cooperative HEENT normocephalic and moist oral mucous membranes Eyes PERRL, EOMs intact bilaterally and conjunctivae normal Neck supple and no JVD Resp normal respiratory effort, no retractions, no use of accessory muscles and clear to auscultation bilaterally Auscultation: Negative for crackles, rales, rhonchi or wheezes Cardio regular rate, regular rhythm, S1 normal heart sound, S2 normal heart sound and no murmurs GI soft to palpation, non-tender and non-distended; Negative for hepatosplenomegaly Extremity no clubbing, cyanosis or edema Skin no rashes or lesions noted Neuro no focal motor deficits and no sensory deficits noted Psych affect normal Appearance: appropriate Thought Content: hallucination(s) Positive for visual Assessment & Plan Assessment/Plan (1) Acute encephalopathy: (2) Acute cystitis: QUALIFIERS: Hematuria presence: with hematuria Qualified Code(s): N30.01 - Acute cystitis with hematuria PLAN: 1. Acute metabolic encephalopathy secondary to acute UTI -Urine culture with gram-negative rods possibly Pseudomonas -We will transition from Rocephin to Cipro -Can continue with gentle IV hydration -She continues to endorse hallucinations, she does state that she has been having some mental health difficulties with anxiety and depression, I discussed with her that I would like to see her baseline first with treatment of her UTI prior to initiating any psych medications. 2. HTN -Blood pressure stable -Continue with lisinopril 3. Hypothyroidism -Stable -Continue with Synthroid 4. Anxiety/depression -Stable -Continue with BuSpar for now once she is back to baseline assess for the addition of other antidepressants, she states that she is really been struggling since her . 5. GERD -Stable -Continue with PPI and Carafate DVT: Lovenox Charges/Coding Visit Charges Inpatient E&M: 78429 Subs Hosp L2
[2021-04-02] MEDS: Pantoprazole Sodium 40 MG Tablet PO ×2 (10:52→20:08)
[2021-04-02] MEDS: Lisinopril 10 MG Tablet PO (10:52)
[2021-04-02] MEDS: busPIRone 15 MG TABLET PO ×2 (10:52→20:13)
[2021-04-02] MEDS: Ciprofloxacin 400 MG/200 ML BAG 200 MG IV ×2 (10:53→21:34)
[2021-04-02] MEDS: Enoxaparin 40 MG/0.4 ML Syringe SC (10:57)
[2021-04-02] MEDS: Polyethylene Glycol 3350 17 GM PACKET PO ×2 (11:45→20:08)
--- NOTE | 2021-04-02 12:26 | EX.NTREPO ---
Medical Nutrition Therapy - History Nutrition Services has been consulted to:: Manage nutrient details of diet order Current diet/nutrition support order:: Cardiac. 120 ml Ensure enlive 4x/day - Anthropometric Measurements Height:: 5 ft 2 in Weight:: 59.6 kg Body Mass Index (BMI):: 24.0 - Relevant Labs Relevant Labs:: RBC 3.76 M/mm3 (4.2-5.4) L 04/02/21 06:10 Hgb 11.6 g/dL (12.0-15.0) L 04/02/21 06:10 Hct 34.0 % (37-47) L 04/02/21 06:10 [place] % (Auto) 12.8 % (0-10) H 04/02/21 06:10 Sodium 134 mmol/L (136-145) L 04/02/21 06:10 Chloride 93 mmol/L (98-107) L 04/01/21 15:20 BUN 5 mg/dL (7-18) L 04/02/21 06:10 BUN/Creatinine Ratio 7.1 RATIO (10-20) L 04/02/21 06:10 Glucose 115 mg/dL (74-106) H 04/01/21 15:20 Calcium 8.3 mg/dL (8.5-10.1) L 04/02/21 06:10 Total Protein 6.0 g/dL (6.4-8.2) L 04/02/21 06:10 - Assessment Food and Nutrient Intake: Pt reports unintentional wt loss of 15lbs/6% x 8 weeks d/t spinal leak leaving pt bed ridden- states UBW 140 lbs. Notes bedridden since December 2020. Wt loss non-significant for malnutrition. Wt hx per EMR 10/06/2020 136.7 lbs. CBW 131.4 lbs. Reports appetite/intake began to decrease over the past 8 weeks and worsening over the past 4 weeks. States has been consuming <50% of meals at 2 meals per day x 4 weeks. Reports decreased intake related to nausea. No episodes of vomiting reported. Notes unable to prepare meals herself since December so has been receiving MOW and meals from [facility] as well. Started drinking ensure last week and protein drinks but states not consuming daily. Reports significant muscle loss since December from being bedridden. Relates chronic constipation-txs with miralax at home. Nutrition focused physical exam: moderate temporal scooping/depression, moderate orbital region depression/hollow look, moderate clavicle bone protrusion, moderate interosseous dorsal hand depression. - Nutrition Diagnosis: Clinical Problem Acute Disease or Injury Related Malnutrition Clinical Problem - Etiology: Moderated malnutrition in the context of acute illness/injury related to inadequate oral intake and physical inactivity Clinical Problem - Signs/Symptoms: as evidenced by pt reports consuming <50% energy intake compared to estimated needs x >/= 1 month, nutrition focused physical exam moderate temporal scooping/depression, moderate orbital region depression/hollow look, moderate clavicle bone protrusion, moderate interosseous dorsal hand depression and pt reports being bedridden since December 2020. Status: Active Problem - Protein Calorie Malnutrition Evidence of Malnutrition Exists: Yes Moderate Protein Calorie Malnutrition: Acute Illness/Injury - Nutrition Intervention Nutrition Prescription: 8276-2276 calories (RMR x 1.2). 55-65 grams protein (1g/kg). 6454-9162 ml fluid (25 ml/kg) - Food / Nutrient Delivery Interventions Nutrition support ordered as / adjusted to:: Will provide Regular diet. Continue ONS w/ medpass will provide ensure pudding or magic cup at meals. - MNT Monitoring Active Nutrition Patient: Yes Nutrition Status: Requires Follow Up 3-5 Days
[2021-04-02 12:27] VITALS: BMI 24.0
[2021-04-02 13:32] VITALS: BP 131/71; PULSE 87; RESP 16; TEMP 36.9; O2SAT 98
[2021-04-02] MEDS: Ondansetron 4 MG/2 ML Vial IV (20:14)
[2021-04-02 20:22] VITALS: BP 131/62; PULSE 82; RESP 18; TEMP 36.7; O2SAT 98
[2021-04-03] VITALS (10 sets, daily range): BP systolic 122–174; BP diastolic 59–84; PULSE 83–112; RESP 18–20; TEMP 36.6–36.8; O2SAT 96–98
[2021-04-03] MEDS: Acetaminophen 325 MG Tablet 650 MG PO ×4 (03:20→20:40)
[2021-04-03] MEDS: 0.9% Saline Lock 10 ML Syringe IV ×5 (04:16→20:41)
[2021-04-03] MEDS: hydrALAZINE 20 MG/ML Vial 10 MG IV (04:16)
[2021-04-03] MEDS: Sucralfate 1 GM Tablet PO ×3 (05:31→16:49)
[2021-04-03] MEDS: Levothyroxine 25 MCG TABLET PO (05:31)
--- NOTE | 2021-04-03 07:44 | PN.HOSP_ITS ---
Objective Data Objective Data Vital Signs: Vital Signs Temp Pulse Resp BP Pulse Ox 97.8 F 96 20 H 122/59 H 98 04/03/21 04:05 04/03/21 05:29 04/03/21 04:05 04/03/21 05:29 04/03/21 04:05 Oxygen Delivery Method Room Air Weight: 126 lb 15.78 oz Body Mass Index (BMI) 24.0 Intake & Output: Intake and Output for Last 24 Hours 04/01/21 04/02/21 04/03/21 23:59 23:59 23:59 Intake Total 3246.67 / 3546.67 550 / 550 Balance 3246.67 / 3546.67 550 / 550 Lab / Micro Data Result Diagrams: 04/02/21 06:10 04/02/21 06:10 Micro: Microbiology 04/01/21 15:13 Urine, Clean Catch Urine Culture - Preliminary GNR Poss Pseudomonas sp 04/01/21 16:30 Mucosa - Nose SARS-CoV-2 Antigen (Rapid) - Final Rhythm Strip Rhythm Strip: Sinus Rhythm Rate: 84 Ectopy: None Assessment & Plan Assessment/Plan (1) Acute encephalopathy: PLAN: 1. Acute metabolic encephalopathy secondary to acute UTI due to Pseudomonas: Urine culture shows gram-negative luis Pseudomonas more than 100,000 colonies. Patient on ciprofloxacin. Patient further stated she gets UTI every 2 months but it feels like she attributes UTI to cloudy urine. Currently she has burning micturition increased frequency which is getting better. Denies urgency or urine retention. Request ID consult for history of recurrent UTI. 2. HTN -Blood pressure stable -Continue with lisinopril 3. Hypothyroidism -Continue with Synthroid 4. Anxiety/depression: History of chronic back pain. She also said she had a spinal fluid leak and had epidural patch in December 2020 in [facility] and then after she got chronic back pain. Her history is tangential with emotional lability and crying. She is easily distractible. Started on Paxil low-dose 10 mg daily. Continue BuSpar. She has pain management but was told that she is noncompliant. Continue to follow with outpatient pain management. 5. GERD -Continue with PPI and Carafate DVT: Lovenox Clinical Impression(s) from Imaging Studies Brain CT 04/01/21 15:05 IMPRESSION: No acute intracranial hemorrhage or mass effect. Charges/Coding Visit Charges Inpatient E&M: 40335 Subs Hosp L2
[2021-04-03] MEDS: Ondansetron 4 MG/2 ML Vial IV ×2 (08:26→16:53)
[2021-04-03] MEDS: Enoxaparin 40 MG/0.4 ML Syringe SC (10:17)
[2021-04-03] MEDS: busPIRone 15 MG TABLET PO ×2 (10:17→22:21)
[2021-04-03] MEDS: Pantoprazole Sodium 40 MG Tablet PO ×2 (10:18→22:21)
[2021-04-03] MEDS: Polyethylene Glycol 3350 17 GM PACKET PO (10:18)
[2021-04-03] MEDS: Lisinopril 10 MG Tablet PO (10:18)
[2021-04-03] MEDS: Ciprofloxacin 400 MG/200 ML BAG 200 MG IV ×2 (10:21→22:21)
[2021-04-03] MEDS: PARoxetine 10 MG Tablet PO (10:21)
--- NOTE | 2021-04-03 10:50 | CASEMGMT ---
RUBÉN FISHER Assessment: Face to Face with pt for initial transition planning/care coordination assessment. RN PHILLIP introduced self and role at [facility], pt voices understanding and consents to assessment. Pt is A/O x4 and answers all questions appropriately at this time. Pt lying flat in bed d/t spinal fluid leak per pt report. Care providers, pharmacy, and demographics verified/updated. Admitting Dx: acute encephalopathy, acute UTI PCP: Kristi Specialists: Mimi, uro tax evaluator; Gus, neurosurgeon; neuro from [facility] Preferred Pharmacy: [facility] Insurance: [employer] [facility] Prescription Benefit: yes LW/HPOA: Pt has LW/DPOA on file at [facility]. Pt DPOA was her who has passed with first Alternate Aileen Lau and second alternate Siena Hay. LNOK: Siena Hay, dtr; lacey Ambrocio, Aileen Lau, friend Living Arrangements: Pt lives alone in split level house with 2-3 steps to enter. Pt reports she was I in ADL's prior to hospitalization. Pt states she is fearful to go home and spend nights as she saw goblins when she was hallucinating. Pt inquiring on services to stay at night with her. Gave pt private duty agency list. Transportation: Pt reports she has not driven since December d/t spinal fluid leaks. Family or friends transport pt. DME/HHC/SNF: Pt has a shower chair at home but does not use. Pt has meals on wheels. Pt denies previous HHC or SNF stays. Pt is asking if she can have home PT. Pt states she can be up at times and would like strengthening. Patient was provided a list of [facility] providers including quality and resource use data and consistent with the patient?s preferred geographic region, medical needs, and insurance network. The patient?s preferred provider [facility]. TC vaughn Duran in intake with referral. She will review referral and call back with acceptance. Pt interested in ERECTOR OPERATOR to see if she would qualify for any community resources. Pt states she needs to schedule an appt with [facility] as they are trying to identify her spinal fluid leakage. Pt has concerns about going home. States I hate being alone. Pt states no further concerns/needs. CM to follow. Advised pt to ask CM if any further question/concerns/needs arise, voices understanding. Pt Goal: Home with HHC Plan: Home with [facility] PT and ERECTOR OPERATOR.
--- NOTE | 2021-04-03 13:00 | CASEMGMT ---
Social Work Note TERRY updated that pt is depressed. SW in to speak with pt. SW introduced self and role at [facility]. Pt is alert and orientated, engages appropriately in conversation. Pt began by telling this worker all of the medical problems she has had since October of this year. Pt states in October she was having headaches to she came to the ED and was transferred out as pt had two brain bleeds. Pt then discovered after the brain bleeds that she had leaks in the spinal cord. Pt states on December 13 she had to have blood patches which required pt to be on bed rest/bed ridden for 6-8 weeks. Pt states she has had 5-6 ED Visits this year. Pt states she has recently had issues with sleeping and has had hallucinations. Pt states she was seeing [place], people sitting in living room, and people in the bedroom. SW spoke with pt about hallucinations, pt states she was told she had a UTI. Pt states she never before has had hallucinations. Pt states it is my fault, the decisions I have made have put me in this situation. SW asked to be elaborate. Pt states she went to the Chiropractor even though she was told to not go there. Pt states Dr. Berry had prescribed anxiety medications for her weeks ago but states she took one of the pills and she got a really bad headache so she stopped taking that medication. SW offered support to pt, spoke with pt about how she can't go back and change those decisions she has made, but can make new decisions. Mental Health Hx: Pt states history of Anxiety and Depression. Pt states she is a bundle of nerves. Pt states she is feeling really down right now. Pt states all I was doing was staying in my bed and I didn't want to eat. SW offered support to pt. SW asked pt about coping skills. Pt states I was prescribed Xanax and I will take that. Pt states she likes to watch TV, specifically I Love Luisa and Wheel of Fortune. SW asked pt if talking to someone helps pt. Pt states he calls her daughters everyday but states they increase her anxiety. Pt states it's becoming more that I can handle. Pt states I don't want to . SW spoke with pt about counseling. Pt states she has never been in counseling before but states maybe I should have a counselor. SW provided pt with counseling resources. Pt asked which one she should go to, SW informed pt that this worker cannot chose a counseling agency for pt and she will need to pick one herself. Pt states she has no idea who she would go to. SW encouraged pt to call around counseling agencies and call family/friends to inquire about recommendations. Pt states she is currently on medications for her anxiety and depression. Pt denied any history of suicidal thoughts/plans/ideations. Pt denied any current suicidal thoughts/plans/ideations. Religious: Pt states she is a Confucianist, has khang but khang has been limited lately. Pt states she was seeing the Devil and tried to banish the devil from her house. SW informed pt that [facility] has a Silk Examiner she can speak to. Pt agreeable to speaking to Silk Examiner. Supports: Pt states she has three daughters and they all live out of state. Pt states she talks to her daughter's daily. Pt states she does have neighbors that are good supports to her and can sometimes help out. Community Resources: Pt states it was mentioned to her before about Assisted Living. Pt states she did hire a girl to come in 3x a week to help with cooking and cleaning. SW provided pt with additional community resources and list of Assisted Living. Pt states she doesn't want to go to a correction. Interventions: SW placed a call to Chaplain Fidencio, and left message for referral. Pt was provided resources for counseling, community resources, and Assisted Livings. TERRY spent much time with pt providing support and utilizing listening skills. Pt with labile mood during conversation, able to maintain appropriate eye contact. Pt denied any current suicidal thoughts/plans/ideations. Deborah Bustamante WOUND TREATMENT RN, SCRIP CLERK
--- NOTE | 2021-04-03 14:13 | CON.PCM.ID_ITS ---
Assessment & Plan Assessment/Plan (1) Acute cystitis: QUALIFIERS: Hematuria presence: with hematuria Qualified Code(s): N30.01 - Acute cystitis with hematuria PLAN: Ucx with pseudomonas. Hallucinations resolved. Plan on 7 days t otal of cipro. With recurrent uti, she wishes to establish with Dr. Barrera for urology. At discharge, will start Hiprex and vitamin C in the meantime to help with prevention. Will follow, thank you. HPI Consult Data Date of Consult: 04/03/21 HPI Narrative HPI Narrative: ALDO SHAH, is a 80 F who presented 04/01 with 3 days of visual hallucinations, was seeing angels flying around her head. Reports several months of recurrent uti, typical symptom is foul odor, increased frequency, some dysuria. No abd pain. Came to ED, admitted on ceftriaxone, now changed to cipro, no further hallucinations. Has not gotten covid vaccine. Full ROS performed and neg except as noted above. [facility] Medical History Brain bleed Spinal cord injury Home Medications levothyroxine 25 mcg PO DAILY 04/22/16 [History Last Taken 04/01/21] estradiol 1 applicatio VAGINAL QHS 09/27/20 [History Last Taken 03/31/21] lisinopril 10 mg PO DAILY 10/21/20 [History Last Taken 04/01/21] ondansetron HCl [Zofran] 4 mg PO Q6H PRN PRN 03/02/21 [History Last Taken Unknown] dexlansoprazole [Dexilant] 60 mg PO DAILY 04/01/21 [History Last Taken 04/01/21] sucralfate 1 mg PO TID 04/01/21 [History Last Taken 04/01/21] alprazolam [Xanax] 0.25 mg PO BID PRN PRN 04/03/21 [History Last Taken Unknown] Allergy/AdvReac Type Severity Reaction Status Date / Time cephalexin [From Keflex] Allergy NEEDS Verified 04/01/21 14:24 FOLLOW-UP cyclobenzaprine AdvReac Upset Verified 03/07/21 02:12 [From Flexeril] Stomach erythromycin base AdvReac Upset Verified 03/07/21 02:12 Stomach metoclopramide [From Reglan] AdvReac Upset Verified 03/07/21 02:12 Stomach naproxen AdvReac Upset Verified 03/07/21 02:12 Stomach nitrofurantoin AdvReac Upset Verified 03/07/21 02:12 [From Macrobid] Stomach No blood thinners or aspirin AdvReac Bleeding Uncoded 03/07/21 02:12 Surgical History H/O: hysterectomy History of bladder suspension procedure Hx of cholecystectomy Social History Smoking Status: Never smoker substance use type: does not use Physical Exam Const alert and no apparent distress General Appearance: cooperative HEENT normocephalic and head/scalp atraumatic Eyes PERRL and EOMs intact bilaterally Neck supple and No nodes Resp normal air movement and clear to auscultation bilaterally Cardio regular rate and regular rhythm GI normal to inspection, nondistended, normoactive bowel sounds Extremity no clubbing, cyanosis or edema Skin no rashes or lesions noted Neuro CN's II-XII intact bilaterally Lab / Micro Data Result Diagrams: 04/02/21 06:10 04/02/21 06:10 Micro: Microbiology 04/01/21 15:13 Urine Culture - Final Urine, Clean Catch Pseudomonas aeroginosa Rhythm Strip Rhythm Strip: Sinus Rhythm Rate: 84 Ectopy: None
[2021-04-03] MEDS: ALPRAZolam 0.25 MG Tablet 0.125 MG PO ×2 (14:34→20:40)
--- NOTE | 2021-04-03 16:45 | CHAPLAIN ---
Type of Pastoral Visit _x__ Initial Visit ___ Follow-up Visit ___ On-call Visit ___ General Patient Visit ___ Spiritual Assessment ___ Family Conference ___ Bereavement ___ Rapid Response ___ Code Blue ___ Other (describe below) Pastoral Care Referral From _x__ Patient ___ Family ___ Nurse ___ Physician _x__ System Configuration Specialist ___ Automatic Hemmer ___ Other (describe below) Sacrament/Intervention _x__ Active listening ___ Anointing ___ Hoahaoism ___ Bereavement ___ Communion _x__ Sara exploration ___ _x__ Life review _x__ Prayer ___ Reconciliation ___ Sacrament of Sick _x__ Supportive presence ___ Wedding ___ Other (describe below) Pastoral Comments patient was referred to this heel scourer; pt is lying flat in bed and describes her situation and pain; pt says she cannot sleep; pt states this is all my fault; pt says that she was told not to go to a chiropractor but she did and now I am being punished for doing that; pt says God is punishing her but then she retracts that statement; pt expresses uncertainly about decisions to make; pt says that she is a Faith and a member of a local spiritism but gets conflicting messages from her relatives and friends about the causes of her illness and what to do about it; pt says she is afraid of going home because of having hallucinations from her meds; pt states that loneliness is a problem for her as well; much listening and then focusing on the positives of her life and sara, the things that help her keep positive, remembering the scriptures and songs she knows that encourage her, etc. prayer is desired and given;
[2021-04-03] MEDS: proCHLORPERazine 10 MG/2 ML Vial 5 MG IV (20:41)
[2021-04-03] MEDS: traMADol 50 MG Tablet PO (22:20)
[2021-04-04 01:32] VITALS: BP 147/81; PULSE 93; RESP 18; TEMP 36; O2SAT 100
[2021-04-04] MEDS: 0.9% Saline Lock 10 ML Syringe IV ×2 (01:38→07:22)
[2021-04-04] MEDS: Ondansetron 4 MG/2 ML Vial IV (01:38)
[2021-04-04] MEDS: Acetaminophen 325 MG Tablet 650 MG PO ×3 (01:38→14:52)
[2021-04-04] MEDS: ALPRAZolam 0.25 MG Tablet 0.125 MG PO ×2 (01:39→14:53)
[2021-04-04 05:58] VITALS: BP 146/66; PULSE 88; RESP 18; TEMP 36.6; O2SAT 99
[2021-04-04] MEDS: Sucralfate 1 GM Tablet PO ×2 (06:01→10:50)
[2021-04-04] MEDS: Levothyroxine 25 MCG TABLET PO (06:01)
[2021-04-04] MEDS: proCHLORPERazine 10 MG/2 ML Vial 5 MG IV (07:21)
[2021-04-04 08:18] VITALS: BP 138/71; PULSE 92; RESP 16; TEMP 36.6; O2SAT 99
[2021-04-04 09:31] VITALS: O2SAT 99
[2021-04-04] MEDS: busPIRone 15 MG TABLET PO (10:50)
[2021-04-04] MEDS: Lisinopril 10 MG Tablet PO (10:50)
[2021-04-04] MEDS: Ciprofloxacin 400 MG/200 ML BAG 200 MG IV (10:50)
[2021-04-04] MEDS: Enoxaparin 40 MG/0.4 ML Syringe SC (10:51)
[2021-04-04] MEDS: Pantoprazole Sodium 40 MG Tablet PO (10:52)
[2021-04-04] MEDS: PARoxetine 10 MG Tablet PO (10:52)
[2021-04-04] MEDS: Polyethylene Glycol 3350 17 GM PACKET PO (10:53)
--- NOTE | 2021-04-04 10:56 | CASEMGMT ---
Social Work Note HCPOA and LW are on pt's chart. SW printed off documents and placed documents on pt's chart. Deborah Bustamante BIOMEDICAL FIELD SERVICE ENGINEER, INSULATION MECHANIC
--- NOTE | 2021-04-04 11:52 | CASEMGMT ---
RN PHILLIP met with pt dtr per her request. Discussed dc plan and expectations of private duty and [facility]. She is aware that she will need to call private duty agencies to hire services. She is aware that she may interview them, ask if they background check their staff, etc as she is concerned of just having anybody come in and stay the night with my mom. She denies further needs at this time.
--- NOTE | 2021-04-04 11:58 | CASEMGMT ---
Pt screened using [facility] Palliative Care Screening Tool due to strata 3, pt did not meet criteria.
--- NOTE | 2021-04-04 13:40 | PCM.PN.HOSP ---
Subjective Subjective Patient is awake and alert. She was admitted with altered mental status and hallucinations. She had dysuria and increased frequency but now has resolved. She is eager to follow-up with Dr. Barrera, Urogynecologist Objective Data Objective Data Vital Signs: Vital Signs Temp Pulse Resp BP Pulse Ox 97.8 F 92 16 138/71 H 99 04/04/21 08:18 04/04/21 08:18 04/04/21 08:18 04/04/21 08:18 04/04/21 09:31 Oxygen Delivery Method Room Air Weight: 130 lb 3.2 oz Body Mass Index (BMI) 24.0 Intake & Output: Intake and Output for Last 24 Hours 04/02/21 04/03/21 04/04/21 23:59 23:59 23:59 Intake Total 3246.67 / 3546.67 1500 / 1500 450 / 450 Balance 3246.67 / 3546.67 1500 / 1500 450 / 450 Lab / Micro Data Result Diagrams: 04/02/21 06:10 04/02/21 06:10 Micro: Microbiology 04/01/21 15:13 Urine, Clean Catch Urine Culture - Final Pseudomonas aeroginosa 04/01/21 16:30 Mucosa - Nose SARS-CoV-2 Antigen (Rapid) - Final Rhythm Strip Rhythm Strip: Sinus Rhythm Rate: 84 Ectopy: None Physical Exam Narrative Physical exam General: Alert, Oriented x3, Cooperative HEENT: Atraumatic, PERRLA, EOMI, Normocephalic Oral: No Gingival or Mucosal Lesions/ Ulcerations Neck: Supple, No JVD, Negative Carotid Bruits Lungs: Air entry equal in bilateral lung bases. No crepitation/rhonchi Cardiovascular: Regular rate, Regular Rhythm, Normal S1, Normal S2, No murmurs Abdomen: Bowel Sounds Present, Soft, Non Tender, Non-Distended : No renal angle tenderness. No suprapubic tenderness. Extremities: No edema, Capillary Refill Less than 3 Seconds Skin: No rashes, No breakdown Musculoskeletal/spine: Mild lumbar paraspinal tenderness present. No Tenderness to Palpation of Joints or Extremities Neurological: Cranial nerves II-XII grossly intact, Deep Tendon Reflexes 2+/4, neuro grossly intact Psych/Mental Status: Feels better, less anxiety. Assessment & Plan Assessment/Plan (1) Acute encephalopathy: PLAN: 1. Acute metabolic encephalopathy secondary to acute UTI due to Pseudomonas: Urine culture shows gram-negative luis Pseudomonas more than 100,000 colonies. Patient on ciprofloxacin. Patient further stated she gets UTI every 2 months but it feels like she attributes UTI to cloudy urine. Currently she has burning micturition increased frequency which is getting better. Denies urgency or urine retention. Request ID consult for history of recurrent UTI. 2. HTN -Blood pressure stable -Continue with lisinopril 3. Hypothyroidism -Continue with Synthroid 4. Anxiety/depression: History of chronic back pain. She also said she had a spinal fluid leak and had epidural patch in December 2020 in [facility] and then after she got chronic back pain. Her history is tangential with emotional lability and crying. She is easily distractible. Started on Paxil low-dose 10 mg daily. Continue BuSpar. She has pain management but was told that she is noncompliant. Continue to follow with outpatient pain management. 5. GERD -Continue with PPI and Carafate DVT: Lovenox Clinical Impression(s) from Imaging Studies Brain CT 04/01/21 15:05 IMPRESSION: No acute intracranial hemorrhage or mass effect.
--- NOTE | 2021-04-04 14:08 | PCM.DC ---
Discharge Instructions Diet Discharge Diet: No restrictions Activity Discharge Activity: Return to Normal Activity and May Not Drive Weight Bearing Status: Weight bearing as tolerated Dressing / Incision Call your doctor if you observe: Fever of 101 or Higher, Coldness, Increased Pain, Numbness or Tingling, Change in Color, Inability to urinate, Inability to have a bowel movement, Using more than 1 pad per hour, Shortness of breath, Dizziness, Fainting spells, Swelling in the ankles, Chest pain, Prolonged hiccupping, Increased palpitations (irregular heartbeat), Calf discomfort and Uncontrolled pain Follow Up Care Test Results: Test results from this visit will be discussed in further detail at your follow-up appointment, if applicable. Discharge Plan Admission Admit Date/Time: 04/01/21 16:25 Primary Reason for Your Visit: Acute encephalopathy probably from UTI Attending Provider: Diogenes Lemon Primary Care Provider: Adi Berry Consulting Providers: Joel Eden Discharge Orders/Prescriptions Prescriptions: New methenamine hippurate [Hiprex] 1 gram tablet 1 g PO BID Qty: 60 RF: 1 ascorbic acid (vitamin C) [Vitamin C] 500 mg tablet 500 mg PO BID Qty: 60 RF: 1 paroxetine HCl 10 mg Tablet 10 mg PO DAILY Qty: 30 RF: 0 polyethylene glycol 3350 17 gram Powder In Packet 17 g PO DAILY Qty: 0 RF: 0 ciprofloxacin HCl 500 mg Tablet 500 mg PO BID Qty: 10 RF: 0 Continued levothyroxine 25 MCG tablet 25 mcg PO DAILY RF: 0 estradiol 42.5 GM cream 1 applicatio VAGINAL QHS RF: 0 lisinopril 5 MG tablet 10 mg PO DAILY RF: 0 ondansetron HCl [Zofran] 4 mg tablet 4 mg PO Q6H PRN PRN (Reason: Nausea) RF: 0 sucralfate 1 gram tablet 1 mg PO TID RF: 0 Dexilant 60 mg Capsule,Biphase Delayed Releas 60 mg PO DAILY RF: 0 alprazolam [Xanax] 0.25 mg Tablet 0.25 mg PO BID PRN PRN (Reason: Anxiety) RF: 0 Referrals / Follow Up: Adi Berry MD [Primary Care Provider] - Within 2 Weeks Emily Barrera MD [STAFF PHYSICIAN] - In 1 Week (Follow-up on April 06, 2021, ) Disposition Disposition (needs filled in before D/C Order can be placed): Home Health Service
--- NOTE | 2021-04-04 14:17 | DS.PCM_ITS ---
Providers Date of Admission: 04/01/21 Primary Care Physician: Dr. Adi Berry MD Consultations 04/03/21 09:40 Consult: Infectious Disease Routine Consulting Provider: Joel Eden Reason for Consult: Recurrent UTI, Pseudomonas, Had mesh repair surgery EMERGENT Consult: No MD Notified: Yes Date Notified: 04/03/21 Time Notified: 10:43 Method of Notification: spoke with office Reason For Visit: ACUTE ENCEPHALOPAHTY, ACUE UTI Diagnosis Discharge Diagnosis (1) Acute encephalopathy: Status: Acute Code(s): G93.40 - Encephalopathy, unspecified Medications at Discharge Home Medications levothyroxine 25 mcg PO DAILY 04/22/16 estradiol 1 applicatio VAGINAL QHS 09/27/20 lisinopril 10 mg PO DAILY 10/21/20 ondansetron HCl [Zofran] 4 mg PO Q6H PRN PRN 03/02/21 Dexilant 60 mg PO DAILY 04/01/21 sucralfate 1 mg PO TID 04/01/21 alprazolam [Xanax] 0.25 mg PO BID PRN PRN 04/03/21 ascorbic acid (vitamin C) [Vitamin C] 500 mg PO BID #60 tab 04/03/21 methenamine hippurate [Hiprex] 1 g PO BID #60 tab 04/03/21 ciprofloxacin HCl 500 mg PO BID #10 tab 04/04/21 paroxetine HCl 10 mg PO DAILY #30 tab 04/04/21 polyethylene glycol 3350 17 g PO DAILY #0 ea 04/04/21 Hospital Course Summary of Care Provided Hospital Course: This 80-year-old female was admitted for altered mental status, visual hallucinations for 3 days. Patient has history of anxiety and depression and is on Xanax at home. Patient has UTI symptoms including burning micturition, increased frequency and urgency. She had bladder sling surgery probably in [facility] as per history. 1. Acute metabolic encephalopathy secondary to acute UTI due to Pseudomonas: Urine culture shows gram-negative luis Pseudomonas more than 100,000 colonies. Patient on ciprofloxacin. Patient further stated she gets UTI every 2 months but hard to ascertain from history. Medical record from [facility] re viewed. Patient grew Pseudomonas on 04/02/2021 more than 100,000 colonies and sensitive to Cipro. Patient also had MRI of pelvis in February 2021 which showed postoperative changes from hysterectomy with some linear bands of fibrosis along superior aspect of vagina probably due to scarring from hysterectomy. There is anterior angulation of the urethra due to presence of mesh sling. There is mild bladder wall thickening which is more pronounced along the inferior aspect could be from infection or scarring from prior surgeries. During hospital course, burning micturition/dysuria and frequency and urgency improved. Patient was seen by ID and recommended total 7 days of ciprofloxacin. Start Hip-João and vitamin C for recurrent UTI prevention. Follow-up with Dr. Weaver on , April 06, 2021. 2. HTN -Blood pressure stable -Continue with lisinopril 3. Hypothyroidism -Continue with Synthroid 4. Anxiety/depression: History of chronic back pain. She also said she had a spinal fluid leak and had epidural patch in December 2020 in [facility] and then after she got chronic back pain. Started on Paxil low-dose 10 mg daily. Patient had BuSpar. She has pain management but was told that she is noncompliant. Continue to follow with outpatient pain management. 5. GERD -Continue with PPI and Carafate DVT: Lovenox Discharge medication reconciliation done. Discharge follow-up instructions completed. Discharge process discussed with the patient and all questions were answered to patient's satisfaction. Discharged home with home health care. Total time spent, exact 35 minutes on discharge meds reconciliation, examination, coordination of care with nurses and ancillary staff, review of imaging and blood test and discussion with the patient on follow-up instructio ns Physical Exam Narrative Physical exam General: Alert, Oriented x3, Cooperative HEENT: Atraumatic, PERRLA, EOMI, Normocephalic Oral: No Gingival or Mucosal Lesions/ Ulcerations Neck: Supple, No JVD, Negative Carotid Bruits Lungs: Air entry equal in bilateral lung bases. No crepitation/rhonchi Cardiovascular: Regular rate, Regular Rhythm, Normal S1, Normal S2, No murmurs Abdomen: Bowel Sounds Present, Soft, Non Tender, Non-Distended : No renal angle tenderness. No suprapubic tenderness. Extremities: No edema, Capillary Refill Less than 3 Seconds Skin: No rashes, No breakdown Musculoskeletal/spine: Mild lumbar paraspinal tenderness present. No Tenderness to Palpation of Joints or Extremities Neurological: Cranial nerves II-XII grossly intact, Deep Tendon Reflexes 2+/4, neuro grossly intact Psych/Mental Status: Feels better, less anxiety. Const alert and no apparent distress General Appearance: cooperative HEENT normocephalic and moist oral mucous membranes Eyes PERRL, EOMs intact bilaterally and conjunctivae normal Neck supple and no JVD Resp normal respiratory effort, no retractions, no use of accessory muscles and clear to auscultation bilaterally Auscultation: Negative for crackles, rales, rhonchi or wheezes Cardio regular rate, regular rhythm, S1 normal heart sound, S2 normal heart sound and no murmurs GI soft to palpation, non-tender and non-distended; Negative for hepatosplenomegaly Extremity no clubbing, cyanosis or edema Skin no rashes or lesions noted Neuro no focal motor deficits and no sensory deficits noted Psych affect normal Appearance: appropriate Thought Content: hallucination(s) Positive for visual Weight / BMI Weight Weight: 130 lb 3.2 oz Body Mass Index (BMI) 24.0 ABG / Lab / Microbiology Data Result Diagrams: 04/02/21 06:10 04/02/21 06:10 Microbiology: Microbiology 04/01/21 15:13 Urine, Clean Catch Urine Culture - Final Pseudomonas aeroginosa 04/01/21 16:30 Mucosa - Nose SARS-CoV-2 Antigen (Rapid) - Final D/C Instructions Discharge Diet: No restrictions Weight Bearing Status: Weight bearing as tolerated Call your doctor if you observe: Fever of 101 or Higher, Coldness, Increased Pain, Numbness or Tingling, Change in Color, Inability to urinate, Inability to have a bowel movement, Using more than 1 pad per hour, Shortness of breath, Dizziness, Fainting spells, Swelling in the ankles, Chest pain, Prolonged hiccupping, Increased palpitations (irregular heartbeat), Calf discomfort and Uncontrolled pain Meaningful Use Info Meaningful Use Diagnoses (Choose all that apply): None applicable Discharge Plan Admission Admit Date/Time: 04/01/21 16:25 Primary Reason for Your Visit: Acute encephalopathy probably from UTI Attending Provider: Diogenes Lemon Primary Care Provider: Adi Berry Consulting Providers: Joel Eden Discharge Orders/Prescriptions Prescriptions: New methenamine hippurate [Hiprex] 1 gram tablet 1 g PO BID Qty: 60 RF: 1 ascorbic acid (vitamin C) [Vitamin C] 500 mg tablet 500 mg PO BID Qty: 60 RF: 1 paroxetine HCl 10 mg Tablet 10 mg PO DAILY Qty: 30 RF: 0 polyethylene glycol 3350 17 gram Powder In Packet 17 g PO DAILY Qty: 0 RF: 0 ciprofloxacin HCl 500 mg Tablet 500 mg PO BID Qty: 10 RF: 0 Continued levothyroxine 25 MCG tablet 25 mcg PO DAILY RF: 0 estradiol 42.5 GM cream 1 applicatio VAGINAL QHS RF: 0 lisinopril 5 MG tablet 10 mg PO DAILY RF: 0 ondansetron HCl [Zofran] 4 mg tablet 4 mg PO Q6H PRN PRN (Reason: Nausea) RF: 0 sucralfate 1 gram tablet 1 mg PO TID RF: 0 Dexilant 60 mg Capsule,Biphase Delayed Releas 60 mg PO DAILY RF: 0 alprazolam [Xanax] 0.25 mg Tablet 0.25 mg PO BID PRN PRN (Reason: Anxiety) RF: 0 Referrals / Follow Up: Emily Barrera MD [STAFF PHYSICIAN] - In 1 Week (Follow-up on April 06, 2021, ) Adi Berry MD [Primary Care Provider] - Within 2 Weeks Disposition Disposition (needs filled in before D/C Order can be placed): Home Health Service Charges/Coding Visit Charges Inpatient E&M: 23342 Disch Hosp
[2021-04-04 14:27] VITALS: BP 152/76; PULSE 93; RESP 16; TEMP 36.7; O2SAT 98
--- NOTE | 2021-04-05 14:34 | CASEMGMT ---
RN CM Discharge Follow Up Phone Call: IAME: 11 Strata:3 Call Date: 04.05.21 Discharge Date: 04.04.21 Time of Call: 1434 Duration:<1 min Admitting Dx: acute encephalopathy, acute UTI RN PHILLIP attempted to complete follow up phone call after recent hospitalization. No answer. Left message with patient with call back information.
== END 2021-04-04 15:15 | disposition home health service (06) | DRG 689 ==
LOC: ED 15:30 → MS3 16:41
PROVIDERS: Admitting Provider Family Medicine; Emergency Provider Emergency Medicine; PCP Family Medicine; Visit Provider Internal Medicine
DX: N30.01 Acute cystitis with hematuria (principal); G93.41 Metabolic encephalopathy; E87.1 Hypo-osmolality and hyponatremia; E44.0 Moderate protein-calorie malnutrition; B96.5 Pseudomonas (aeruginosa) (mallei) (pseudomallei) as the cause of diseases classified elsewhere; I10 Essential (primary) hypertension; E03.9 Hypothyroidism, unspecified; F32.9 Major depressive disorder, single episode, unspecified; F41.9 Anxiety disorder, unspecified; G89.29 Other chronic pain; M54.9 Dorsalgia, unspecified; K21.9 Gastro-esophageal reflux disease without esophagitis; Z74.01 Bed confinement status; Z66 Do not resuscitate; Z68.23 Body mass index [BMI] 23.0-23.9, adult
CPT/HCPCS: 36415; 70450; 80048; 80053; 80307; 81001; 82077; 83735; 84145; 84443; 85025; 87077; 87086; 87088; 87184; 87186; 87426; 93005; 97162; 97166; 97530; 97535; 97802; 99251; 99284; J7030; A4216; G0463; J0744; J2405

== ENCOUNTER → 2021-04-12 11:27 | Outpatient (CLI) | payer MEDICARE, SELFPAY ==
[2021-04-02 12:27] VITALS: BMI 24.0
--- NOTE | 2021-04-12 11:36 | US_ITS ---
STUDY: RENAL ULTRASOUND - COMPLETE REASON FOR EXAM: Female, 80 years old. UTI TECHNIQUE: Ultrasound evaluation of the kidneys was performed with real-time and static sierra-scale imaging. COMPARISON: None. FINDINGS: RIGHT KIDNEY: Normal location of the right kidney, which is normal in size. The right kidney measures 11.2 cm x 5.2 cm x 3.6 cm. There is a normal cortex of the right kidney. The renal cortex measures 1.0 cm. There is no right renal mass or cyst. There are no right renal calculi. There is no right hydronephrosis. DISTAL RIGHT URETER: There is non-visualization of the distal right ureter. There is no demonstrated right ureterovesical junction calculus. There is a visualized right ureteral jet. LEFT KIDNEY: Normal location of the left kidney, which is normal in size. The left kidney measures 11.3 cm x 5 cm x 5.6 cm. There is a normal cortex of the left kidney. The renal cortex measures 1.5 cm. There is a 2.8 cm x 2.6 cm x 2.4 cm cyst. There are no left renal calculi. There is no left hydronephrosis. DISTAL LEFT URETER: There is non-visualization of the distal left ureter. There is no demonstrated left ureterovesical junction calculus. There is a visualized left ureteral jet. BLADDER: The distended urinary bladder has a volume of 560 ml. The empty urinary bladder has a volume of 328 ml. There is a normal wall thickness of the distended urinary bladder. There is no demonstrated mass within the urinary bladder. There are no demonstrated bladder calculi. US/Kidney and Bladder IMPRESSION: 2.8 cm x 2.6 centimeter by 2.4 cm cyst in the left kidney. Moderate post void residual. Electronically Signed: Luis Toure MD at 12:23 EDT , Service support ,
== END ==
PROVIDERS: PCP Family Medicine; Visit Provider Urology
DX: N39.0 Urinary tract infection, site not specified (principal)
CPT/HCPCS: 76770

== ENCOUNTER 2021-04-18 21:49 | Emergency (ER) | payer MEDICARE, SELFPAY ==
[2021-04-18 21:50] VITALS: BP 190/109; PULSE 100; RESP 18; TEMP 36.1; O2SAT 99; BMI 23.9
[2021-04-18 21:51] VITALS: BP 190/109; PULSE 100; RESP 18; TEMP 36.1; O2SAT 99
--- NOTE | 2021-04-18 22:12 | EX.ED.DYSGE1 ---
HPI History of Present Illness Chief Complaint: Complaint Informant: patient Narrative Narrative: Patient is a 80-year-old female who presents to the emergency department for urinary frequency, low back pain and headache. She states that this is very typical for her to have a urinary tract infection. She states her symptoms have been present over the past for 5 days. She was admitted a few weeks ago for urinary tract infection with hallucinations. She states that she did not wanted to get this point so she came in earlier. She denies any hallucinations now. She denies a fever or chills. She denies nausea/vomiting. She does have a mild headache which she typically gets. She states she does have a history of a dural leak. She has not been taking thing for symptoms. She has been concerned because her blood pressure has been reading high today. She did call her PCP who increased her lisinopril to 10 mg. She denies any chest pain or shortness of breath. [facility] Medical History Brain bleed Spinal cord injury Home Medications levothyroxine 25 mcg PO DAILY 04/22/16 [History Last Taken 04/01/21] estradiol 1 applicatio VAGINAL QHS 09/27/20 [History Last Taken 03/31/21] lisinopril 20 mg PO DAILY 10/21/20 [History Last Taken 04/01/21] ondansetron HCl [Zofran] 4 mg PO Q6H PRN PRN 03/02/21 [History Last Taken Unknown] Dexilant 60 mg PO DAILY 04/01/21 [History Last Taken 04/01/21] sucralfate 1 mg PO TID 04/01/21 [History Last Taken 04/01/21] paroxetine HCl 10 mg PO DAILY #30 tab 04/04/21 [Rx Last Taken Unknown] polyethylene glycol 3350 17 g PO DAILY #0 ea 04/04/21 [Rx Last Taken Unknown] buspirone [BuSpar] 5 mg PO BID 04/18/21 [History Last Taken Unknown] Allergy/AdvReac Type Severity Reaction Status Date / Time cephalexin [From Keflex] Allergy NEEDS Verified 04/18/21 21:52 FOLLOW-UP cyclobenzaprine AdvReac Upset Verified 04/18/21 21:52 [From Flexeril] Stomach erythromycin base AdvReac Upset Verified 04/18/21 21:52 Stomach metoclopramide [From Reglan] AdvReac Upset Verified 04/18/21 21:52 Stomach naproxen AdvReac Upset Verified 04/18/21 21:52 Stomach nitrofurantoin AdvReac Upset Verified 04/18/21 21:52 [From Macrobid] Stomach No blood thinners or aspirin AdvReac Bleeding Uncoded 04/18/21 21:52 Surgical History H/O: hysterectomy History of bladder suspension procedure Hx of cholecystectomy Social History Smoking Status: Never smoker substance use type: does not use ROS ROS ED Constitutional Constitutional ED: Denies chills or fever(s) Eyes Eyes: Denies change in vision ENT ENT ED: Denies epistaxis or rhinorrhea Cardiovascular Cardiovascular: Denies chest pain or palpitations Respiratory/Chest Respiratory/Chest: Denies cough, dyspnea or dyspnea on exertion Gastrointestinal Gastrointestinal: Denies abdominal pain, diarrhea, nausea or vomiting Genitourinary Genitourinary ED: Reports urinary frequency; Denies dysuria or hematuria Musculoskeletal Musculoskeletal: Reports back pain; Denies neck pain Integumentary Denies rash Neurologic Neurologic: Reports headache(s); Denies dizziness or weakness EXAM Physical Exam Const Vital Signs: 04/18/21 21:50 04/18/21 21:51 04/18/21 23:04 Temperature 96.9 F L 96.9 F L 97.4 F L Temperature Source Temporal Temporal Temporal Pulse Rate 100 100 74 Respiratory Rate 18 18 16 Blood Pressure 190/109 H 190/109 H 132/80 H Blood Pressure Mean 136 136 97 Pulse Ox 99 99 98 Oxygen Delivery Method Room Air Positive well nourished and well developed General Appearance ED: well developed and NAD HEENT Reports normocephalic, head/scalp atraumatic and moist mucous membranes Eyes PERRL and EOMs intact bilaterally Neck supple Chest Wall inspection of chest normal Resp normal respiratory effort and clear to auscultation bilaterally Auscultation: Negative for rales, rhonchi or wheezes Cardio regular rate, regular rhythm and no murmurs GI normal to inspection, nondistended, normoactive bowel sounds and non-tender Palpation: soft; Negative for guarding or rebound tenderness present Back/Spine no CVA tenderness Extremity normal to inspection General Extremety ED: Negative for edema or tenderness General Extremity: Negative for edema Neuro CN's II-XII intact bilaterally and no sensory deficits noted Sensorium / Orientation: alert Motor Exam: strength 5/5 throughout Psych mental status grossly normal Skin no rashes or lesions noted MDM MDM MDM Narrative Medical decision making narrative: Patient presents the ED for urinary frequency, low back pain and headache. She states that these are very typical symptoms for UTI. On arrival to the ED she is hypertensive. She did just increase her lisinopril dose today. Otherwise her vital signs within normal limits. She has a benign physical exam. Will check urinalysis at this time. I do not feel lab work or imaging is indicated. Patient's urinalysis did not show any evidence of infection. If she continues to have this urinary frequency she needs to follow-up with her urologist. This time do not feel any antibiotic is indicated. Return precautions are reviewed with her including developing systemic symptoms, burning with urination. She understands and is agreeable this plan. Discharged home in stable condition. All questions were answered. Lab Data Labs: Laboratory Results - last 24 hr 04/18/21 22:10 Urine Color Yellow Urine Clarity Sl. Cloudy Urine pH 8.0 Ur Specific [place] 1.010 Urine Protein Negative Urine Glucose (UA) Normal Urine Ketones Negative Urine Occult Blood 10 H Urine Nitrite Negative Urine Bilirubin Negative Urine Urobilinogen Normal Ur Leukocyte Esterase Negative Urine RBC 0-5 SEEN Urine WBC 0 SEEN Ur Squamous Epith Cells 0-5 SEEN Urine Bacteria 0 SEEN Urine Mucus 0 SEEN Discharge Plan Triage Chief Complaint: Complaint ED Provider: Homero Hyde Dx/Rx/DC Orders Clinical Impression: Urinary frequency Instructions: ED Dysuria, Uncertain Cause (Adult) Prescriptions: No Action levothyroxine 25 MCG tablet 25 mcg PO DAILY RF: 0 estradiol 42.5 GM cream 1 applicatio VAGINAL QHS RF: 0 lisinopril 5 MG tablet 20 mg PO DAILY RF: 0 ondansetron HCl [Zofran] 4 mg tablet 4 mg PO Q6H PRN PRN (Reason: Nausea) RF: 0 sucralfate 1 gram tablet 1 mg PO TID RF: 0 Dexilant 60 mg Capsule,Biphase Delayed Releas 60 mg PO DAILY RF: 0 paroxetine HCl 10 mg Tablet 10 mg PO DAILY Qty: 30 RF: 0 polyethylene glycol 3350 17 gram Powder In Packet 17 g PO DAILY Qty: 0 RF: 0 buspirone [BuSpar] 5 mg Tablet 5 mg PO BID RF: 0 Primary Care Provider: Adi Berry Referrals: Adi Berry MD [Primary Care Provider] - 3-5 Days if not improving Disposition Disposition: Home, Self Care Discharge Date/Time: 04/18/21 23:07
[2021-04-18 22:18] LABS: Bacteria 0 SEEN /hpf (None Seen); Mucous, Urine 0 SEEN /hpf (<or=2+); White Blood Cells 0 SEEN /hpf (0-5)
[2021-04-18 22:28] LABS: Color, Urine Yellow (Yellow); Glucose, Dipstick Normal (Normal); Ketone-Dipstick Negative (Negative); Leukocyte Esterase-Dipstick Negative /ul (Negative); Nitrite-Dipstick Negative (Negative); Occult Blood-Urine 10 /ul (Negative); Protein-Dipstick Negative (Negative); Urine Bilirubin Dipstick Negative (Negative); Urine Clarity Sl. Cloudy (Clear); Urine Urobilinogen Normal (Normal)
[2021-04-18 22:44] LABS: Red Blood Cells-Urine 0-5 SEEN /hpf (0-5); Squamous Epithelial Cells - UA 0-5 SEEN /hpf (5-10)
[2021-04-18 23:04] VITALS: BP 132/80; PULSE 74; RESP 16; TEMP 36.3; O2SAT 98
== END 2021-04-18 23:07 | disposition home or self-care (01) ==
PROVIDERS: Emergency Provider Emergency Medicine; PCP Family Medicine
DX: R35.0 Frequency of micturition (principal); I10 Essential (primary) hypertension; Z79.899 Other long term (current) drug therapy
CPT/HCPCS: 81001; 87086; 87088; 99282

== ENCOUNTER 2021-04-20 10:52 | Observation (INO) | payer MEDICARE, SELFPAY ==
[2021-04-20] VITALS (25 sets, daily range): BP systolic 128–166; BP diastolic 67–98; PULSE 74–90; RESP 13–28; TEMP 35.8–36.7; O2SAT 98–100; BMI 24.2; BMI 23.1
--- NOTE | 2021-04-20 11:09 | CT_ITS ---
STUDY: CT BRAIN WITHOUT CONTRAST REASON FOR EXAM: Female, 80 years old. Altered mental status RADIATION DOSAGE (If Supplied By Facility): CTDIvol = ( 44.99 ) mGy, DLP = ( 745.49 ) mGycm TECHNIQUE: Transaxial CT imaging of the brain was performed without administration of intravenous contrast material. Individualized dose optimization techniques were used for this CT. COMPARISON: Comparison is made with prior study dated 04/01/2021. FINDINGS: Normal soft tissue structures. Normal calvarium. There is mild cerebral atrophy with widening of the extra-axial spaces and ventricular dilatation. Normal white matter tracts of the cerebral hemispheres. Normal basal ganglia and thalami. Normal brainstem. Normal cerebellum. There is no intracranial hemorrhage. There are no findings of an acute ischemic infarction. Atherosclerotic plaque formation of the cavernous portions of the internal carotid arteries bilaterally. Normal visualized paranasal sinuses. CT/Brain/Head without Contrast IMPRESSION: Chronic involutional changes of the brain. Electronically Signed: Luis Toure MD at 12:00 EDT , Service support ,
--- NOTE | 2021-04-20 11:09 | EX.ED.VIS.PS ---
HPI HPI - Psych History of Present Illness Chief Complaint: Overdose Narrative Narrative: 72-year-old female presenting with suicidal ideation and attempt by overdosing on Tylenol. She states he is very depressed. She states she has been down for a long time. She thinks she took about a half a bottle of Tylenol. The bottle holds 100 fast release gelcaps which means she would have ingested fifty 500 mg gel tabs. She denies coingestion. She states this occurred at 5:30 am. [facility] Medical History Brain bleed Spinal cord injury Home Medications levothyroxine 25 mcg PO DAILY 04/22/16 [History Last Taken 04/01/21] estradiol 1 applicatio VAGINAL QHS 09/27/20 [History Last Taken 03/31/21] lisinopril 20 mg PO DAILY 10/21/20 [History Last Taken 04/01/21] ondansetron HCl [Zofran] 4 mg PO Q6H PRN PRN 03/02/21 [History Last Taken Unknown] Dexilant 60 mg PO DAILY 04/01/21 [History Last Taken 04/01/21] sucralfate 1 mg PO TID 04/01/21 [History Last Taken 04/01/21] paroxetine HCl 10 mg PO DAILY #30 tab 04/04/21 [Rx Last Taken Unknown] polyethylene glycol 3350 17 g PO DAILY #0 ea 04/04/21 [Rx Last Taken Unknown] buspirone [BuSpar] 5 mg PO BID 04/18/21 [History Last Taken Unknown] Allergy/AdvReac Type Severity Reaction Status Date / Time cephalexin [From Keflex] Allergy NEEDS Verified 04/20/21 10:53 FOLLOW-UP cyclobenzaprine AdvReac Upset Verified 04/20/21 10:53 [From Flexeril] Stomach erythromycin base AdvReac Upset Verified 04/20/21 10:53 Stomach metoclopramide [From Reglan] AdvReac Upset Verified 04/20/21 10:53 Stomach naproxen AdvReac Upset Verified 04/20/21 10:53 Stomach nitrofurantoin AdvReac Upset Verified 04/20/21 10:53 [From Macrobid] Stomach No blood thinners or aspirin AdvReac Bleeding Uncoded 04/20/21 10:53 Surgical History H/O: hysterectomy History of bladder suspension procedure Hx of cholecystectomy Social History Smoking Status: Never smoker substance use type: does not use ROS ROS ED Constitutional Constitutional ED: Denies chills, fever(s) or subjective Eyes Eyes: Denies blurry vision or diplopia ENT ENT ED: Denies rhinorrhea or sore throat Cardiovascular Cardiovascular: Denies chest pain or palpitations Respiratory/Chest Respiratory/Chest: Denies cough or dyspnea Gastrointestinal Gastrointestinal: Denies abdominal pain, nausea or vomiting Genitourinary Genitourinary ED: Denies dysuria or hematuria Musculoskeletal Musculoskeletal: Denies arthralgias or myalgias Integumentary Denies abscess or rash Neurologic Neurologic: Denies headache(s) or paresthesias Psychiatric Psychiatric: Reports depression, suicidal ideation and suicidal thoughts EXAM Physical Exam Const Vital Signs: 04/20/21 10:55 04/20/21 11:55 04/20/21 12:27 Temperature 98.0 F Temperature Source Axillary Pulse Rate 82 84 78 Respiratory Rate 28 H 20 H 16 Blood Pressure 134/67 H 146/98 H 136/74 H Blood Pressure Mean 89 114 94 Pulse Ox 100 99 99 Oxygen Delivery Method Room Air Room Air Room Air 04/20/21 13:11 Temperature Temperature Source Pulse Rate 82 Respiratory Rate 20 H Blood Pressure 139/88 H Blood Pressure Mean 105 Pulse Ox 100 Oxygen Delivery Method Room Air Positive well nourished General Appearance ED: NAD; Negative for pallor HEENT normocephalic and atraumatic Eyes PERRL and EOMs intact bilaterally General Eye ED: Negative for scleral icterus Resp normal respiratory effort and clear to auscultation bilaterally Cardio Rate: regular rate Rhythm: regular rhythm GI non-tender and non-distended Palpation: soft Extremity normal to inspection General Extremety ED: Negative for edema or tenderness General Extremity: Negative for edema Neuro oriented x3 Sensorium / Orientation: alert Psych Negative for denies hallucinations or denies homicidal ideation Mood & Affect: depressed Thought Content: suicidality Memory / Cognition: memory grossly intact Insight: poor Judgement: poor Skin General Skin Exam: Negative for jaundice or pallor Lesions: no lesions Rashes: no rashes MDM MDM MDM Narrative Medical decision making narrative: Patient presenting with suicidal ideation and attempt to overdose with acetaminophen. Patient is expressing suicidal ideation and does seem to be tearful and depressed. Patient CBC is unremarkable. Renal function electrolytes are normal. Patient's LFTs are normal. Acetaminophen level 465.5. Salicylates negative. Patient was discussed with poison control and they told me to follow the acetaminophen overdose nomogram. Patient was given first dose of Acetadote in the ED. She is also given a liter of IV fluids. Patient in suicide precautions. At one point she did rip out her IV. When patient was discussed with the hospitalist we determined we would sedate her with Geodon rather than restrain her in restraints. Patient stable on admission to the hospital. Impression: 1. Suicidal ideation 2. Suicide attempt 3. Acetaminophen overdose Lab Data Labs: Laboratory Results - last 24 hr 04/20/21 04/20/21 04/20/21 10:26 10:26 10:26 WBC 9.0 RBC 3.59 L Hgb 11.2 L Hct 33.0 L MCV 91.9 MCH 31.2 MCHC 33.9 RDW Std Deviation 41.6 RDW Coeff of Kirit 12.3 Plt Count 391 MPV 8.4 Immature Gran % (Auto) 0.800 Neut % (Auto) 78.2 H Lymph % (Auto) 11.9 L [place] % (Auto) 8.6 Eos % (Auto) 0.1 Baso % (Auto) 0.4 Absolute Neuts (auto) 7.0 Absolute Lymphs (auto) 1.07 Nucleated RBC % 0 Sodium 124 L Potassium 4.3 Chloride 88 L Carbon Dioxide 25.0 Anion Gap 11 BUN 10 Creatinine 0.95 Estim Creat Clear Calc 40.37 Est GFR (MDRD) Af Amer 73 Est GFR (MDRD) Non-Af 61 BUN/Creatinine Ratio 10.6 Glucose 224 H Calcium 8.6 Total Bilirubin 1.00 Direct Bilirubin 0.14 AST 37 ALT 23 Alkaline Phosphatase 65 Total Protein 6.5 Albumin 3.5 Globulin 3.0 Lipase Urine Color Urine Clarity Urine pH Ur Specific [place] Urine Protein Urine Glucose (UA) Urine Ketones Urine Occult Blood Urine Nitrite Urine Bilirubin Urine Urobilinogen Ur Leukocyte Esterase Urine RBC Urine WBC Ur Squamous Epith Cells Urine Bacteria Urine Mucus Salicylates Urine Opiates Screen Urine Methadone Screen Acetaminophen Ur Barbiturates Screen Ur Phencyclidine Scrn Ur Amphetamines Screen U Methamphetamin-MDMA U Benzodiazepines Scrn Urine Cocaine Screen U Cannabinoids Screen Ur Drug Screen Comment Ethyl Alcohol 04/20/21 04/20/21 04/20/21 10:26 11:00 12:15 WBC RBC Hgb Hct MCV MCH MCHC RDW Std Deviation RDW Coeff of Kirit Plt Count MPV Immature Gran % (Auto) Neut % (Auto) Lymph % (Auto) [place] % (Auto) Eos % (Auto) Baso % (Auto) Absolute Neuts (auto) Absolute Lymphs (auto) Nucleated RBC % Sodium Potassium Chloride Carbon Dioxide Anion Gap BUN Creatinine Estim Creat Clear Calc Est GFR (MDRD) Af Amer Est GFR (MDRD) Non-Af BUN/Creatinine Ratio Glucose Calcium Total Bilirubin Direct Bilirubin AST ALT Alkaline Phosphatase Total Protein Albumin Globulin Lipase 96 Urine Color Urine Clarity Urine pH Ur Specific [place] Urine Protein Urine Glucose (UA) Urine Ketones Urine Occult Blood Urine Nitrite Urine Bilirubin Urine Urobilinogen Ur Leukocyte Esterase Urine RBC Urine WBC Ur Squamous Epith Cells Urine Bacteria Urine Mucus Salicylates < 1.7 L Urine Opiates Screen POSITIVE H Urine Methadone Screen NEGATIVE Acetaminophen 465.5 H* Ur Barbiturates Screen NEGATIVE Ur Phencyclidine Scrn NEGATIVE Ur Amphetamines Screen NEGATIVE U Methamphetamin-MDMA NEGATIVE U Benzodiazepines Scrn NEGATIVE Urine Cocaine Screen NEGATIVE U Cannabinoids Screen NEGATIVE Ur Drug Screen Comment Ethyl Alcohol < 3.0 04/20/21 12:15 WBC RBC Hgb Hct MCV MCH MCHC RDW Std Deviation RDW Coeff of Kirit Plt Count MPV Immature Gran % (Auto) Neut % (Auto) Lymph % (Auto) [place] % (Auto) Eos % (Auto) Baso % (Auto) Absolute Neuts (auto) Absolute Lymphs (auto) Nucleated RBC % Sodium Potassium Chloride Carbon Dioxide Anion Gap BUN Creatinine Estim Creat Clear Calc Est GFR (MDRD) Af Amer Est GFR (MDRD) Non-Af BUN/Creatinine Ratio Glucose Calcium Total Bilirubin Direct Bilirubin AST ALT Alkaline Phosphatase Total Protein Albumin Globulin Lipase Urine Color Yellow Urine Clarity Clear Urine pH 7.0 Ur Specific [place] 1.010 Urine Protein 15 H Urine Glucose (UA) 250 H Urine Ketones Negative Urine Occult Blood 10 H Urine Nitrite Negative Urine Bilirubin Negative Urine Urobilinogen Normal Ur Leukocyte Esterase Negative Urine RBC 0-5 SEEN Urine WBC 0-5 SEEN Ur Squamous Epith Cells 0-5 SEEN Urine Bacteria 0 SEEN Urine Mucus 0 SEEN Salicylates Urine Opiates Screen Urine Methadone Screen Acetaminophen Ur Barbiturates Screen Ur Phencyclidine Scrn Ur Amphetamines Screen U Methamphetamin-MDMA U Benzodiazepines Scrn Urine Cocaine Screen U Cannabinoids Screen Ur Drug Screen Comment Ethyl Alcohol Radiography Diagnostic Testing: Radiology Impression Brain CT 04/20/21 11:09 IMPRESSION: Chronic involutional changes of the brain. Electronically Signed: Luis Toure MD at 12:00 EDT , Service support , Discharge Plan Triage Chief Complaint: Overdose ED Provider: Marlon Jones Dx/Rx/DC Orders Primary Care Provider: Adi Berry
[2021-04-20 11:24] LABS: Absolute Lymphocyte Count 1.07 X10^3/uL (0.83-4.51); Basophil# 0.04 X10^3/uL; Basophil% 0.4 % (0-1); Eosinophil# 0.01 X10^3/uL; Eosinophils% 0.1 % (0-5); Hemoglobin 11.2 g/dL (12.0-15.0); Lymphocyte # 1.07 X10^3/ul (0.83-4.51); Lymphocyte % 11.9 % (19-41); Mean Corp Hgb Conc 33.9 g/dL (32-36); Mean Corpuscular Hgb 31.2 pg (27.0-32.0); Mean Corpuscular Volume 91.9 fL (81-99); Mean Platelet Vol. 8.4 fl (6.2-12.0); Monocyte# 0.77 X10^3/uL; Monocyte% 8.6 % (0-10); NRBC Flagged by Analyzer 0 % (0-5); Neutrophil # 7.04 X10^3/uL (2.7-7.7); Neutrophil % 78.2 % (47-70); Platelet Count 391 K/mm3 (150-450); RBC Distribution Width CV 12.3 % (11.6-14.6); RBC Distribution Width SD 41.6 fl (35.1-43.9); Red Blood Count 3.59 M/mm3 (4.2-5.4)
[2021-04-20 11:40] LABS: Anion Gap 11 (5-15); BUN 10 mg/dL (7-18); BUN/Creat Ratio 10.6 RATIO (10-20); Calcium,Total 8.6 mg/dL (8.5-10.1); Chloride 88 mmol/L (98-107); Creatinine, Serum 0.95 mg/dL (0.55-1.02); EST Glomerular Filtration Rate 61 mL/min (>60); Est Glom Filt Rate - Afr Amer 73 mL/min (>60); Estimated Creatinine Clearance 40.37 ml/min; Glucose 224 mg/dL (74-106); Potassium 4.3 mmol/L (3.5-5.1); Sodium Level 124 mmol/L (136-145)
--- NOTE | 2021-04-20 12:00 | CM.ED ---
SOCIAL WORK ASSESSMENT Referral Source: Dr. Jones Reason for Consult: Suicide attempt by overdose of Tylenol Chief Compliant: Patient presents by squad after overdose. Patient admitted to taking half a bottle of Tylenol with the intent to end her life. Patient crying uncontrollably in the ER. Daughter called in, assessment information received from daughter. 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 Support/Resources: Daughters History: None Mental Health Treatment/History: Daughter reports patient with history of depression. Patient self-admitted to inpatient psych 35 years ago. Triggers/Stressors: medical issues. Daughter reports patient had spinal fluid on her brain and a blood patch was placed. Daughter reports since then patient has been complaining of headaches. Daughter reports patient is convinced spinal fluid is leaking and that is the problem. Daughter states patient always believes she has a UTI. Coping Skills: None Substance Abuse History: Denies Risk to Self/Others: Suicidal- Patient admits to suicidal ideation with attempt to end her life by overdose of half a bottle of Tylenol. Daughter reports was informed notes were left stating No , autopsy, can't stand it anymore. Homicidal- Patient denies Mental Status Exam: Orientation- A&Ox2 Appearance/General Behavior: disheveled Mood/Affect: crying, depressed Communication Pattern: responds to some questions Judgement: poor Assessment: Patient presents by squad for overdose of Tylenol. Patient admits to suicide attempt. Dr. Jones completed [place]. Much of information for assessment gathered by patient's daughter, Siena ([phone]) who resides in [place], [place]. Daughter states patient has been dealing with many social stressors including medical issues that patient has been dealing with on and off for some time. Immanuel states has already contacted [facility] in [place] and is requesting referral be made there once patient is medically cleared. Daughter states patient self-admitted to inpatient psych 35 years ago. Patient with history of depression and daughter believes she is treated with medication and counseling. Plan: Anticipate admission due to attempt by overdose of Tylenol. SW to assist with inpatient psych referral once patient is medically cleared. Vashti Card, WRITING CENTER DIRECTOR, SERVICE COORDINATOR [facility]
[2021-04-20 12:16] LABS: Acetaminophen (Tylenol) Level 465.5 ug/mL (10.0-30.0); Alcohol, Blood (Medical)-Serum < 3.0 mg/dL; Salicylate < 1.7 mg/dL (2.8-20.0)
[2021-04-20 12:20] LABS: Bacteria 0 SEEN /hpf (None Seen); Mucous, Urine 0 SEEN /hpf (<or=2+)
--- NOTE | 2021-04-20 12:25 | HP.PCM.HOS_ITS ---
HPI - General General Date of Admission: 04/20/21 Date of Service: 04/20/21 Chief Complaint: Suicide attempt, Tylenol OD HPI Narrative The patient is a 80 y/o F w/ PMHx: HTN, HLD, Hypothyroidism, Hx biliary stent placement (ERCP 09/20/20) with associated bacteremia treated with course cipro, GERD w/ hx gastritis recent 04/01/21 admission with acute pseudomonas UTI with visual hallucinations eventually discharged on 04/04/21 who now re-presents to the [facility] ED on 04/20/21 with history of recent onset suicidal ideations, reported severe depression with self administration of nearly 1/2 bottle tylenol at 5:30 am, noted specifically to be ~50 fast release 500 mg gel tylenol gel capsules. Patient in the ED is unconsolable, crying, asking for us to let her . Work- up in the ED included T 98, heart rate 78, BP 136/74, respiratory rate 16, 99% on room air, CBC with WC 9, hemoglobin 11.2, platelet 391 without marked shift, BMP with sodium 124, chloride 88, glucose 224, urinalysis with specific gravity 1.010, protein 15, glucose 250, negative ketone, occult blood 10, negative nitrite, negative leukocyte Estrace with pending urine RBC, WBC, bacteria and mucus upon requested evaluation, toxicology with salicylate less than 1.7, pend ing UDS, acetaminophen initial level 465.5, CT of the brain with no acute intracranial findings. In the ED patient ministered N-acetylcysteine initial dosing. [facility] Medical History (Updated 04/20/21 @ 14:[address] Gisele Victor MD) Biliary obstruction requiring placement Brain bleed History of biliary stent insertion HLD (hyperlipidemia) HTN (hypertension) Hypothyroidism Spinal cord injury Home Medications levothyroxine 25 mcg PO DAILY 04/22/16 [History Last Taken 04/01/21] estradiol 1 applicatio VAGINAL QHS 09/27/20 [History Last Taken 03/31/21] lisinopril 20 mg PO DAILY 10/21/20 [History Last Taken 04/01/21] ondansetron HCl [Zofran] 4 mg PO Q6H PRN PRN 03/02/21 [History Last Taken Unknown] Dexilant 60 mg PO DAILY 04/01/21 [History Last Taken 04/01/21] sucralfate 1 mg PO TID 04/01/21 [History Last Taken 04/01/21] paroxetine HCl 10 mg PO DAILY #30 tab 04/04/21 [Rx Last Taken Unknown] polyethylene glycol 3350 17 g PO DAILY #0 ea 04/04/21 [Rx Last Taken Unknown] buspirone [BuSpar] 5 mg PO BID 04/18/21 [History Last Taken Unknown] Allergy/AdvReac Type Severity Reaction Status Date / Time cephalexin [From Keflex] Allergy NEEDS Verified 04/20/21 10:53 FOLLOW-UP cyclobenzaprine AdvReac Upset Verified 04/20/21 10:53 [From Flexeril] Stomach erythromycin base AdvReac Upset Verified 04/20/21 10:53 Stomach metoclopramide [From Reglan] AdvReac Upset Verified 04/20/21 10:53 Stomach naproxen AdvReac Upset Verified 04/20/21 10:53 Stomach nitrofurantoin AdvReac Upset Verified 04/20/21 10:53 [From Macrobid] Stomach No blood thinners or aspirin AdvReac Bleeding Uncoded 04/20/21 10:53 Family History (Updated 04/20/21 @ 14:[address] Gisele Victor MD) Mother Heart disease Father Heart disease Surgical History (Updated 04/20/21 @ 14:[address] Gisele Victor MD) H/O: hysterectomy History of bladder suspension procedure Hx of appendectomy Hx of cholecystectomy Social History (Updated 04/20/21 @ 14:[address] Gisele Victor MD) household members: none Smoking Status: Never smoker alcohol intake: never substance use type: does not use ROS ROS Narrative Patient currently being evaluated for overdose, will not answer ROS questions, only noting wanting to , frequently repeating please let me . Review of Systems ROS Unobtainable: due to mental status Vital Signs Vital Signs Vital Signs: 04/20/21 10:55 04/20/21 11:55 Temperature 98.0 F Temperature Source Axillary Pulse Rate 82 84 Respiratory Rate 28 H 20 H Blood Pressure 134/67 H 146/98 H Blood Pressure Mean 89 114 Pulse Ox 100 99 Oxygen Delivery Method Room Air Room Air Weight Weight: 136 lb 10.986 oz Body Mass Index (BMI) 24.2 Physical Exam Narrative Physical Examination: General: Awake, crying inconsolably, laying in the ED bed, not answering any questions aside repeatedly stating please let me , agitated. Skin: Normal color, normal turgor, no icterus, no cyanosis. HEENT: AT/NC, EOMI, PERRLA, dry MM, no carotid bruits or JVD noted. Lungs: Diminished breath sounds, greater bases, moderate effort, no rales, ronchi or wheezing. Heart: Regular rate and rhythm; no gallop, rub audible. Abdomen: Soft, NTTP, ND, normal BS, no HSM. Extremities: No cyanosis, clubbing, or edema. Neurological: Awake, crying inconsolably, laying in the ED bed, not answering any questions aside repeatedly stating please let me , agitated, cognitive function not baseline intact; pupils equally reactive to light and accommodation, cranial nerves II-XII grossly normal, moving all 4 extremities, no focal deficits, strength difficult to assess as not following all requests, at least moderately globally decreased. Psychiatric: Affect appears agitated, depressed, recent suicidal attempts, evident depression. Results Lab / Micro Data Result Diagrams: 04/20/21 10:26 04/20/21 10:26 Labs: Laboratory Results - last 24 hr 04/20/21 10:26: WBC 9.0, RBC 3.59 L, Hgb 11.2 L, Hct 33.0 L, MCV 91.9, MCH 31.2, MCHC 33.9, RDW Std Deviation 41.6, RDW Coeff of Kirit 12.3, Plt Count 391, MPV 8.4, Immature Gran % (Auto) 0.800, Neut % (Auto) 78.2 H, Lymph % (Auto) 11.9 L, [place] % (Auto) 8.6, Eos % (Auto) 0.1, Baso % (Auto) 0.4, Absolute Neuts (auto) 7.0, Absolute Lymphs (auto) 1.07, Nucleated RBC % 0 04/20/21 10:26: Sodium 124 L, Potassium 4.3, Chloride 88 L, Carbon Dioxide 25.0, Anion Gap 11, BUN 10, Creatinine 0.95, Estim Creat Clear Calc 40.37, Est GFR (MDRD) Af Amer 73, Est GFR (MDRD) Non-Af 61, BUN/Creatinine Ratio 10.6, Glucose 224 H, Calcium 8.6 04/20/21 11:00: Salicylates < 1.7 L, Acetaminophen 465.5 H*, Ethyl Alcohol < 3.0 04/20/21 12:15: Ur Drug Screen Comment Radiology Impression Brain CT 04/20/21 11:09 IMPRESSION: Chronic involutional changes of the brain. Electronically Signed: Luis Toure MD at 12:00 EDT , Service support , Assessment & Plan Assessment/Plan (1) Tylenol overdose: QUALIFIERS: Encounter type: initial encounter Injury intent: intentional self-harm Qualified Code(s): T39.1X2A - Poisoning by 4-Aminophenol derivatives, intentional self-harm, initial encounter PLAN: The patient is a 80 y/o F w/ PMHx: HTN, HLD, Hypothyroidism, Hx biliary stent placement with associated bacteremia treated with course cipro, GERD w/ hx gastritis recent 04/01/21 admission with acute pseudomonas UTI with visual hallucinations eventually discharged on 04/04/21 who now re-presents to the [facility] ED on 04/20/21 with history of recent onset suicidal ideations, reported severe depression with self administration of nearly 1/2 bottle tylenol at 5:30 am. 1. Acute intentional Tylenol overdose, suicide attempt: We will admit patient to the ICU, maintain on suicide precautions, continue initial N-acetylcysteine dosing with repeat second and third bag protocols to continue, digital media coordinator consulted and following, poison control aware, will plan repeat CMP, Tylenol level and coags at 12-hour viridiana as well as in a.m., will obtain admission coags is not performed in the ED, initial liver function studies appropriate, awaiting coags as noted, cautiously allow diet if appropriate, secondary to agitation administered Geodon in the ED as pulling out lines which will be repeated if ne cessary, pink slip currently in place, continue aggressive hydration. 2. Hyponatremia, acute, hypovolemic: Patient likely with some chronic component however admission sodium 124 and chloride 88, do suspect poor oral intake with severe depression, aggressively hydrating as noted, repeat CMP planned in 12 hours and in a.m., alter hydration as needed. 3. Hypothyroidism: Continue home synthroid regimen, TSH pending. 4. Hypertension: Continue HTN regimen with hold parameters as needed, PRN hyd ralazine. 5. Hyperlipidemia: Not on regimen, defer to outpatient. 6. History of chronic dural leak: Patient with history of reportedly spinal cord injury and chronic leak following with both anesthesia and neuro following with intermittent blood patching. Admission CT head with no acute intracranial findings as noted. 7. GERD: We will continue patient home sucralfate and Dexilant home regimen. 8. DVT prophylaxis: SCDs, Lovenox. 9. CODE status: Patient HCPROLANDO is her daughter Siena Hay and living will is currently in place. Family updated and discussed case as well as plan of care at length and have confirmed that patient is a DNR CCA, no intubation status. Advanced Care Planning Face to Face Time: 16 minutes. Charges/Coding Visit Charges Inpatient E&M: 45065 Init Hosp L3 Procedures Hospitalists Procedures: 75453 Advncd Care Plan 30 Min
[2021-04-20 12:26] LABS: Color, Urine Yellow (Yellow); Glucose, Dipstick 250 mg/dl (Normal); Ketone-Dipstick Negative (Negative); Leukocyte Esterase-Dipstick Negative /ul (Negative); Nitrite-Dipstick Negative (Negative); Occult Blood-Urine 10 /ul (Negative); Protein-Dipstick 15 mg/dl (Negative); Urine Bilirubin Dipstick Negative (Negative); Urine Clarity Clear (Clear); Urine Urobilinogen Normal (Normal)
[2021-04-20 12:33] LABS: Red Blood Cells-Urine 0-5 SEEN /hpf (0-5); Squamous Epithelial Cells - UA 0-5 SEEN /hpf (5-10); White Blood Cells 0-5 SEEN /hpf (0-5)
[2021-04-20 12:45] LABS: Amphetamine Urine VISTA NEGATIVE (<1000 ng/mL); Barbiturate Urine VISTA NEGATIVE (< 200 ng/mL); Benzodiazepine Urine VISTA NEGATIVE (< 200 ng/mL); Cocaine Urine VISTA NEGATIVE (< 300 ng/mL); Ecstacy Urine VISTA NEGATIVE (< 500 ng/mL); Methadone Urine VISTA NEGATIVE (< 300 ng/mL); PCP Urine VISTA NEGATIVE (< 25 ng/mL); THC Urine VISTA NEGATIVE (< 50 ng/mL); Vista UDS pH Range 6
[2021-04-20] MEDS: 0.9% Normal Saline 1,000 ML 999 ML IV (13:09)
[2021-04-20] MEDS: Ziprasidone IM 20 MG/ML VIAL 10 MG IM (13:09)
[2021-04-20 13:29] LABS: Lipase 96 U/L (73-393)
--- NOTE | 2021-04-20 13:30 | ED.RN ---
called to pharmacy for medication at 1245
[2021-04-20 13:35] LABS: AST(SGOT) 37 U/L (15-37); Alanine Aminotransfer ALT/SGPT 23 U/L (13-56); Albumin, Serum 3.5 g/dL (3.2-5.0); Alkaline Phosphatase 65 U/L (45-117); Bilirubin, Direct 0.14 mg/dL (0.00-0.30); Protein, Total 6.5 g/dL (6.4-8.2)
[2021-04-20] MEDS: DEXTROSE 5% IV (13:37)
[2021-04-20] MEDS: ACETYLCYSTEINE IV (13:37)
--- NOTE | 2021-04-20 13:53 | ED.RN ---
spoke with mamie-updated on pt admission
[2021-04-20 14:17] LABS: Magnesium 1.9 mg/dL (1.6-2.6); Thyroid Stim Hormone (TSH) 0.95 uIU/mL (0.358-3.74)
[2021-04-20 14:21] LABS: International Normalized Ratio 1.1; Prothrombin Time (Protime)PT. 13.2 SECONDS (11.7-14.9)
[2021-04-20 14:22] LABS: Partial Thromboplast Time 33.5 Seconds (24.1-36.2)
[2021-04-20] MEDS: 0.9% Normal Saline 1,000 ML 125 ML IV ×2 (14:24→20:33)
[2021-04-20] MEDS: amLODIPine 5 MG Tablet PO (16:13)
--- NOTE | 2021-04-20 16:53 | CHAPLAIN ---
Type of Pastoral Visit _x__ Initial Visit ___ Follow-up Visit ___ On-call Visit ___ General Patient Visit ___ Spiritual Assessment ___ Family Conference ___ Bereavement ___ Rapid Response ___ Code Blue ___ Other (describe below) Pastoral Care Referral From ___ Patient ___ Family _x__ Nurse ___ Physician ___ Equipment Operating Engineer ___ Curtain Worker _x__ Other (describe below) Sacrament/Intervention ___ Active listening ___ Anointing ___ Oriental Orthodox ___ Bereavement ___ Communion ___ Sara exploration ___ ___ Life review ___ Prayer ___ Reconciliation ___ Sacrament of Sick _x__ Supportive presence ___ Wedding ___ Other (describe below) Pastoral Comments patient had eyes closed when this rubber stamp assembler introduced self and role to patient; pt just repeats over and over that she has to go to the bathroom; sitter in room; pt has a catheter; pt encouraged to just go but she refuses and continues her plea for bathroom; also notified RN; pt is offered support, time to talk, and some words of hope but pt refuses all the above and states that there is no hope;
[2021-04-20] MEDS: Sucralfate 1 GM Tablet PO (21:06)
[2021-04-20] MEDS: busPIRone 5 MG Tablet PO (21:06)
[2021-04-21] VITALS (15 sets, daily range): BP systolic 92–162; BP diastolic 55–82; PULSE 90–113; RESP 14–23; TEMP 35.9–36.8; O2SAT 98–100
[2021-04-21 01:47] LABS: International Normalized Ratio 1.2; Prothrombin Time (Protime)PT. 14.3 SECONDS (11.7-14.9)
[2021-04-21 01:51] LABS: Acetaminophen (Tylenol) Level 24.2 ug/mL (10.0-30.0)
[2021-04-21 02:06] LABS: ALB/GLOB Ratio 1.1 RATIO (0.9-2.4); AST(SGOT) 21 U/L (15-37); Alanine Aminotransfer ALT/SGPT 38 U/L (13-56); Albumin, Serum 3.4 g/dL (3.2-5.0); Alkaline Phosphatase 68 U/L (45-117); Anion Gap 11 (5-15); BUN 6 mg/dL (7-18); BUN/Creat Ratio 10.7 RATIO (10-20); Calcium,Total 8.2 mg/dL (8.5-10.1); Chloride 101 mmol/L (98-107); Creatinine, Serum 0.56 mg/dL (0.55-1.02); EST Glomerular Filtration Rate 111 mL/min (>60); Est Glom Filt Rate - Afr Amer 135 mL/min (>60); Estimated Creatinine Clearance 38.35 ml/min; Glucose 138 mg/dL (74-106); Potassium 3.3 mmol/L (3.5-5.1); Protein, Total 6.4 g/dL (6.4-8.2); Sodium Level 134 mmol/L (136-145)
[2021-04-21] MEDS: 0.9% Normal Saline 1,000 ML 125 ML IV ×2 (04:48→12:55)
[2021-04-21] MEDS: Levothyroxine 25 MCG TABLET PO (05:49)
[2021-04-21] MEDS: Sucralfate 1 GM Tablet PO ×2 (05:51→11:12)
--- NOTE | 2021-04-21 05:54 | EX.PCM.CONCC ---
Assessment & Plan Assessment/Plan (1) Tylenol overdose: QUALIFIERS: Encounter type: initial encounter Injury intent: intentional self-harm Qualified Code(s): T39.1X2A - Poisoning by 4-Aminophenol derivatives, intentional self-harm, initial encounter PLAN: RECOMMENDATIONS: 1. Continue N-acetylcysteine to completion later this morning. 2. Repeat LFTs and coagulation profile after N-acetylcysteine completion. 3. If lab work is unremarkable, the patient is clear from my perspective for psychiatric placement. 4. Continue supplemental IV fluid hydration. Encourage p.o. intake. 5. Will sign off from a critical care perspective. Please call with any additional questions. IMPRESSIONS: 1. Intentional acetaminophen overdose The patient presented to the ED following an attempted suicide by the intentional ingestion of acetaminophen tablets. The patient does have a known history of depression. She did have an elevated acetaminophen level. Poison control was contacted accordingly. The patient was initiated on N-acetylcysteine. Liver function and coagulation profile have remained within normal limits. She is currently scheduled to finish up her last bag of N-acetylcysteine later this morning. Will check repeat LFTs and coagulation profile at that time. If her lab work remained stable, the patient would be clear from a medical perspective to be evaluated for psychiatric placement. 2. Hyponatremia Likely secondary to intravascular volume depletion. The patient has responded appropriately to supplemental IV fluids. 3. Hypothyroidism/hypertension/hyperlipidemia/GERD Complicates care, management, recovery and prognosis. Continue home medications as indicated. This note was generated with [employer] dictation software. It may contain incorrect words, spelling, and punctuation that were not noted in checking the note before signing. HPI Consult Data Date of Consult: 04/21/21 HPI Narrative Reason for Consultation: Acetaminophen overdose HPI Narrative: The patient is a 80-year-old female, with a history as outlined below, who presented to the emergency department on April 20 following an intentional acetaminophen overdose. In total, it was suspected that the patient ingested approximately 50 tablets of the 500 mg gel tablets of Tylenol. This was an intentional attempt at suicide. On presentation to the emergency department, the patient was noted to be afebrile and hemodynamically stable. Initial laboratory evaluation revealed a normal white blood cell count. Coagulation profile was within normal limits. Chemistry profile was notable for a sodium of 124, chloride of 88 and normal liver function studies. Urine analysis was unremarkable. Toxicology screen was negative for the salicylates but positive for urine opiates. Acetaminophen level was noted to be 465. The patient was placed on supplemental IV fluids and initiated on N-acetylcysteine. She was subsequently admitted to the medical intensive care unit for further management. No overnight issues were identified by the nursing staff. The patient remains alert and appropriately interactive. She is hemodynamically stable and maintaining appropriate oxygen saturations on room air. Liver function remains within normal limits. Coagulation profile, likewise, remains within normal limits. FORMERLY [facility], 1928–1983 Medical History (Updated 04/20/21 @ 14:[address] Gisele Victor MD) Biliary obstruction requiring placement Brain bleed History of biliary stent insertion HLD (hyperlipidemia) HTN (hypertension) Hypothyroidism Spinal cord injury Home Medications levothyroxine 25 mcg PO DAILY 04/22/16 [History Last Taken 04/01/21] estradiol 1 applicatio VAGINAL QHS 09/27/20 [History Last Taken 03/31/21] lisinopril 20 mg PO DAILY 10/21/20 [History Last Taken 04/01/21] ondansetron HCl [Zofran] 4 mg PO Q6H PRN PRN 03/02/21 [History Last Taken Unknown] Dexilant 60 mg PO DAILY 04/01/21 [History Last Taken 04/01/21] sucralfate 1 mg PO TID 04/01/21 [History Last Taken 04/01/21] paroxetine HCl 10 mg PO DAILY #30 tab 04/04/21 [Rx Last Taken Unknown] polyethylene glycol 3350 17 g PO DAILY #0 ea 04/04/21 [Rx Last Taken Unknown] buspirone [BuSpar] 5 mg PO BID 04/18/21 [History Last Taken Unknown] Allergy/AdvReac Type Severity Reaction Status Date / Time cephalexin [From Keflex] Allergy NEEDS Verified 04/20/21 10:53 FOLLOW-UP cyclobenzaprine AdvReac Upset Verified 04/20/21 10:53 [From Flexeril] Stomach erythromycin base AdvReac Upset Verified 04/20/21 10:53 Stomach metoclopramide [From Reglan] AdvReac Upset Verified 04/20/21 10:53 Stomach naproxen AdvReac Upset Verified 04/20/21 10:53 Stomach nitrofurantoin AdvReac Upset Verified 04/20/21 10:53 [From Macrobid] Stomach No blood thinners or aspirin AdvReac Bleeding Uncoded 04/20/21 10:53 Family History (Updated 04/20/21 @ 14:[address] Gisele Victor MD) Mother Heart disease Father Heart disease Surgical History (Updated 04/20/21 @ 14:[address] Gisele Victor MD) H/O: hysterectomy History of bladder suspension procedure Hx of appendectomy Hx of cholecystectomy Social History (Updated 04/20/21 @ 14:[address] Gisele Victor MD) household members: none Smoking Status: Never smoker alcohol intake: never substance use type: does not use ROS Constitutional Constitutional: Denies chills, fatigue or fever(s) Eyes Eyes: Denies blurry vision or change in vision ENT HEENT: Denies dizziness, dysphagia or headache(s) Cardiovascular Cardiovascular: Denies chest pain, dizziness or dyspnea Respiratory/Chest Respiratory/Chest: Denies cough or dyspnea Gastrointestinal Gastrointestinal: Denies abdominal pain, diarrhea, nausea or vomiting Genitourinary Genitourinary: Denies difficulty urinating Musculoskeletal Musculoskeletal: Denies arthralgias or back pain Integumentary Integumentary: Denies lesions, rash or skin ulcer Neurologic Neurologic: Denies abnormal gait, abnormal speech or confusion Psychiatric Psychiatric: Reports depression and suicidal ideation Endocrine Endocrinology: Denies fatigue Hematologic/Lymphatic Hematologic/Lymphatic: Denies easy bleeding or easy bruising Physical Exam Const alert and no apparent distress General Appearance: cooperative HEENT normocephalic, head/scalp atraumatic and moist oral mucous membranes Eyes PERRL, EOMs intact bilaterally and conjunctivae normal Neck supple General: trachea midline Resp normal respiratory effort and no use of accessory muscles Auscultation: Negative for rales, rhonchi or wheezes Cardio regular rate and regular rhythm GI normal to inspection, nondistended, normoactive bowel sounds Extremity no clubbing, cyanosis or edema Skin no rashes or lesions noted Neuro CN's II-XII intact bilaterally and moves all extremities Psych Mood & Affect: depressed and flat affect Lab / Micro Data Result Diagrams: 04/20/21 10:26 04/21/21 01:25 Labs: Laboratory Results - last 24 hr 04/20/21 10:26: WBC 9.0, RBC 3.59 L, Hgb 11.2 L, Hct 33.0 L, MCV 91.9, MCH 31.2, MCHC 33.9, RDW Std Deviation 41.6, RDW Coeff of Kirit 12.3, Plt Count 391, MPV 8.4, Immature Gran % (Auto) 0.800, Neut % (Auto) 78.2 H, Lymph % (Auto) 11.9 L, [place] % (Auto) 8.6, Eos % (Auto) 0.1, Baso % (Auto) 0.4, Absolute Neuts (auto) 7.0, Absolute Lymphs (auto) 1.07, Nucleated RBC % 0 04/20/21 10:26: Sodium 124 L, Potassium 4.3, Chloride 88 L, Carbon Dioxide 25.0, Anion Gap 11, BUN 10, Creatinine 0.95, Estim Creat Clear Calc 40.37, Est GFR (MDRD) Af Amer 73, Est GFR (MDRD) Non-Af 61, BUN/Creatinine Ratio 10.6, Glucose 224 H, Calcium 8.6 04/20/21 10:26: Total Bilirubin 1.00, Direct Bilirubin 0.14, AST 37, ALT 23, Alkaline Phosphatase 65, Total Protein 6.5, Albumin 3.5, Globulin 3.0 04/20/21 10:26: Lipase 96 04/20/21 11:00: Salicylates < 1.7 L, Acetaminophen 465.5 H*, Ethyl Alcohol < 3.0 04/20/21 12:15: Urine Opiates Screen POSITIVE H, Urine Methadone Screen NEGATIVE, Ur Barbiturates Screen NEGATIVE, Ur Phencyclidine Scrn NEGATIVE, Ur Amphetamines Screen NEGATIVE, U Methamphetamin-MDMA NEGATIVE, U Benzodiazepines Scrn NEGATIVE, Urine Cocaine Screen NEGATIVE, U Cannabinoids Screen NEGATIVE, Ur Drug Screen Comment 04/20/21 12:15: Urine Color Yellow, Urine Clarity Clear, Urine pH 7.0, Ur Specific [place] 1.010, Urine Protein 15 H, Urine Glucose (UA) 250 H, Urine Ketones Negative, Urine Occult Blood 10 H, Urine Nitrite Negative, Urine Bilirubin Negative, Urine Urobilinogen Normal, Ur Leukocyte Esterase Negative, Urine RBC 0-5 SEEN, Urine WBC 0-5 SEEN, Ur Squamous Epith Cells 0-5 SEEN, Urine Bacteria 0 SEEN, Urine Mucus 0 SEEN 04/20/21 13:50: PT 13.2, INR 1.1, APTT 33.5 04/20/21 13:50: Magnesium 1.9, TSH 0.95 04/21/21 01:25: PT 14.3, INR 1.2 04/21/21 01:25: Sodium 134 L, Potassium 3.3 L, Chloride 101, Carbon Dioxide 22.0, Anion Gap 11, BUN 6 L, Creatinine 0.56, Estim Creat Clear Calc 38.35, Est GFR (MDRD) Af Amer 135, Est GFR (MDRD) Non-Af 111, BUN/Creatinine Ratio 10.7, Glucose 138 H, Calcium 8.2 L, Total Bilirubin 0.70, AST 21, ALT 38, Alkaline Phosphatase 68, Total Protein 6.4, Albumin 3.4, Globulin 3.0, Albumin/Globulin Ratio 1.1 04/21/21 01:25: Acetaminophen 24.2 Micro: Microbiology 04/20/21 13:15 Mucosa - Nose SARS-CoV-2 Antigen (Rapid) - Final Radiology Impression Brain CT 04/20/21 11:09 IMPRESSION: Chronic involutional changes of the brain. Electronically Signed: Luis Toure MD at 12:00 EDT , Service support , Charges/Coding Visit Charges Inpatient E&M: 06191 Init Hosp L3
--- NOTE | 2021-04-21 05:55 | EKG12_ITS ---
Test Reason : AM EKG Blood Pressure : / mmHG Vent. Rate : 095 BPM Atrial Rate : 095 BPM P-R Int : 142 ms QRS Dur : 086 ms QT Int : 354 ms P-R-T Axes : 084 055 080 degrees QTc Int : 444 ms Normal sinus rhythm Septal infarct , age undetermined Abnormal ECG When compared with ECG of 01-APR-2021 15:12, No significant change was found Confirmed by TAMEKA MORRISSEY, CHRIS ([id number]), newspaper managing editor MALKA SORENSON ([id number]) on 04/24/2021 9:59:40 AM Referred By: ZOILA Confirmed By:SUSAN ENGLISH MD
--- NOTE | 2021-04-21 06:11 | PN.HOSP_ITS ---
Subjective Subjective Patient overnight with clinical improvement following continue treatment with IV fluids and regimen recommended per poison control with now completion of her final bag of acetylcysteine. Patient does admit she was attempting suicide and has been severely depressed and anxious. Did discuss at length issues with her ongoing discomfort with dural leaks which have been discussed during her prior admission and from discussion with family had been thoroughly evaluated outpatient and treated by neurology and neurosurgery. Discussed frankly with patient that given current presentation she would require psychiatric placement given medically cleared now. Patient denies fevers, chills, nausea, emesis, abdominal pain, chest pain or dyspnea. Objective Data Objective Data Vital Signs: Vital Signs Temp Pulse Resp BP Pulse Ox 97.1 F L 97 16 146/75 H 100 04/21/21 04:00 04/21/21 06:00 04/21/21 06:00 04/21/21 06:00 04/21/21 06:00 Oxygen Delivery Method Room Air Weight: 130 lb 1.164 oz Body Mass Index (BMI) 23.1 Intake & Output: Intake and Output for Last 24 Hours 04/19/21 04/20/21 04/21/21 23:59 23:59 23:59 Intake Total 3216.14 / 3216.14 1400 / 1400 Output Total 2325 / 2325 1250 / 1250 Balance 891.14 / 891.14 150 / 150 Lab / Micro Data Result Diagrams: 04/21/21 09:55 04/21/21 09:55 Labs: Laboratory Results - last 24 hr 04/20/21 10:26: WBC 9.0, RBC 3.59 L, Hgb 11.2 L, Hct 33.0 L, MCV 91.9, MCH 31.2, MCHC 33.9, RDW Std Deviation 41.6, RDW Coeff of Kirit 12.3, Plt Count 391, MPV 8.4, Immature Gran % (Auto) 0.800, Neut % (Auto) 78.2 H, Lymph % (Auto) 11.9 L, [place] % (Auto) 8.6, Eos % (Auto) 0.1, Baso % (Auto) 0.4, Absolute Neuts (auto) 7.0, Absolute Lymphs (auto) 1.07, Nucleated RBC % 0 04/20/21 10:26: Sodium 124 L, Potassium 4.3, Chloride 88 L, Carbon Dioxide 25.0, Anion Gap 11, BUN 10, Creatinine 0.95, Estim Creat Clear Calc 40.37, Est GFR (MDRD) Af Amer 73, Est GFR (MDRD) Non-Af 61, BUN/Creatinine Ratio 10.6, Glucose 224 H, Calcium 8.6 04/20/21 10:26: Total Bilirubin 1.00, Direct Bilirubin 0.14, AST 37, ALT 23, Alkaline Phosphatase 65, Total Protein 6.5, Albumin 3.5, Globulin 3.0 04/20/21 10:26: Lipase 96 04/20/21 11:00: Salicylates < 1.7 L, Acetaminophen 465.5 H*, Ethyl Alcohol < 3.0 04/20/21 12:15: Urine Opiates Screen POSITIVE H, Urine Methadone Screen NEGATIVE, Ur Barbiturates Screen NEGATIVE, Ur Phencyclidine Scrn NEGATIVE, Ur Amphetamines Screen NEGATIVE, U Methamphetamin-MDMA NEGATIVE, U Benzodiazepines Scrn NEGATIVE, Urine Cocaine Screen NEGATIVE, U Cannabinoids Screen NEGATIVE, Ur Drug Screen Comment 04/20/21 12:15: Urine Color Yellow, Urine Clarity Clear, Urine pH 7.0, Ur Specific [place] 1.010, Urine Protein 15 H, Urine Glucose (UA) 250 H, Urine Ketones Negative, Urine Occult Blood 10 H, Urine Nitrite Negative, Urine B ilirubin Negative, Urine Urobilinogen Normal, Ur Leukocyte Esterase Negative, Urine RBC 0-5 SEEN, Urine WBC 0-5 SEEN, Ur Squamous Epith Cells 0-5 SEEN, Urine Bacteria 0 SEEN, Urine Mucus 0 SEEN 04/20/21 13:50: PT 13.2, INR 1.1, APTT 33.5 04/20/21 13:50: Magnesium 1.9, TSH 0.95 04/21/21 01:25: PT 14.3, INR 1.2 04/21/21 01:25: Sodium 134 L, Potassium 3.3 L, Chloride 101, Carbon Dioxide 22.0, Anion Gap 11, BUN 6 L, Creatinine 0.56, Estim Creat Clear Calc 38.35, Est GFR (MDRD) Af Amer 135, Est GFR (MDRD) Non-Af 111, BUN/Creatinine Ratio 10.7, Glucose 138 H, Calcium 8.2 L, Total Bilirubin 0.70, AST 21, ALT 38, Alkaline Phosphatase 68, Total Protein 6.4, Albumin 3.4, Globulin 3.0, Albumin/Globulin Ratio 1.1 04/21/21 01:25: Acetaminophen 24.2 Micro: Microbiology 04/20/21 13:15 Mucosa - Nose SARS-CoV-2 Antigen (Rapid) - Final Radiography Diagnostic Testing: Radiology Impression Brain CT 04/20/21 11:09 IMPRESSION: Chronic involutional changes of the brain. Electronically Signed: Luis Toure MD at 12:00 EDT , Service support , Physical Exam Narrative Physical Examination: General: Awake, alert, oriented x 3 including to self, place, recent events, cooperative, seated upright in the PCU bed in no apparent distress, more calm today and appropriate. Skin: Normal color, normal turgor, no icterus, no cyanosis. HEENT: AT/NC, EOMI, PERRLA, MMM. Lungs: Mildly diminished, greater bases, appropriate effort, no rales, ronchi or wheezing. Heart: Regular rate and rhythm; no gallop, rub audible. Abdomen: Soft, NTTP, ND, normal BS, no HSM. Extremities: No cyanosis, clubbing, or edema. Neurological: Patient awake, alert, oriented as noted, cognitive function now appears near baseline intact; pupils equally reactive to light and accommodation, cranial nerves II-XII grossly normal, moving all 4 extremities, no focal deficits, strength mildly to moderately global decreased secondary to ongoing chronic issues. Psychiatric: Affect appears fatigued, more calm, day prior had been inconsolable which is now not the case, during discussions does admit to suicide attempt and ongoing depression and anxiety. Assessment & Plan Assessment/Plan (1) Tylenol overdose: QUALIFIERS: Encounter type: initial encounter Injury intent: intentional self-harm Qualified Code(s): T39.1X2A - Poisoning by 4-Aminophenol derivatives, intentional self-harm, initial encounter PLAN: The patient is a 80 y/o F w/ PMHx: HTN, HLD, Hypothyroidism, Hx biliary stent placement with associated bacteremia treated with course cipro, GERD w/ hx gastritis recent 04/01/21 admission with acute pseudomonas UTI with visual hallucinations eventually discharged on 04/04/21 who now re-presents to the [facility] ED on 04/20/21 with history of recent onset suicidal ideations, reported severe depression with self administration of nearly 1/2 bottle tylenol at 5:30 am. 1. Acute intentional Tylenol overdose, suicide attempt: Patient was admitted to the ICU, maintained on suicide precautions, treated with N-acetylcysteine as well as per poison control recommendation specifically doubled 3rd bag and one- time weight-based load of fomepizole given significant Tylenol level upon ini tial presentation. Continue to trend through the evening and treatment CMP as well as Tylenol level and coags with significant improvement. Patient completed last in a sessile sizing bag this morning approximately 10 AM with repeat CMP, Tylenol level undetectable. Patient now cleared from a medical standpoint for transition to psychiatric facility. Patient and is very reticent for transition to psychiatric setting; however discussed at length that this is the appropriate course for her given the severity of this current presentation. 2. Hyponatremia, acute, hypovolemic: Patient likely with some chronic component however admission sodium 124 and chloride 88, recent history suspected poor oral intake with severe depression which was confirmed with patient, administered IV fluids, repeat 04/21/2021 CMP with sodium one thirty-three. 3. Hypothyroidism: Continue home synthroid regimen, TSH 0.95, normal. 4. Hypertension: Continue HTN regimen with hold parameters as needed, PRN hydralazine. 5. Hyperlipidemia: Not on regimen, defer to outpatient. 6. History of chronic dural leak: Patient with history of reportedly spinal cord injury and chronic leak following with both anesthesia and neuro following with intermittent blood patching. During prior admission per discussion with family thorough work-up had been undertaken outpatient as she had been having issues ongoing. Admission CT head with no acute intracranial findings as noted. 7. GERD: We will continue patient home sucralfate and Dexilant home regimen. 8. DVT prophylaxis: SCDs, Lovenox. 9. CODE status: Patient ABDIRIZAK is her daughter Siena Hay and living will is currently in place. DNR-CCA, no intubation status. Charges/Coding Visit Charges Inpatient E&M: 72667 Subs Hosp L2
[2021-04-21] MEDS: Potassium Chloride Oral Tablet 20 MEQ 40 MEQ PO (06:34)
[2021-04-21] MEDS: CHLORHEXIDINE GLUC 2% CLOTH 1 EACH TOWELETTE TOPICAL (08:55)
[2021-04-21] MEDS: busPIRone 5 MG Tablet PO (08:55)
[2021-04-21] MEDS: PARoxetine 10 MG Tablet PO ×2 (08:55→13:07)
[2021-04-21] MEDS: Lisinopril 20 MG Tablet PO (08:55)
[2021-04-21] MEDS: Pantoprazole Sodium 40 MG Tablet PO (08:55)
[2021-04-21] MEDS: Polyethylene Glycol 3350 17 GM PACKET PO (08:55)
[2021-04-21 10:07] LABS: Absolute Lymphocyte Count 0.92 X10^3/uL (0.83-4.51); Absolute Neutrophil Count 7.3 X10^3/uL (2.0-7.7); Basophil# 0.03 X10^3/uL; Basophil% 0.3 % (0-1); Eosinophil# 0.02 X10^3/uL; Eosinophils% 0.2 % (0-5); Hematocrit 36.8 % (37-47); Hemoglobin 12.6 g/dL (12.0-15.0); Lymphocyte # 0.92 X10^3/ul (0.83-4.51); Lymphocyte % 10.6 % (19-41); Mean Corp Hgb Conc 34.2 g/dL (32-36); Mean Corpuscular Volume 90.6 fL (81-99); Mean Platelet Vol. 8.1 fl (6.2-12.0); Monocyte# 0.44 X10^3/uL; NRBC Flagged by Analyzer 0 % (0-5); Neutrophil # 7.27 X10^3/uL (2.7-7.7); Neutrophil % 83.4 % (47-70); Platelet Count 415 K/mm3 (150-450); RBC Distribution Width CV 12.1 % (11.6-14.6); RBC Distribution Width SD 40.3 fl (35.1-43.9); Red Blood Count 4.06 M/mm3 (4.2-5.4); White Blood Count 8.7 K/mm3 (4.4-11.0)
[2021-04-21 10:15] LABS: International Normalized Ratio 1.2; Prothrombin Time (Protime)PT. 14.4 SECONDS (11.7-14.9)
[2021-04-21 10:17] LABS: Partial Thromboplast Time 32.5 Seconds (24.1-36.2)
[2021-04-21 10:25] LABS: AST(SGOT) 19 U/L (15-37); Alanine Aminotransfer ALT/SGPT 36 U/L (13-56); Albumin, Serum 3.2 g/dL (3.2-5.0); Alkaline Phosphatase 66 U/L (45-117); Anion Gap 8 (5-15); BUN 4 mg/dL (7-18); BUN/Creat Ratio 6.7 RATIO (10-20); Calcium,Total 8.4 mg/dL (8.5-10.1); Chloride 102 mmol/L (98-107); EST Glomerular Filtration Rate 103 mL/min (>60); Est Glom Filt Rate - Afr Amer 124 mL/min (>60); Estimated Creatinine Clearance 38.35 ml/min; Globulin 3.2 g/dL (2.2-4.2); Glucose 138 mg/dL (74-106); Potassium 3.3 mmol/L (3.5-5.1); Protein, Total 6.4 g/dL (6.4-8.2); Sodium Level 133 mmol/L (136-145)
[2021-04-21 10:37] LABS: Acetaminophen (Tylenol) Level < 2.0 ug/mL (10.0-30.0)
--- NOTE | 2021-04-21 11:03 | CASEMGMT ---
Social Work SW attended ICU rounds. Pt admitted with overdose and admits to suicide attempt. SW will work to place pt at inpatient psychiatric facility. Nursing to notify SW when pt is medically cleared then process will be started. GIA Marie
--- NOTE | 2021-04-21 11:34 | NURSING ---
Spoke to regarding lab results and completion of Acetylcysteine. Dr. Victor states patient is medically cleared for placement. Order rec'd to change level of care status to MS standard. Will notify
--- NOTE | 2021-04-21 11:57 | CASEMGMT ---
SOCIAL WORK Informed patient is medically cleared. [facility]. Vashti Card, PROJECT CONTROLS SPECIALIST, FIBER MACHINE TENDER
[2021-04-21] MEDS: Ondansetron 4 MG/2 ML Vial IV (12:02)
[2021-04-21] MEDS: 0.9% Saline Lock 10 ML Syringe IV (12:02)
--- NOTE | 2021-04-21 13:17 | CASEMGMT ---
SOCIAL WORK Received call from Roberta with [facility] who reports will be reviewing referral with physician and will call this worker back. [facility] will be able to provide transportation to facility once accepted. Vashti Card MSW,STREETCAR DISPATCHER
--- NOTE | 2021-04-21 13:53 | CASEMGMT ---
SOCIAL WORK Patient accepted to [facility] by Dr. Schmidt. [facility]ath to transport patient and will product picker patient around 3:15p-3:30p. Nurse to call report to [phone]. Patient updated. This worker to call patient's daughter to update. Vashti Card, LEGAL OPERATIONS MANAGER, WARDROBE MANAGER
--- NOTE | 2021-04-21 14:18 | CASEMGMT ---
SOCIAL WORK Call to patient's daughter, Siena to update. Vashti Card, POWDER ROOM ATTENDANT, LOGGING TRACTOR OPERATOR
--- NOTE | 2021-04-21 14:25 | PCM.DC.SUM ---
Providers Date of Admission: 04/20/21 Primary Care Physician: Dr. Adi Berry MD Consultations 04/20/21 14:01 Consult: Deputy [employer] / Pulmonary Medicine Routine Consulting Provider: Fitz Taylor Reason for Consult: Tylenol OD EMERGENT Consult: No MD Notified: Yes Date Notified: 04/20/21 Time Notified: 13:13 Method of Notification: called Reason For Visit: TYLENOL OD Diagnosis Discharge Diagnosis (1) Tylenol overdose: Status: Acute Code(s): T39.1X1A - Poisoning by 4-Aminophenol derivatives, accidental (unintentional), initial encounter Qualifiers: Encounter type: initial encounter Injury intent: intentional self-harm Qualified Code(s): T39.1X2A - Poisoning by 4-Aminophenol derivatives, intentional self-harm, initial encounter Medications at Discharge Home Medications levothyroxine 25 mcg PO DAILY 04/22/16 estradiol 1 applicatio VAGINAL QHS 09/27/20 ondansetron HCl [Zofran] 4 mg PO Q6H PRN PRN 03/02/21 Dexilant 60 mg PO DAILY 04/01/21 sucralfate 1 mg PO TID 04/01/21 polyethylene glycol 3350 17 g PO DAILY #0 ea 04/04/21 buspirone 5 mg PO BID 04/18/21 lisinopril 20 mg PO DAILY 04/21/21 paroxetine HCl [Paxil] 20 mg PO DAILY 04/21/21 Hospital Course Operations None Procedures EKG Summary of Care Provided Minutes Spent on Discharge: 35 Hospital Course: Discharge Diagnoses: 1. Acute intentional Tylenol overdose, suicide attempt 2. Hyponatremia, acute, hypovolemic 3. Hypothyroidism 4. Hypertension 5. Hyperlipidemia 6. History of chronic dural leak 7. GERD 8. DVT prophylaxis: SCDs, Lovenox. 9. CODE status: Patient ABDIRIZAK is her daughter Siena Hay and living will is currently in place. DNR-CCA, no intubation status. Discharge Summary: The patient is a 80 y/o F w/ PMHx: HTN, HLD, Hypothyroidism, Hx biliary stent placement with associated bacteremia treated with course cipro, GERD w/ hx gastritis recent 04/01/21 admission with acute pseudomonas UTI with visual hallucinations eventually discharged on 04/04/21 who now re-presented to the [facility] ED on 04/20/21 with history of recent onset suicidal ideations, reported severe depression with self administration of nearly 1/2 bottle tylenol at 5:30 am. Patient was admitted to the ICU, maintained on suicide precautions, treated with N-acetylcysteine as well as per poison control recommendation specifically doubled 3rd bag and one-time weight-based load of fomepizole given significant Tylenol level upon initial presentation. Continue to trend through the evening and treatment CMP as well as Tylenol level and coags with significant improvement. Patient completed last in a sessile sizing bag this morning approximately 10 AM with repeat CMP, Tylenol level undetectable. Patient cleared from a medical standpoint for transition to psychiatric facility. Prior to discharge patient did complain of dysuria. She did have 04/18/2021 urine culture that was unremarkable however urinalysis was performed and significant therefore patient initiated on oral Levaquin prior to her transition with recommended continuation to completion per physician discretion at her facility and recommended that they contact facility in 48 hours to review urine culture. Discharge Time: > 35 Minutes DAY OF DISCHARGE PROGRESS NOTE: Subjective: Patient without acute event overnight per self and nursing report. Patient does admit to suicide attempts and reports underlying depression and anxiety, ongoing. She continues to perseverate about dural leaks and discussed these at length. Patient denies fever, chills, nausea, emesis, abdominal pain, chest pain or dyspnea. Patient agreeable to discharge to psychiatric facility given this is the recommendation at this time although initially very reticent. Objective: T 97.4, heart rate 97, BP 150/82, respiratory rate 20, 99% on room air. Physical Examination: General: awake, alert, oriented x 3 and cooperative, laying in the ICU bed, no acute distress, interactive and alert. Skin: normal color, normal turgor, no icterus, no cyanosis. HEENT: AT/NC, EOMI, PERRLA, improved MMM. Lungs: CTA bilaterally, moderate effort, mild decrease BL bases, no rales, ronchi or wheezing; Heart: Regular rate and rhythm; no gallop, rub audible. Abdomen: soft, NTTP, ND, normal BS. Extremities: no cyanosis, clubbing, or edema. Neurological: patient awake, alert, oriented as noted; cognitive function appears intact upon questioning; pupils equally reactive to light and accommodation; cranial nerves II-XII grossly normal, moving all 4 extremities, strength mildly to moderately global decrease secondary to chronic underlying abilities. Psychiatric: affect appears intermittently tearful with discussions regarding necessity of transition to psychiatric facility, admits to depression anxiety, admits to recent suicide attempt. Assessment and Plan: Please see hospital summary above. Weight / BMI Weight Weight: 130 lb 1.164 oz Body Mass Index (BMI) 23.1 ABG / Lab / Microbiology Data Result Diagrams: 04/21/21 09:55 04/21/21 09:55 Laboratory: Laboratory Results - last 24 hr 04/21/21 01:25: PT 14.3, INR 1.2 04/21/21 01:25: Sodium 134 L, Potassium 3.3 L, Chloride 101, Carbon Dioxide 22.0, Anion Gap 11, BUN 6 L, Creatinine 0.56, Estim Creat Clear Calc 38.35, Est GFR (MDRD) Af Amer 135, Est GFR (MDRD) Non-Af 111, BUN/Creatinine Ratio 10.7, Glucose 138 H, Calcium 8.2 L, Total Bilirubin 0.70, AST 21, ALT 38, Alkaline Phosphatase 68, Total Protein 6.4, Albumin 3.4, Globulin 3.0, Albumin/Globulin Ratio 1.1 04/21/21 01:25: Acetaminophen 24.2 04/21/21 09:55: WBC 8.7, RBC 4.06 L, Hgb 12.6, Hct 36.8 L, MCV 90.6, MCH 31.0, MCHC 34.2, RDW Std Deviation 40.3, RDW Coeff of Kirit 12.1, Plt Count 415, MPV 8.1, Immature Gran % (Auto) 0.500, Neut % (Auto) 83.4 H, Lymph % (Auto) 10.6 L, Woodward % (Auto) 5.0, Eos % (Auto) 0.2, Baso % (Auto) 0.3, Absolute Neuts (auto) 7.3, Absolute Lymphs (auto) 0.92, Nucleated RBC % 0 04/21/21 09:55: PT 14.4, INR 1.2, APTT 32.5 04/21/21 09:55: Sodium 133 L, Potassium 3.3 L, Chloride 102, Carbon Dioxide 23.0, Anion Gap 8, BUN 4 L, Creatinine 0.60, Estim Creat Clear Calc 38.35, Est GFR (MDRD) Af Amer 124, Est GFR (MDRD) Non-Af 103, BUN/Creatinine Ratio 6.7 L, Glucose 138 H, Calcium 8.4 L, Total Bilirubin 0.60, AST 19, ALT 36, Alkaline Phosphatase 66, Total Protein 6.4, Albumin 3.2, Globulin 3.2, Albumin/Globulin Ratio 1.0 04/21/21 09:55: Acetaminophen < 2.0 L Microbiology: Microbiology 04/20/21 13:15 Mucosa - Nose SARS-CoV-2 Antigen (Rapid) - Final Meaningful Use Info Meaningful Use Diagnoses (Choose all that apply): None applicable Discharge Plan Admission Admit Date/Time: 04/20/21 13:19 Primary Reason for Your Visit: Acute Tylenol OD, Suicide attempt, Hyponatremia (Hypovolemic) Attending Provider: Gisele Victor Primary Care Provider: Adi Berry Consulting Providers: Fitz Taylor Instructions Patient Instructions: Depression and Suicide in ..., ED Overdose, Intentional (Adult) Discharge Orders/Prescriptions Prescriptions: Continued levothyroxine 25 MCG tablet 25 mcg PO DAILY RF: 0 estradiol 42.5 GM cream 1 applicatio VAGINAL QHS RF: 0 ondansetron HCl [Zofran] 4 mg tablet 4 mg PO Q6H PRN PRN (Reason: Nausea) RF: 0 sucralfate 1 gram tablet 1 mg PO TID RF: 0 Dexilant 60 mg Capsule,Biphase Delayed Releas 60 mg PO DAILY RF: 0 polyethylene glycol 3350 17 gram Powder In Packet 17 g PO DAILY Qty: 0 RF: 0 buspirone 5 mg Tablet 5 mg PO BID RF: 0 lisinopril 20 mg tablet 20 mg PO DAILY RF: 0 paroxetine HCl [Paxil] 20 mg tablet 20 mg PO DAILY RF: 0 Referrals / Follow Up: Adi Berry MD [Primary Care Provider] - (Follow-up with PCP within 1-2 days of discharge from Psychiatric facility.) Disposition Disposition (needs filled in before D/C Order can be placed): Psychiatric Hospital or Unit Charges/Coding Visit Charges Inpatient E&M: 69095 Disch Hosp
[2021-04-21 14:26] LABS: Mucous, Urine 0 SEEN /hpf (<or=2+)
[2021-04-21 14:27] LABS: Color, Urine Yellow (Yellow); Glucose, Dipstick Normal (Normal); Ketone-Dipstick Negative (Negative); Leukocyte Esterase-Dipstick 500 /ul (Negative); Nitrite-Dipstick Negative (Negative); Occult Blood-Urine 250 /ul (Negative); Protein-Dipstick 30 mg/dl (Negative); Specific Gravity, Urine 1.015 (1.002-1.030); Urine Bilirubin Dipstick Negative (Negative); Urine Clarity Sl. Cloudy (Clear); Urine Urobilinogen Normal (Normal)
[2021-04-21 14:34] LABS: Bacteria 1+ /hpf (None Seen); Red Blood Cells-Urine 25-50 SEEN /hpf (0-5); Squamous Epithelial Cells - UA 0-5 SEEN /hpf (5-10); White Blood Cells 50-100 SEEN /hpf (0-5)
[2021-04-21] MEDS: levoFLOXacin 250 MG Tablet PO (15:15)
== END 2021-04-21 16:52 | DRG 918 ==
LOC: ED 11:23 → ICU 13:25
PROVIDERS: Admitting Provider Family Medicine; Emergency Provider Student in an Organized Health Care Education/Training Program; PCP Family Medicine; Visit Provider Family Medicine
DX: T39.1X2A Poisoning by 4-Aminophenol derivatives, intentional self-harm, initial encounter (principal); E87.1 Hypo-osmolality and hyponatremia; E86.1 Hypovolemia; E03.9 Hypothyroidism, unspecified; I10 Essential (primary) hypertension; E78.5 Hyperlipidemia, unspecified; Y93.9 Activity, unspecified; Y99.9 Unspecified external cause status; Y92.9 Unspecified place or not applicable; Z79.899 Other long term (current) drug therapy; Z79.890 Hormone replacement therapy; R35.0 Frequency of micturition; F32.9 Major depressive disorder, single episode, unspecified; Z66 Do not resuscitate; K21.9 Gastro-esophageal reflux disease without esophagitis; Z86.69 Personal history of other diseases of the nervous system and sense organs; R94.31 Abnormal electrocardiogram [ECG] [EKG]
CPT/HCPCS: 70450; 80048; 80053; 80076; 80307; 80329; 81001; 82077; 83690; 83735; 84443; 85025; 85610; 85730; 87077; 87086; 87088; 87186; 87426; 93005; 96361; 96365; 96366; 96368; 96372; 96375; 99218; 99282; 99285; J7030; A4216; G0378; G0480; J2405; J3486